=== PATIENT | female | born 1975 | race Caucasian/White ===

== ENCOUNTER 2020-01-09 15:31 | Emergency (ER) | payer OTHER, SELFPAY ==
[2020-01-09 15:36] VITALS: BP 142/82; PULSE 61; RESP 18; TEMP 36.6; O2SAT 100; BMI 49.0
--- NOTE | 2020-01-09 15:46 | ECG_ITS ---
Measurements Intervals [place] Rate: 61 P: 66 CO: 157 QRS: 36 QRSD: 94 T: 61 QT: 423 QTc: 429 SINUS RHYTHM INTERPRETATION BASED ON A DEFAULT AGE OF 40 YEARS Compared to ECG 03/17/2019 23:35:45 No significant changes Electronically Signed On 01-09-2020 20:25:46 SUPERVISOR OF OPERATIONS by Citlaly Jerez M.D. [id number]
== END 2020-01-09 18:40 | disposition left against medical advice (07) ==
LOC: ER 15:42
PROVIDERS: Emergency Provider Family Medicine
DX: R07.81 Pleurodynia (principal); M54.2 Cervicalgia; R53.1 Weakness; R68.84 Jaw pain; M79.602 Pain in left arm; F17.200 Nicotine dependence, unspecified, uncomplicated; Z53.21 Procedure and treatment not carried out due to patient leaving prior to being seen by health care provider
CPT/HCPCS: 93005; 99281; 99283

== ENCOUNTER → 2020-07-11 11:23 | Outpatient (BNVA) | payer OTHER, SELFPAY | PROVIDERS: Visit Provider Nurse Practitioner Family | DX: Z20.828 Contact with and (suspected) exposure to other viral communicable diseases (principal); J06.9 Acute upper respiratory infection, unspecified | CPT/HCPCS: 87635 ==

== ENCOUNTER 2020-09-05 20:00 | Outpatient (CLI) | payer OTHER, SELFPAY | END 2020-09-05 20:01 | disposition home or self-care (01) | LOC: SLEEP 09-06 09:26 | PROVIDERS: Visit Provider Physician Assistant | DX: G47.33 Obstructive sleep apnea (adult) (pediatric) (principal) | CPT/HCPCS: 95810 ==

== ENCOUNTER 2021-01-22 14:47 | Outpatient (CLI) | payer OTHER, SELFPAY ==
--- NOTE | 2021-01-22 14:56 | USCV_ITS ---
Essie Garcia Age: 45 Gender: F : 1975 Exam Date: 01/22/2021 15:09 Ordering Phys: Edna Rodarte PERSONAL SHOPPER Technologist: Edwin Santa Exam Location: [facility] – [place] Indication: LEG SWELLING AND PAIN PROCEDURES: Venous duplex imaging was performed in only the left lower extremity. The following venous structures were evaluated: common femoral vein, profunda vein, proximal portion of the greater saphenous vein, superficial femoral vein, and the popliteal vein. In addition, the posterior tibial and peroneal trunk were evaluated. Serial compression, augmentation maneuvers, and spectral Doppler flow evaluation were performed. FINDINGS: Normal 2-D Doppler and augmentation and compressibility throughout the lower extremity venous structures. Additional imaging through the proximal calf veins also reveals no thrombus. Limited evaluation of the greater saphenous vein is patent with no thrombus.. CONCLUSIONS No evidence of left lower extremity DVT. Neri Altamirano MD (Electronically Signed) Final Date: 22 January 2021 16:50 S
== END 2021-01-22 14:48 | disposition home or self-care (01) ==
LOC: RAD 14:50
PROVIDERS: PCP Nurse Practitioner Family; Visit Provider Nurse Practitioner
DX: M79.89 Other specified soft tissue disorders (principal); M79.605 Pain in left leg
CPT/HCPCS: 93971

== ENCOUNTER 2021-04-28 11:36 | Outpatient (CLI) | payer OTHER, SELFPAY ==
--- NOTE | 2021-04-28 12:20 | XRR_ITS ---
PROCEDURE INFORMATION: Exam: XR Left Knee Exam date and time: 04/28/2021 12:20 PM Age: 46 years old Clinical indication: Pain; Knee; Left; Additional info: Knee pain TECHNIQUE: Imaging protocol: XR Left knee. Views: 1 or 2 views. COMPARISON: No relevant prior studies available. FINDINGS: Bones/joints: Negative for acute bony abnormality. Soft tissues: Normal. XR/XR knee LT 1-2V [id number] IMPRESSION: No acute findings.
--- NOTE | 2021-04-28 12:20 | XRR_ITS ---
PROCEDURE INFORMATION: Exam: XR Right Knee Exam date and time: 04/28/2021 12:20 PM Age: 46 years old Clinical indication: Pain; Knee; Right; Additional info: Knee pain TECHNIQUE: Imaging protocol: XR Right knee. Views: 1 or 2 views. COMPARISON: No relevant prior studies available. FINDINGS: Bones/joints: Normal. Soft tissues: Normal. XR/XR knee RT 1-2V [id number] IMPRESSION: No acute findings.
== END 2021-04-28 11:37 | disposition home or self-care (01) ==
LOC: RAD 11:44
PROVIDERS: PCP Nurse Practitioner Family; Visit Provider Nurse Practitioner
DX: M25.561 Pain in right knee (principal); M25.562 Pain in left knee
CPT/HCPCS: 73560

== ENCOUNTER 2022-02-11 14:20 | Outpatient (CLI) | payer OTHER, SELFPAY ==
--- NOTE | 2022-02-11 14:32 | XR_ITS ---
WS: [id number] XR wrist RT min 3V* [id number] REASON FOR EXAM: PAIN IN RIGHT WRIST FINDINGS: No fracture or focal bone lesion. Unfused ulnar styloid ossification center. Joint spaces of the right wrist are intact and relatively well-preserved No soft tissue abnormality. XR/XR wrist RT min 3V* [id number] IMPRESSION: No significant abnormality.
== END 2022-02-11 14:21 | disposition home or self-care (01) ==
PROVIDERS: PCP Nurse Practitioner Family; Visit Provider Nurse Practitioner Family
DX: M25.531 Pain in right wrist (principal)
CPT/HCPCS: 73110

== ENCOUNTER → 2022-04-04 13:55 | Outpatient (BNVA) | payer OTHER, SELFPAY | PROVIDERS: PCP Nurse Practitioner Family; Visit Provider Podiatrist Foot & Ankle Surgery | DX: M21.612 Bunion of left foot (principal); M79.671 Pain in right foot; M79.672 Pain in left foot | CPT/HCPCS: 73630 ==

== ENCOUNTER → 2022-05-22 16:20 | Outpatient (BNVA) | payer OTHER, SELFPAY | PROVIDERS: PCP Nurse Practitioner Family; Visit Provider Family Medicine | DX: R53.1 Weakness (principal); Z20.822 Contact with and (suspected) exposure to COVID-19 | CPT/HCPCS: 81000; 87635 ==

== ENCOUNTER → 2022-07-04 10:16 | Outpatient (BNVA) | payer OTHER, SELFPAY | PROVIDERS: PCP Nurse Practitioner Family; Visit Provider Emergency Medicine | DX: R50.9 Fever, unspecified (principal); Z20.822 Contact with and (suspected) exposure to COVID-19 | CPT/HCPCS: 87426 ==

== ENCOUNTER 2022-07-10 10:02 | Emergency (ER) | payer OTHER, SELFPAY ==
[2022-07-10 10:07] VITALS: BP 173/104; PULSE 67; RESP 18; TEMP 36.7; O2SAT 96; BMI 52.5
--- NOTE | 2022-07-10 11:48 | W.ED.COVID ---
HPI - COVID General: Chief Complaint: COVID symptoms Stated Complaint: SOB/Covid+ Time Seen by Provider: 07/10/22 12:17 Triage information: Has fever, cough or shortness of breath. Exposure to COVID + person last 14 days History of Present Illness: The patient is in today stating that she tested positive for COVID-19 5 days ago. She reports that over the past 48 hours her fevers have resolved, but she is feeling slightly more short of breath. She feels like she has increased swelling all over her body. She is still coughing. She reports extreme fatigue. She reports that she is monitoring her SPO2 at home and it has been running 93 to 95%. She reports that she is mostly concerned because of her cardiac history. She reports that she has had an FL, and a double bypass surgery. She denies any current chest pain at this time COVID 19 common symptoms: positive chills, cough, non-productive cough, dyspnea, fatigue, body aches, nasal congestion, nausea and diarrhea; negative fever(s), headache(s) or vomiting COVID 19 other sytmptoms: negative chest pain or confusion Onset (ago): day(s) (5) Pertinent comorbid conditions: hypertension, heart disease and obesity COVID Results: SARS-CoV-2 Antigen (Rapid) Positive (Negative) H 07/04/22 10:16 SARS-CoV-2 RNA (RT-PCR) Not detected (NOT DETECTED) 05/22/22 16:20 Review of Systems Const: Reports: chills, body aches and fatigue; Denies: fever(s) ENMT: Reports: nasal congestion Card: Reports: swelling of feet/ankles and dyspnea on exertion; Denies: chest pain, palpitations, irregular heart rhythm, lightheadedness, syncope, pre-syncope or leg pain with exertion Resp: Reports: dyspnea, non-productive cough, wheezing and chest congestion GI: Reports: nausea and diarrhea; Denies: abdominal pain or vomiting : Denies: flank pain, difficulty voiding, dysuria, urinary frequency, urinary urgency or urinary hesitancy Neuro: Denies: headache(s), numbness in extremities, weakness in extremities, sensory changes, lack of coordination, difficulty walking or confusion PFS ED PFSH: Social History Smoking and tobacco status: current every day smoker Physical Exam Const: COMMON NORMALS: no acute distress, patient oriented x3 and alert GENERAL APPEARANCE: cooperative NUTRITIONAL APPEARANCE: obese HENMT: NOSE: Nasal discharge present clear Chest: CHEST: Yes Symmetrical chest wall rise Resp: COMMON NORMALS: normal respiratory effort, No retractions and No use of accessory muscles AUSCULTATION: wheezes scattered wheezes (Scattered expiratory wheezes ) and lung sounds not diminished Cardio: COMMON NORMALS: regular rate, regular rhythm, S1 normal heart sound present and S2 normal heart sound present JUGULAR VENOUS DISTENTION: no JVD RATE: regular rate RHYTHM: regular rhythm HEART SOUNDS: S1 normal heart sound present and S2 normal heart sound present Extremity: GENERAL: Yes edema (Edema bilateral lower extremities. Patient reports chronic) OTHER: Patient reports chronic bilateral lower extremity edema, however she reports that it is a little bit worse over the past week Neuro: COMMON NORMALS: patient oriented x3 SENSORIUM/ORIENTATION: Yes alert Course Vital Signs: Vital signs: Vital Signs Temperature 98.1 F 07/10/22 10:07 Pulse Rate 74 07/10/22 14:14 Respiratory Rate 18 07/10/22 14:14 Blood Pressure 173/104 07/10/22 10:07 Pulse Oximetry 98 07/10/22 14:14 Oxygen Delivery Me thod 07/10/22 10:07 MDM - COVID Medical Decision Making This is a 47-year-old female that is in today for ongoing COVID 19 symptoms. She reports that she tested positive approximately 5 days ago. She reports that she is no longer having fevers, but she is does still have some body aches. She reports being extremely fatigued. She reports an ongoing cough and seemingly worse shortness of breath. She reports that she has been monitoring her SPO2 at home and it has been ranging 93 to 95%. She does have an albuterol inhaler at home. She is mostly concerned because of her cardiac history. She has noted a bit more swelling in her bilateral lower extremities. Differentials include COVID-19, URI, pneumonia, CHF. she is afebrile and here today with blood pressure of 126/87 on recheck. The initial blood pressure recorded was elevated however it was taken right after the patient walked into the ER. On recheck the blood pressure was 126/87. Patient has positive for COVID-19 result from 07/04.. Portable chest x-ray was done no acute changes noted. Advised patient that we will continue conservative treatment at home for this viral respiratory infection. Encouraged coughing and deep breathing exercises, encouraged increased rest, increase fluid intake. Encourage the patient to be up and walking around intermittently at home so she is not just lying in bed for prolonged hours at a time increasing her risk for blood clot. I will start patient on prednisone burst 5-day dose to help with wheezing and respiratory symptoms. Encourage patient to continue use of albuterol inhaler. Advised the patient to follow-up with primary care provider next week. Return to the ER for any new or worsening symptoms, increased shortness of breath, any chest pain. Patient and her spouse are agreeable to discharge instructions. Note is given for work. Lab Data Radiology Impressions Chest X-Ray 07/10/22 12:44 IMPRESSION: 1. No acute cardiopulmonary finding. 2. Mild chronic interstitial changes in the right base. SARS-CoV-2 Antigen (Rapid) Positive (Negative) H 07/04/22 10:16 SARS-CoV-2 RNA (RT-PCR) Not detected (NOT DETECTED) 05/22/22 16:20 Discharge Plan Discharge Patient Disposition: Home Clinical Impression: COVID-19, Viral URI with cough Condition: Stable Prescriptions: New prednisone 20 mg tablet 40 mg PO DAILY 5 Days Qty: 20 0RF No Action aspirin [Adult Aspirin Regimen] 81 mg tablet,delayed release (DR/EC) 81 mg PO ONCE metoprolol succinate 50 mg tablet extended release 24 hr 100 mg PO DAILY levothyroxine 137 mcg capsule 137 mcg PO ONCE lisinopril 10 mg tablet 10 mg PO DAILY clopidogrel [Plavix] 75 mg tablet 75 mg PO ONCE sertraline [Zoloft] 50 mg tablet 50 mg PO DAILY gabapentin 300 mg capsule 300 mg PO DAILY meloxicam 15 mg tablet PO pramipexole 0.5 mg tablet PO pantoprazole 40 mg tablet,delayed release (DR/EC) PO ranolazine 1,000 mg tablet extended release 12 hr PO albuterol sulfate [Ventolin HFA] 90 mcg/actuation HFA aerosol inhaler inhalation furosemide 20 mg tablet PO modafinil 100 mg tablet PO (DME) Articulating AFO to left See Rx Instructions .Route .MEDSUPPLY Qty: 1 0RF Rx Instructions: As directed Discharge Orders: Discharge ED (Routine); Ordered 07/10/22 Ordered By: Melany Sargent Referrals: Meg Sargent FNP [Primary Care Provider] - Discharge Diet: Usual diet Discharge Activity: Increase activity as tolerated Patient Instructions: COVID-19 (Coronavirus Disease 2019) (ED), How to Recover from COVID-19 at Home (ED), Social Distancing Guidelines for COVID-19 (ED) Activity Restrictions/Additional Instructions: Discharge to home. Rest, drink plenty of fluids, be sure to cough and deep breathe 10 times every hour when you are awake. Take medications as prescribed. Follow-up with PCP as needed. Return to the ER for any new or worsening symptoms, increased shortness of breath, difficulty breathing, chest pain. Stand Alone Forms: Work/School Release Coding Level of Care Code ED Gasoline Tester for Carrie Melchor
--- NOTE | 2022-07-10 12:44 | XR_ITS ---
WS: [id number] Exam: XR chest 1V portable [id number] Date/Time of Exam: 07/10/2022 12:57 PM Reason For Exam: shortness of breath, cough, COVID x7 days. Comparison 03/18/2019. The lungs are fully expanded. No acute infiltrates are seen. Mild chronic interstitial changes in the right base are stable. Signs of median sternotomy. Cardiomediastinal silhouette is unremarkable for technique. No pleural effusions. Bony structures are intact. XR/XR chest 1V portable [id number] IMPRESSION: 1. No acute cardiopulmonary finding. 2. Mild chronic interstitial changes in the right base.
[2022-07-10 14:14] VITALS: PULSE 74; RESP 18; O2SAT 98
== END 2022-07-10 14:15 | disposition home or self-care (01) ==
PROVIDERS: Emergency Provider Nurse Practitioner Family; PCP Nurse Practitioner Family
DX: U07.1 COVID-19 (principal); Z79.82 Long term (current) use of aspirin; Z79.02 Long term (current) use of antithrombotics/antiplatelets; F17.210 Nicotine dependence, cigarettes, uncomplicated
CPT/HCPCS: 71045; 99283

== ENCOUNTER 2022-12-22 08:25 | Observation (INO) | payer OTHER, SELFPAY ==
[2022-12-22] VITALS (48 sets, daily range): BP systolic 132–231; BP diastolic 83–120; PULSE 58–66; RESP 12–30; TEMP 36.4–36.7; O2SAT 95–100
--- NOTE | 2022-12-22 08:41 | CT_ITS ---
WS: [id number] CT HEAD NONCONTRAST HISTORY: Symptoms of acute stroke, left-sided weakness. TECHNIQUE: Contiguous axial imaging performed through the brain in 2.5 mm imaging. Bone and soft tiss ue windows. Sagittal and coronal reformats reviewed. All CT scans at [facility] use at least one of these dose optimization techniques: automated exposure control; mA and/or kV adjustment per pa tient size (includes targeted exams where dose is matched to clinical indication); or iterative recon struction. DLP: 1070.58 mGy-cm. COMPARISON: None available. No acute intracranial hemorrhage, midline shift or mass effect. No atrophy or prior infarcts or herniation. No significant atrophy or small vessel disease. Ventricles: Normal size with no hydrocephalus. Paranasal sinuses: Mild mucoperiosteal thickening in the ethmoid air cells. Mastoid air cells: Well pneumatized. Calvarium and scalp: Skull is intact with no soft tissue edema or swelling. CT/CT head thrombolytic [id number] IMPRESSION: 1. No acute intracranial hemorrhage or edema. 2. No sulcal effacement or atrophy.
--- NOTE | 2022-12-22 08:43 | ED_ITS ---
HPI - Neuro Symptoms/Deficit General: Chief Complaint: Neuro Symptoms/Deficit Stated Complaint: numbness on left side Time Seen by Provider: 12/22/22 08:33 History of Present Illness: Patient comes in with numbness of her left tongue, left face, left arm, and left leg that started suddenly about an hour and a half prior to arrival. States she has had episodes of numbness in her tongue in the past that have lasted for 30 minutes to an hour with the last episode being about a week ago. Patient does have a history of coronary artery disease status post stenting and CABG. Associated symptoms: Deny chest pain, headache(s), nausea or vomiting Review of Systems Const: Denies: fever(s) or body aches Eyes: Denies: change in vision or blurry vision ENMT: Denies: throat pain or odynophagia Card: Denies: chest pain or palpitations Resp: Denies: dyspnea or productive cough GI: Denies: abdominal pain, nausea or vomiting : Denies: flank pain or dysuria Musc: Denies: neck pain or back pain Skin/Breast: Denies: rash or pruritus Neuro: Reports: numbness in extremities; Denies: headache(s) Psych: Denies: anxiety or change in appetite Endo: Denies: polyuria or excessive sweating PFSH ED PFSH: Social History Smoking and tobacco status: current every day smoker NIH stroke score NIHSS: Sensory - 8: Mild To Moderate Loss Physical Exam Const: COMMON NORMALS: no acute distress, patient oriented x3, healthy appearing and alert HENMT: COMMON NORMALS: normocephalic and atraumatic HEAD & SCALP: normocephalic and atraumatic Eye: COMMON NORMALS: Equal, round and reactive pupils present and EOMs intact bilaterally PUPIL: Yes Equal, round and reactive pupils present Neck/C-Spine: COMMON NORMALS: full ROM and supple Resp: COMMON NORMALS: normal respiratory effort, No retractions and No use of accessory muscles Cardio: COMMON NORMALS: regular rate and regular rhythm RATE: regular rate RHYTHM: regular rhythm GI: COMMON NORMALS: Normal to inspection, nondistended, normoactive bowel sounds present, Soft to palpation and non-tender PALPATION: Yes Soft to palpation Back/Pelvis: COMMON NORMALS: thoracic and lumbar spine normal to inspection and no thoracic nor lumbar tenderness Extremity: COMMON NORMALS: full ROM Neuro: COMMON NORMALS: patient oriented x3 SENSORIUM/ORIENTATION: Yes alert OTHER: Decreased pinprick sensation on the left face, left arm, left leg Strength is 4-5 in the left leg, 5 out of 5 in the right leg, 5 out of 5 in bilateral upper extremity Psych: COMMON NORMALS: mental status grossly normal and cooperative Skin: COMMON NORMALS: no rashes or lesions noted and no wounds GENERAL SKIN EXAM: no rashes or lesions noted Course Vital Signs: Vital signs: Vital Signs Temperature 97.5 F L 12/22/22 08:27 Pulse Rate 60 12/22/22 10:10 Respiratory Rate 23 H 12/22/22 10:10 Blood Pressure 153/101 12/22/22 10:10 Pulse Oximetry 98 12/22/22 10:10 Oxygen Delivery Me thod 12/22/22 09:00 MDM - Neuro Symptoms/Deficit Medical Decision Making Patient comes in with numbness of her left tongue, left face, left arm, and left leg that started suddenly about an hour and a half prior to arrival. States she has had episodes of numbness in her tongue in the past that have lasted for 30 minutes to an hour with the last episode being about a week ago. Patient does have a history of coronary artery disease status post stenting and CABG. On physical exam she has decreased pinprick sensation to the left face, left arm, and left leg. Strength is 5 out of 5 in bilateral upper extremities and right lower extremity with 4-5 in the left lower extremity. Her NIHSS on initial exam is 1 secondary to sensation loss. Given the timing of onset of symptoms we will activate the stroke team. Will check labs, EKG, CT, consult neurology, and reassess. On reassessment I talked to the patient about the test results. I discussed the case with the hospitalist and we will admit the patient to observation telemetry for further work-up and treatment of a possible stroke. Lab Data 12/22/22 08:42 12/22/22 08:[address] 12/22/22 08:41 IMPRESSION: 1. No acute intracranial hemorrhage or edema. 2. No sulcal effacement or atrophy. Head/Neck CTA 12/22/22 09:24 IMPRESSION: 1. No high-grade cervical carotid artery stenosis identified. 2. Swallowing motion artifact in the distal cervical carotid arteries to the skull base. 3. No thrombus or middle cerebral artery stenosis or plaque identified. 4. Unremarkable [place]. Laboratory Results WBC 7.5 10^3/uL (4.0-10.0) 12/22/22 08:42 RBC 5.25 10^6/uL (4.1-5.3) 12/22/22 08:42 Hgb 16.8 g/dL (11.5-15.3) H 12/22/22 08:42 Hct 51.1 % (37.0-47.0) H 12/22/22 08:42 MCV 97.3 fl (81-99) 12/22/22 08:42 MCH 32.0 pg (28.0-34.0) 12/22/22 08:42 MCHC 32.9 g/dL (30.0-36.0) 12/22/22 08:42 RDW 12.3 % (12.1-15.1) 12/22/22 08:42 Plt Count 150 10^3/cmm (130-400) 12/22/22 08:42 MPV 11.5 fL (7.4-10.4) H 12/22/22 08:42 Neut % (Auto) 60.3 % 12/22/22 08:42 Lymph % (Auto) 31.0 % 12/22/22 08:42 [place] % (Auto) 8.2 % 12/22/22 08:42 Eos % (Auto) 0.1 % 12/22/22 08:42 Baso % (Auto) 0.1 % 12/22/22 08:42 Neut # (Auto) 4.53 10^3/uL (1.8-7.7) 12/22/22 08:42 Lymph # (Auto) 2.3 10^3/uL (0.8-4.8) 12/22/22 08:42 [place] # (Auto) 0.6 10^3/uL (0.2-0.9) 12/22/22 08:42 Eos # (Auto) 0.0 10^3/uL (0.0-0.8) 12/22/22 08:42 Baso # (Auto) 0.0 10^3/uL (0.0-0.1) 12/22/22 08:42 Nucleated RBC % (auto) 0 % 12/22/22 08:42 Nucleated RBCs # 0.0 /100WBC 12/22/22 08:42 PT 13.20 SECONDS (12.1-14.9) 12/22/22 08:42 INR 0.97 (0.8-1.2) 12/22/22 08:42 APTT 30.4 SECONDS (23.9-36.7) 12/22/22 08:42 Sodium 134 mmol/L (136-145) L 12/22/22 08:42 Potassium 4.4 mmol/L (3.5-5.1) 12/22/22 08:42 Chloride 100 mmol/L (98-107) 12/22/22 08:42 Carbon Dioxide 23 mmol/L (22-29) 12/22/22 08:42 Anion Gap 15.4 (5-19) 12/22/22 08:42 BUN 15 mg/dL (6-20) 12/22/22 08:42 Creatinine 0.9 mg/dL (0.5-0.9) 12/22/22 08:42 GFR Calculation 67.1 mL/min (90-130) L 12/22/22 08:42 Glucose 91 mg/dL (65-115) 12/22/22 08:42 POC Glucose 104 mg/dL (70-110) 12/22/22 08:43 Calculated Osmolality 278 mOsm/kg (285-295) L 12/22/22 08:42 Calcium 9.4 mg/dL (8.5-10.5) 12/22/22 08:42 Total Bilirubin 0.6 mg/dL (0.15-1.2) 12/22/22 08:42 AST 87 U/L (0-32) H 12/22/22 08:42 ALT 121 U/L (0-33) H 12/22/22 08:42 Alkaline Phosphatase 116 U/L (35-105) H 12/22/22 08:42 Troponin T Baseline 6 ng/L (0-10) 12/22/22 08:42 Total Protein 7.3 g/dL (6.6-8.7) 12/22/22 08:42 Albumin 4.0 g/dL (3.5-5.2) 12/22/22 08:42 Globulin 3.3 g/dL (1.3-4.6) 12/22/22 08:42 Urine Color Dark yellow (Yellow) 12/22/22 09:34 Urine Appearance Clear (CLEAR) 12/22/22 09:34 Urine pH 5 (5-7) 12/22/22 09:34 Ur Specific [place] 1.015 (1.005-1.030) 12/22/22 09:34 Urine Protein Neg (Negative) 12/22/22 09:34 Urine Glucose (UA) Norm (Normal) 12/22/22 09:34 Urine Ketones Negative (Negative) 12/22/22 09:34 Urine Blood Neg (Negative) 12/22/22 09:34 Urine Nitrate Negative (Negative) 12/22/22 09:34 Urine Bilirubin Neg (Negative) 12/22/22 09:34 Urine Urobilinogen Norm mg/dL (Negative) 12/22/22 09:34 Ur Leukocyte Esterase Negative (Negative) 12/22/22 09:34 Urine Opiates Screen Negative ng/mL (Negative) 12/22/22 09:34 Ur Barbiturates Screen Negative ng/mL (Negative) 12/22/22 09:34 Ur Phencyclidine Scrn Negative ng/mL (Negative) 12/22/22 09:34 Ur Amphetamines Screen Negative ng/mL (Negative) 12/22/22 09:34 U Benzodiazepines Scrn Negative ng/mL (Negative) 12/22/22 09:34 Urine Cocaine Screen Negative ng/mL (Negative) 12/22/22 09:34 U Marijuana (THC) Screen Negative ng/mL (Negative) 12/22/22 09:34 Discharge Plan Discharge Patient Disposition: Placed in Observation Clinical Impression: Stroke-like symptom Coding Level of Care Code ED Signs And Displays Sales Representative for Carrie Melchor
[2022-12-22 08:53] LABS: Glucose Point of Care 104 mg/dL (70-110)
[2022-12-22 09:02] LABS: Basophils % 0.1 %; Eosinophils % 0.1 %; Hematocrit 51.1 % (37.0-47.0); Hemoglobin 16.8 g/dL (11.5-15.3); Lymphocytes # 2.3 10^3/uL (0.8-4.8); Mean Corpuscular HGB Conc 32.9 g/dL (30.0-36.0); Mean Corpuscular Volume 97.3 fl (81-99); Mean Platelet Volume 11.5 fL (7.4-10.4); Monocytes # 0.6 10^3/uL (0.2-0.9); Monocytes % 8.2 %; Neutrophils # 4.53 10^3/uL (1.8-7.7); Neutrophils % 60.3 %; Nucleated Red Blood Cells % 0 %; Platelet Count 150 10^3/cmm (130-400); Red Blood Count 5.25 10^6/uL (4.1-5.3); Red Cell Distribution Width 12.3 % (12.1-15.1); White Blood Count 7.5 10^3/uL (4.0-10.0)
--- NOTE | 2022-12-22 09:10 | ECG_ITS ---
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 Measurements Intervals [place] Rate: 59 P: 45 DC: 156 QRS: 14 QRSD: 92 T: 53 QT: 437 QTc: 436 Interpretive Statements SINUS BRADYCARDIA POSSIBLE ANTERIOR MYOCARDIAL INFARCTION , OF INDETERMINATE AGE [30 ms Q WAVE IN V3/V4, OR R < 0.2 mV IN V4] Compared to ECG 01/09/2020 15:43:34 Myocardial infarct finding now present Sinus rhythm no longer present Electronically Signed On 12-22-2022 11:19:25 PATROL OFFICER by Marquez Woodruff M.D. [id number]
[2022-12-22 09:13] LABS: INR 0.97 (0.8-1.2)
[2022-12-22 09:14] LABS: Partial Thromboplastin Time 30.4 SECONDS (23.9-36.7)
--- NOTE | 2022-12-22 09:15 | PC.PHAR ---
pt states she takes the medications entered-ext med history shows macrobid 100mg bid filled 12/17/22 7d/s pt states not taking states they filled it by mistake-
[2022-12-22 09:20] LABS: Alanine Aminotransferase 121 U/L (0-33); Alkaline Phosphatase 116 U/L (35-105); Anion Gap 15.4 (5-19); Aspartate Amino Transferase 87 U/L (0-32); Blood Urea Nitrogen 15 mg/dL (6-20); Calcium 9.4 mg/dL (8.5-10.5); Carbon Dioxide 23 mmol/L (22-29); Chloride 100 mmol/L (98-107); Creatinine Clr Calc Pharmacy 109.7155; Globulin 3.3 g/dL (1.3-4.6); Glomerular Filtration Rate 67.1 mL/min (90-130); Glucose 91 mg/dL (65-115); Osmolality Calculated 278 mOsm/kg (285-295); Potassium 4.4 mmol/L (3.5-5.1); Sodium 134 mmol/L (136-145); Total Bilirubin 0.6 mg/dL (0.15-1.2); Total Protein 7.3 g/dL (6.6-8.7)
[2022-12-22 09:21] LABS: Troponin(5th) Baseline 6 ng/L (0-10)
--- NOTE | 2022-12-22 09:24 | CT_ITS ---
WS: [id number] CT ANGIOGRAM CEREBRAL AND CAROTID ARTERIES HISTORY: stroke, left-sided weakness. TECHNIQUE: CT angiogram is performed of the carotid and cerebral arteries. During arterial injection imaging is obtained from the skull vertex to the aortic arch in 1.25 mm imaging. Coronal and sagittal reformats are submitted. Additional multi planar reformats of the carotid and cerebral arteries are submitted, MIP imaging also reviewed. NASCET criteria utilized. [facility] at least one of these dose optimization techniques: automated exposure control; mA and/or kV adjust ment per patient size (includes targeted exams where dose is matched to clinical indication); or iter ative reconstruction. CONTRAST: Omnipaque 350; 100 mL IV. DLP: 496.11 mGy.cm COMPARISON: None available. Carotid Angiogram: Right carotid: Common carotid artery: Arises normally from the innominate artery. No significant plaque or stenosis. Internal carotid artery: Small amount of calcified plaque and intimal thickening at the bifurcation. Motion artifact beginning at the skull base and upper cervical region. External carotid artery: Patent. Left carotid: Common carotid artery: Arises normally from the aorta. No significant plaque or stenosis. Internal carotid artery: Small amount of calcified plaque and intimal thickening. Portions of the dis tita cervical carotid artery are distorted by motion artifact. This is probably swallowing artifact. T here is a mild stenosis due to calcified plaque but the exact stenosis is difficult to quantify. External carotid artery: Patent. Right vertebral artery: Unremarkable. Left vertebral artery: Unremarkable. Arises normally from the subclavian artery. Subclavian arteries: Small noncalcified plaque and intimal thickening at the LEFT origin. Negative RI GHT subclavian artery. Upper thorax: 22 Thyroid gland: Normal. Osseous structures: Straightening reversal the normal cervical lordosis. CEREBRAL ANGIOGRAM: Intracranial vertebral arteries: Normal with no significant atherosclerosis. Basilar artery: No significant stenosis or occlusion. No aneurysm. Intracranial Internal carotid arteries: Swallowing motion artifact at the skull base. Normal caliber through the cavernous sinuses. No obstruction. Mild plaque. Middle cerebral arteries: Normal. Anterior cerebral arteries and ACOM: Normal. Posterior cerebral arteries and PCOM's: Normal. Dural venous sinuses are normally enhancing. Mastoid air cells: Normal. Paranasal sinuses: Normal. Calvarium: Normal. CT/CT angio headneck* [id number] IMPRESSION: 1. No high-grade cervical carotid artery stenosis identified. 2. Swallowing motion artifact in the distal cervical carotid arteries to the s kull base. 3. No thrombus or middle cerebral artery stenosis or plaque identified. 4. Unremarkable [place].
[2022-12-22 09:43] LABS: Add Urine Microscopic? NO; Charge for UA Resulting for Rev
[2022-12-22 09:48] LABS: Bilirubin Urine Neg (Negative); Blood Urine Neg (Negative); Glucose Urine UA Norm (Normal); Ketones Urine Negative (Negative); Leukocyte Esterase Urine Negative (Negative); Nitrate Urine Negative (Negative); Protein Urine Neg (Negative); Specific Gravity, Urine 1.015 (1.005-1.030); Urine Appearance Clear (CLEAR); Urine Color Dark Yellow (Yellow); Urobilinogen Urine Norm (Negative); pH Urine 5 (5-7)
[2022-12-22 09:56] LABS: Amphetamines Screen Urine Negative (Negative); Barbiturates Screen Urine Negative (Negative); Benzodiazepines Screen Urine Negative (Negative); Cocaine Screen Urine Negative (Negative); Opiate Screen Urine Negative (Negative); PCP Screen Urine Negative (Negative); THC Screen Urine Negative (Negative)
[2022-12-22] MEDS: iohexol 350 mg/mL 500 mL Btl (per mL) IV (09:59)
--- NOTE | 2022-12-22 10:42 | ECG_ITS ---
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 [id number]
--- NOTE | 2022-12-22 11:25 | PM.HP ---
Providers/Chief Complaint Admitting Physician: William Gates MD, hospitalist Primary Care Provider: JEAN Le Chief Complaint: numbness on left side History of Present Illness Essie Garcia is a 47 year old female presenting to the emergency department with complaints of numbness tingling of her left tongue, left face, left arm and left leg. She also related some left leg weakness that was very mild. She states all the symptoms started around 7 AM at work. She was not exerting herself heavily when the symptoms came on. She also felt slightly nauseated. She denied any chest discomfort. She states symptoms have mainly gone away at this time. Symptomatology lasted from about 7-9 30. In the emergency department she scored a [address] score[address] head, CTA head and neck were both done. She denies any recent illness. She has not had significant cough or shortness of breath more than her baseline. She states she has some secondary to long smoking history. She reports she has some chronic pain, and chronic neck pain. She also relates history of significant anxiety. She has seen a neurologist before, and an MRI was completed in late October which was essentially normal. Since that time however she has had repetitive episodes of midline tongue numbness that would go away on its own. She reports at least 10 episodes with the last being last week. She is compliant with her Plavix and aspirin. No headache. Review of Systems Const: Reports: malaise; Denies: fever(s) or chills Eyes: Denies: change in vision ENMT: Denies: throat pain Card: Denies: chest pain Resp: Denies: dyspnea GI: Reports: nausea; Denies: abdominal pain, vomiting, hematemesis, coffee ground emesis, hematochezia or melena : Denies: flank pain Musc: Reports: neck pain Skin/Breast: Denies: rash Neuro: Reports: weakness in extremities and sensory changes; Denies: headache(s) Psych: Reports: anxiety and depression Endo: Denies: polyuria John/Lymph: Denies: easy bruising All/Imm: Denies: urticaria Medications/Allergies Home Medications Medication Instructions Recorded Confirmed Last Taken Type aspirin 81 mg tablet,delayed 81 mg PO QA 11/10/19 12/22/22 12/22/22 History release (Adult Low Dose Aspirin) clopidogrel 75 mg tablet (Plavix) 75 mg PO BEDTIME 11/10/19 12/22/22 12/21/22 History meloxicam 15 mg tablet 15 mg PO BEDTIME 04/04/22 12/22/22 12/21/22 History pramipexole 0.5 mg tablet 0.5 mg PO DAILY PRN Restless Leg(S) 04/04/22 12/22/22 Unknown History Articulating AFO to left #1 ea 05/02/22 12/22/22 Unknown Rx albuterol sulfate 90 mcg/actuation 2 puff inhalation QID PRN 12/22/22 12/22/22 Unknown History aerosol inhaler (Ventolin HFA) Shortness Of Breath gabapentin 100 mg capsule 100 mg PO BID PRN unknown 12/22/22 12/22/22 Unknown History levothyroxine 175 mcg tablet 175 mcg PO QAM 12/22/22 12/22/22 12/22/22 History metoprolol tartrate 25 mg tablet 12.5 mg PO BID 12/22/22 12/22/22 12/22/22 History omeprazole 40 mg capsule,delayed 40 mg PO BEDTIME 12/22/22 12/22/22 12/21/22 History release ranolazine 1,000 mg 1,000 mg PO Q12H 12/22/22 12/22/22 12/22/22 History tablet,extended release,12 hr Allergies Allergy/AdvReac Type Severity Reaction Status Date / Time codeine Allergy Unknown Unknown Verified 12/22/22 09:05 PFSH Acute PFSH: Medical History (Updated 12/22/22 @ 11:40 by William Gates MD) Anxiety Coronary artery disease GERD (gastroesophageal reflux disease) Hypothyroidism Surgical History (Updated 12/22/22 @ 11:30 by William Gates MD) History of cholecystectomy History of coronary artery bypass graft History of hysterectomy History of tonsillectomy History of tubal ligation Family History (Updated 12/22/22 @ 11:30 by William Gates MD) Other CAD (coronary artery disease) Stroke Social History (Updated 12/22/22 @ 11:30 by William Gates MD) Smoking and tobacco status: current every day smoker Alcohol intake: never Vitals/I&O/Wt Last Vital Signs Temp 97.5 F L 12/22/22 08:27 Pulse 59 L 12/22/22 11:05 Resp 13 12/22/22 11:05 BP 161/94 12/22/22 11:05 Pulse Ox 99 12/22/22 11:05 O2 Del Method 12/22/22 09:00 Weight last 48 hrs Weight 139.344 kg Physical Exam Narrative: General exam is no apparent distress. It is obvious that her swallowing appears intact during the exam, with swallowing saliva, etc without difficulties HEENT: Atraumatic normocephalic. Pupils equally round. Oropharynx clear. Neck is supple no lymphadenopathy thyromegaly Cardiovascular regular rate and rhythm without murmur Lungs clear no wheezing or crackles Abdomen soft with positive bowel sounds. Obese. No obvious organomegaly exams deferred Extremities no cyanosis clubbing or edema Skin no rash Neuro no obvious focal deficits. Refer to NIHSS score of 1 given by the emergency department physician. It is certainly hard to detect any deficit on her general exam currently. Data 12/22/22 08:42 12/22/22 08:42 Other Labs: PT and PTT are normal Calcium 9.4 LFTs slightly elevated as far as AST, ALT, alk phos Troponin 6 with repeat pending TSH 0.12 which I ordered Urinalysis negative Urine drug screen negative CT head no acute findings CTA head and neck no flow-limiting lesions, mild atherosclerotic disease EKG demonstrates normal sinus rhythm, normal axis, poor R wave progression cannot rule out previous anterior myocardial infarction I reviewed her previous outside MRI which she had records available on her phone. A&P Assessment and plan (1) Stroke-like symptom: Patient has had strokelike symptoms involving numbness and tingling left side of face, left arm, left leg and a small amount of weakness detected left leg. Symptoms have already significantly resolved She has history of atherosclerotic disease, and some is seen on her CTA of her head and neck although this is not flow-limiting. CT head was negative Initial NIHSS score 1 Continue to follow neurologic exam Check echocardiogram Continue telemetry Possible event monitor on discharge MR head Continue patient's Plavix Continue aspirin, increase to 162 mg daily Lipid profile in the morning Start statin Permissive hypertension Check chest x-ray I ordered a TSH, as below I reviewed previous MRI from outpatient records (2) Coronary artery disease: Continue her Plavix, aspirin, beta-[place] Add statin (3) Hypothyroidism: Reduce her thyroid hormone (4) Anxiety: Discussed with patient that this may need to be treated in the future. She is worried about side effects of medication. This could be playing a role as well on her clinical presentation. Plan Nicotine dependence. Add nicotine patch Transaminitis. Check hepatitis panel Other medical problems as outlined in past medical history Attestations Medical Necessity Statement*: Will need less than 2 midnight stay for evaluation and treatment of left-sided strokelike symptoms Diagnoses Stroke-like symptom R29.90 Coronary artery disease I25.10 Hypothyroidism E03.9 Anxiety F41.9 Time Spent (min) 47
[2022-12-22 11:27] LABS: Thyroid Stimulating Hormone 0.12 uIU/mL (0.27-4.20)
--- NOTE | 2022-12-22 11:33 | XRR_ITS ---
PROCEDURE INFORMATION: Exam: XR Chest Exam date and time: 12/22/2022 11:41 AM Age: 47 years old Clinical indication: Other: TIA; Prior surgery TECHNIQUE: Imaging protocol: Radiologic exam of the chest. Views: 1 view. COMPARISON: CR XR chest 1V portable [id number] 07/10/2022 1:14 PM FINDINGS: Lungs: Unremarkable. No consolidation. Pleural spaces: Unremarkable. No pleural effusion. No pneumothorax. Heart/Mediastinum: Unremarkable. No cardiomegaly. Bones/joints: Metallic sternotomy wires are present. XR/XR chest 1V portable [id number] IMPRESSION: 1. No acute findings. 2. Metallic sternotomy wires are present
--- NOTE | 2022-12-22 11:33 | USCV_ITS ---
Essie Garcia Age: 47 Gender: F : 1975 Exam Date: 12/22/2022 14:18 Ordering Phys: William Gates MD Technologist: Edwin Santa Exam Location: [facility] [place] Indication: TIA BP: 130 / 87 HR: 61 Rhythm: Sinus Technical Quality: Adequate MEASUREMENTS (Male / Female) Normal Values 2D ECHO LV Diastolic Diameter PLAX 4.8 cm 4.2 - 5.9 / 3.9 - 5.3 cm LV Systolic Diameter PLAX 3.3 cm IVS Diastolic Thickness 1.0 cm 0.6 - 1.0 / 0.6 - 0.9 cm IVS Systolic Thickness 1.0 cm LVPW Diastolic Thickness 1.3 cm 0.6 - 1.0 / 0.6 - 0.9 cm LVPW Systolic Thickness 1.9 cm LVOT Diameter 2.0 cm LV Ejection Fraction 2D Teich 60.5 % LV Ejection Fraction MOD 2C 74.6 % LV Ejection Fraction 2C AL 74.8 % LA Diameter 3.3 cm LA Width 2.8 cm LA Height 4.4 cm RA Width 3.3 cm RA Height 4.6 cm Aorta at Sinotubular Diameter 2.5 cm IVC Diameter 1.7 cm M-MODE Aortic Annulus Diameter 3.0 cm LA Ao Ratio MM 1.0 MV E Point Septal Separation 0.4 cm DOPPLER AV Peak Velocity 152.0 cm/s LVOT Peak Velocity 138.0 cm/s AV Area Cont Eq vti 2.8 cm squared AV Area Cont Eq pk 3.0 cm squared MV Peak Velocity 104.0 cm/s MV Area PHT 3.4 cm squared Mitral E to A Ratio 0.8 MV E' Velocity 35.5 cm/s Mitral E to MV E' Ratio 8.1 Mitral E to LV E' Lateral Ratio 7.6 Mitral E to LV E' Septal Ratio 8.8 TR Peak Velocity 215.8 cm/s TR Peak Gradient 18.6 mmHg TR Mean Velocity 180.7 cm/s TR Mean Gradient 13.4 mmHg TR Velocity Time Integral 54.3 cm Right Atrial Pressure 3.0 mmHg Pulmonary Artery Systolic Pressu 21.6 mmHg PV Peak Velocity 94.3 cm/s RV Acceleration Time 0.1 s RV Ejection Time 0.3 s RV AcT/ET 0.3 FINDINGS Left Ventricle Left ventricle is normal in size. LV systolic function is normal with EF of 55 to 60%. No regional wall motion abnormalities are seen. Grade 1 diastolic dysfunction Right Ventricle Normal in size and function Right Atrium Normal in size Left Atrium Normal in size Mitral Valve Structurally normal mitral valve. Mild mitral regurgitation. Aortic Valve Structurally normal aortic valve. No significant stenosis or regurgitation. Tricuspid Valve Mild tricuspid regurgitation. Pulmonary artery systolic pressure is normal. Pulmonic Valve Not well-visualized Pericardium Normal Aorta Normal in size IVC Appears to be normal CONCLUSIONS LV systolic function is normal with EF 55 to 60%. Grade 1 diastolic dysfunction Mild mitral regurgitation Mild tricuspid regurgitation Compared to prior echocardiogram from 2017, no significant changes are seen. Marquez Woodruff MD (Electronically Signed) Final Date: 22 December 2022 17:59 S
[2022-12-22 12:16] LABS: Troponin 5 2HR Delta 0 ABS# (0-10)
[2022-12-22] MEDS: aspirin 81 mg EC Tablet PO (12:19)
[2022-12-22] MEDS: nicotine 21 mg Patch 1 PATCH TRANSDERMA (12:28)
--- NOTE | 2022-12-22 13:17 | MR_ITS ---
WS: [id number] MRI HEAD WITH CONTRAST TECHNIQUE: Sagittal T1, T2 axial, T2 axial FLAIR, axial susceptibility weighted imaging, axial diffus ion weighted images, and coronal T2 images were obtained. Pre and post-T1 axial and post T1 coronal i mages. ADC and FSPGR images. CLINICAL INFORMATION: left sided numbness, left leg weakness COMPARISON: MRI [address] December 22, 2022 FINDINGS: No evidence of restricted diffusion to suggest acute ischemia. Ventricular system and basal cisterns are patent. No suspicious intracranial signal abnormalities. Normal wing-white differentiation. Serena l posterior fossa. Normal vascular flow voids at the skull base. No extra-axial fluid collections. No evidence of mass or mass effect. Mild mucosal thickening in the paranasal sinuses. Mastoid air cells are well aerated. No hemosiderin on the susceptibly weighted images. Normal optic chiasm and pituitary infundibulum. No abnormal intracranial enhancement. Normal dural venous sinuses. Normal posterior nasopharynx. Norm al parapharyngeal fat. MR/MR head wo/w con [id number] IMPRESSION: 1. No evidence of restricted diffusion to suggest acute ischemia. 2. No suspicious intracranial signal abnormalities. 3. No abnormal intracranial enhancement. 4. No acute intracranial findings.
--- NOTE | 2022-12-22 13:39 | ECG_ITS ---
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 [id number]
[2022-12-22 15:12] LABS: Troponin 5 6HR Delta 0 ng/L (0-12)
[2022-12-22 15:14] LABS: Hepatitis A Antibody IgM Non-Reactive (Nonreactive); Hepatitis B Core IgM Non-Reactive (Nonreactive); Hepatitis B Surface Antigen Non-Reactive (Nonreactive); Hepatitis C Virus Antibody Non-Reactive (Nonreactive)
[2022-12-22] MEDS: gadobenate dimeglumine 20 mL vial IV (16:34)
[2022-12-22] MEDS: metoprolol tartrate 25 mg Tablet 12.5 MG PO (18:13)
--- NOTE | 2022-12-22 18:13 | PM.DCS ---
Discharge Providers Date of Admission: 12/22/22 10:46 Date of Discharge: December 22, 2022 Attending Provider at Admission: William Gates MD Attending Provider at Discharge: William Gates MD Primary Care Provider: JEAN Le Diagnoses at Discharge Discharge Diagnosis (1) Stroke-like symptom: Status: Acute (2) Coronary artery disease: Status: Acute (3) Hypothyroidism: Status: Acute (4) Anxiety: Status: Acute Reason for Visit Reason for Visit: numbness on left side Hospital Course Hospital Course Essie is a 47-year-old white female who presented to the hospital with complaints of numbness and tingling around her left tongue, left face, left arm and left leg. There was some question about mild diminished strength left lower extremity. By the time I had seen her her neurologic symptoms gone away. She had had a CT head which demonstrated no acute changes, no bleed, no obvious CVA. CTA head and neck demonstrated no thrombus. EKG demonstrated normal sinus rhythm. She was placed in the hospital on telemetry, with orders for an MRI as well as an echocardiogram. MRI demonstrated no acute findings. Prior to her echocardiogram coming back patient reported she wanted to leave. It was apparent from her desire that she would leave AGAINST MEDICAL ADVICE or discharge, but either way she would be leaving. I discussed with her the risks and benefits of discharge over the phone as I was not present at the hospital when she made this decision. She demonstrated understanding of risks of early discharge without full results of test or follow-up arranged. She reported to me she would see her nurse practitioner promptly after discharge, and arrange follow-up with her neurologist. I discussed with her that her echocardiogram was not available, but would be available likely the next day and this would be forwarded to her nurse practitioner. I stated I would try to contact if it was markedly abnormal. I discussed with her medication changes such as increasing her aspirin to 162 mg, initiating a statin, reducing her dose of levothyroxine all of which she agreed to at this time. Echocardiogram came back after she left with a normal EF, grade 1 diastolic dysfunction, mild mitral and tricuspid regurgitation and no real significant change from previous echocardiogram. I would recommend an event monitor be placed, and contacted her primary care provider regarding this. Physical Exam Narrative: See exam done earlier today Discharge Data Studies Completed and Pending Completed Studies During Hospitalization Category Date Time Status CT angio headneck* [id number] Stat Cat Scan 12/22/22 09:[address] head thrombolytic [id number] Stat Cat Scan 12/22/22 08:41 Completed XR chest 1V portable [id number] Stat Exams 12/22/22 11:33 Completed MR head wo/w con [id number] Routine MRI 12/22/22 13:17 Completed CV. echo complete* [id number] Routine Ultrasound 12/22/22 11:33 Completed Pending at discharge Category Date Time Status CBC Auto Diff [Complete Blood Count w/Auto] AM LABS Lab 12/23/22 04:00 Ordered CMP [Comprehensive Metabolic Panel] AM LABS Lab 12/23/22 04:00 Ordered Hemoglobin A1C AM LABS Lab 12/23/22 04:00 Ordered Lipid Panel AM LABS Lab 12/23/22 04:00 Ordered Radiology Impressions Head CT 12/22/22 08:41 IMPRESSION: 1. No acute intracranial hemorrhage or edema. 2. No sulcal effacement or atrophy. Head/Neck CTA 12/22/22 09:24 IMPRESSION: 1. No high-grade cervical carotid artery stenosis identified. 2. Swallowing motion artifact in the distal cervical carotid arteries to the skull base. 3. No thrombus or middle cerebral artery stenosis or plaque identified. 4. Unremarkable [facility]. Chest X-Ray 12/22/22 11:33 IMPRESSION: 1. No acute findings. 2. Metallic sternotomy wires are present Head MRI 12/22/22 13:17 IMPRESSION: 1. No evidence of restricted diffusion to suggest acute ischemia. 2. No suspicious intracranial signal abnormalities. 3. No abnormal intracranial enhancement. 4. No acute intracranial findings. Laboratory Results WBC 7.5 10^3/uL (4.0-10.0) 12/22/22 08:42 RBC 5.25 10^6/uL (4.1-5.3) 12/22/22 08:42 Hgb 16.8 g/dL (11.5-15.3) H 12/22/22 08:42 Hct 51.1 % (37.0-47.0) H 12/22/22 08:42 MCV 97.3 fl (81-99) 12/22/22 08:42 MCH 32.0 pg (28.0-34.0) 12/22/22 08:42 MCHC 32.9 g/dL (30.0-36.0) 12/22/22 08:42 RDW 12.3 % (12.1-15.1) 12/22/22 08:42 Plt Count 150 10^3/cmm (130-400) 12/22/22 08:42 MPV 11.5 fL (7.4-10.4) H 12/22/22 08:42 Neut % (Auto) 60.3 % 12/22/22 08:42 Lymph % (Auto) 31.0 % 12/22/22 08:42 Daniels % (Auto) 8.2 % 12/22/22 08:42 Eos % (Auto) 0.1 % 12/22/22 08:42 Baso % (Auto) 0.1 % 12/22/22 08:42 Neut # (Auto) 4.53 10^3/uL (1.8-7.7) 12/22/22 08:42 Lymph # (Auto) 2.3 10^3/uL (0.8-4.8) 12/22/22 08:42 Daniels # (Auto) 0.6 10^3/uL (0.2-0.9) 12/22/22 08:42 Eos # (Auto) 0.0 10^3/uL (0.0-0.8) 12/22/22 08:42 Baso # (Auto) 0.0 10^3/uL (0.0-0.1) 12/22/22 08:42 Nucleated RBC % (auto) 0 % 12/22/22 08:42 Nucleated RBCs # 0.0 /100WBC 12/22/22 08:42 PT 13.20 SECONDS (12.1-14.9) 12/22/22 08:42 INR 0.97 (0.8-1.2) 12/22/22 08:42 APTT 30.4 SECONDS (23.9-36.7) 12/22/22 08:42 Sodium 134 mmol/L (136-145) L 12/22/22 08:42 Potassium 4.4 mmol/L (3.5-5.1) 12/22/22 08:42 Chloride 100 mmol/L (98-107) 12/22/22 08:42 Carbon Dioxide 23 mmol/L (22-29) 12/22/22 08:42 Anion Gap 15.4 (5-19) 12/22/22 08:42 BUN 15 mg/dL (6-20) 12/22/22 08:42 Creatinine 0.9 mg/dL (0.5-0.9) 12/22/22 08:42 GFR Calculation 67.1 mL/min (90-130) L 12/22/22 08:42 Glucose 91 mg/dL (65-115) 12/22/22 08:42 POC Glucose 104 mg/dL (70-110) 12/22/22 08:43 Calculated Osmolality 278 mOsm/kg (285-295) L 12/22/22 08:42 Calcium 9.4 mg/dL (8.5-10.5) 12/22/22 08:42 Total Bilirubin 0.6 mg/dL (0.15-1.2) 12/22/22 08:42 AST 87 U/L (0-32) H 12/22/22 08:42 ALT 121 U/L (0-33) H 12/22/22 08:42 Alkaline Phosphatase 116 U/L (35-105) H 12/22/22 08:42 Troponin T Baseline 6 ng/L (0-10) 12/22/22 08:42 Troponin T 120 Minute 6.00 ng/L (0-10) 12/22/22 11:22 Delta Troponin T 0 ABS# (0-10) 12/22/22 11:22 Troponin T Hi Sens 6Hr 6.00 ng/L (0-10) 12/22/22 14:25 Troponin T Hi Sens 6Hr Delta 0 ng/L (0-12) 12/22/22 14:25 Total Protein 7.3 g/dL (6.6-8.7) 12/22/22 08:42 Albumin 4.0 g/dL (3.5-5.2) 12/22/22 08:42 Globulin 3.3 g/dL (1.3-4.6) 12/22/22 08:42 TSH 0.12 uIU/mL (0.27-4.20) L 12/22/22 08:45 Urine Color Dark yellow (Yellow) 12/22/22 09:34 Urine Appearance Clear (CLEAR) 12/22/22 09:34 Urine pH 5 (5-7) 12/22/22 09:[address] 1.015 (1.005-1.030) 12/22/22 09:34 Urine Protein Neg (Negative) 12/22/22 09:34 Urine Glucose (UA) Norm (Normal) 12/22/22 09:34 Urine Ketones Negative (Negative) 12/22/22 09:34 Urine Blood Neg (Negative) 12/22/22 09:34 Urine Nitrate Negative (Negative) 12/22/22 09:34 Urine Bilirubin Neg (Negative) 12/22/22 09:34 Urine Urobilinogen Norm mg/dL (Negative) 12/22/22 09:34 Ur Leukocyte Esterase Negative (Negative) 12/22/22 09:34 Urine Opiates Screen Negative ng/mL (Negative) 12/22/22 09:34 Ur Barbiturates Screen Negative ng/mL (Negative) 12/22/22 09:34 Ur Phencyclidine Scrn Negative ng/mL (Negative) 12/22/22 09:34 Ur Amphetamines Screen Negative ng/mL (Negative) 12/22/22 09:34 U Benzodiazepines Scrn Negative ng/mL (Negative) 12/22/22 09:34 Urine Cocaine Screen Negative ng/mL (Negative) 12/22/22 09:34 U Marijuana (THC) Screen Negative ng/mL (Negative) 12/22/22 09:34 Hepatitis A IgM Ab Non-reactive (Nonreactive) 12/22/22 14:25 Hep Bs Antigen Non-reactive (Nonreactive) 12/22/22 14:25 Hep B Core IgM Ab Non-reactive (Nonreactive) 12/22/22 14:25 Hepatitis C Antibody Non-reactive (Nonreactive) 12/22/22 14:25 Vitals Last Vital Signs Temp 97.7 F 12/22/22 15:47 Pulse 64 12/22/22 15:47 Resp 18 12/22/22 15:47 BP 141/93 12/22/22 15:47 Pulse Ox 98 12/22/22 15:47 O2 Del Method 12/22/22 15:47 Discharge Plan Discharge Patient Disposition: Home Condition: Stable Prescriptions: New atorvastatin 40 mg Tablet 40 mg PO BEDTIME Qty: 30 0RF levothyroxine 150 mcg Tablet 150 mcg PO DAILY Qty: 30 0RF aspirin 81 mg Tablet,Delayed Release (Dr/Ec) 162 mg PO DAILY Qty: 60 0RF Continued clopidogrel [Plavix] 75 mg tablet 75 mg PO BEDTIME pramipexole 0.5 mg tablet 0.5 mg PO DAILY PRN (Reason: Restless Leg(S)) (DME) Articulating AFO to left See Rx Instructions .Route .MEDSUPPLY Qty: 1 0RF Rx Instructions: As directed omeprazole 40 mg capsule,delayed release(DR/EC) 40 mg PO BEDTIME Ventolin HFA 90 mcg/actuation Hfa Aerosol Inhaler 2 puff INHALATION QID PRN (Reason: Shortness Of Breath) metoprolol tartrate 25 mg tablet 12.5 mg PO BID ranolazine 1,000 mg tablet extended release 12 hr 1,000 mg PO Q12H Discontinued aspirin [Adult Low Dose Aspirin] 81 mg tablet,delayed release (DR/EC) 81 mg PO QAM meloxicam 15 mg tablet 15 mg PO BEDTIME levothyroxine 175 mcg tablet 175 mcg PO QAM gabapentin 100 mg Capsule 100 mg PO BID PRN (Reason: unknown) Discharge Orders: Discharge Order (Routine); Ordered 12/22/22 Ordered By: William Gates Referrals: Meg Sargent, COMPLIANCE NURSE [Primary Care Provider] - 4-7 days (faxed for appointment with MEG SARGENT COMPLIANCE NURSE) Discharge Diet: Cardiac Patient Instructions: Levothyroxine (By mouth), Aspirin (By mouth), Atorvastatin (By mouth) (Lipitor), Transient Ischemic Attack (DC), Coronary Artery Disease (DC), Opioid Safety Activity Restrictions/Additional Instructions: Take all meds as prescribed. Follow up with your PCP in 3-5 days. Return for any return of symptoms.. Keep your neurology appointment. Discharge Attestations Time Spent in Discharge Care*: greater than 30 min Time Spent in Smoking Cessation: 3-5 minutes Quality Metrics Clinical Quality Measures [ No reported AMI, CVA or VTE this stay] Coding Level of Care Code 51118 Total time (in minutes) for Discharge: 38 Other Coding Information Focused coding review requested patient was discharged unexpectantly same day as admission. Diagnoses Stroke-like symptom R29.90 Coronary artery disease I25.10 Hypothyroidism E03.9 Anxiety F41.9
[2022-12-22] MEDS: ranolazine (12HR) 500 mg Tablet 1000 MG PO (18:14)
--- NOTE | 2022-12-22 19:47 | PC.NURSE ---
Discussed discharge order with patient and spouse. Patient will call for appointment for follow up. Discussed new medications and discontinued medications. Patient verbalized understanding
== END 2022-12-22 19:54 | disposition home or self-care (01) ==
LOC: ER 12:29 → MEDSURG 12:35
PROVIDERS: Admitting Provider Internal Medicine; Emergency Provider Emergency Medicine; PCP Nurse Practitioner Family; Visit Provider Internal Medicine
DX: R29.90 Unspecified symptoms and signs involving the nervous system (principal); I25.10 Atherosclerotic heart disease of native coronary artery without angina pectoris; E03.9 Hypothyroidism, unspecified; F41.9 Anxiety disorder, unspecified; I49.5 Sick sinus syndrome; F17.210 Nicotine dependence, cigarettes, uncomplicated; Z79.82 Long term (current) use of aspirin
CPT/HCPCS: 36415; 36416; 70450; 70496; 70498; 70553; 71045; 80053; 80074; 80306; 81003; 82962; 84443; 84484; 85025; 85610; 85730; 93005; 93306; 97165; 99285; A9577; G0378; Q9967

== ENCOUNTER 2023-06-08 14:36 | Outpatient (CLI) | payer SELFPAY ==
--- NOTE | 2023-06-08 14:58 | XRR_ITS ---
PROCEDURE INFORMATION: Exam: XR Left Knee Exam date and time: 06/08/2023 3:03 PM Age: 48 years old Clinical indication: Pain; Knee; Right; Additional info: Pain in left knee TECHNIQUE: Imaging protocol: Radiologic exam of the left knee. Views: 3 views. COMPARISON: CR XR knee LT 1-2V [id number] 04/28/2021 12:26 PM FINDINGS: Bones/joints: Osseous structures are intact. Negative for fracture. Joint spaces are preserved. Soft tissues: Normal. XR/XR knee LT 3V* [id number] IMPRESSION: No acute findings.
--- NOTE | 2023-06-08 14:58 | XRR_ITS ---
PROCEDURE INFORMATION: Exam: XR Bilateral Hips Exam date and time: 06/08/2023 3:03 PM Age: 48 years old Clinical indication: Hip pain; Bilateral; Additional info: Bilateral hip pain, to include the pelvis TECHNIQUE: Imaging protocol: Radiologic exam of the bilateral hips. Views: 2 views of hips with pelvis when performed. COMPARISON: CT abdomen pelvis w con* [id number] 03/02/2017 11:48 AM FINDINGS: Bones/joints: Unremarkable. No acute fracture. Soft tissues: Unremarkable. XR/XR hip BI 3-4V wo/w pel [id number] IMPRESSION: No acute findings.
== END 2023-06-08 14:37 | disposition home or self-care (01) ==
PROVIDERS: PCP Nurse Practitioner Family; Visit Provider Nurse Practitioner Family
DX: M25.551 Pain in right hip (principal); M25.552 Pain in left hip; M25.562 Pain in left knee
CPT/HCPCS: 73522; 73562

== ENCOUNTER 2023-08-14 08:50 | Outpatient (CLI) | payer MEDICAID, SELFPAY ==
--- NOTE | 2023-08-14 08:55 | USCV_ITS ---
Essie Garcia Age: 48 Gender: F : 1975 Exam Date: 08/14/2023 09:06 Ordering Phys: Alexia Maria Technologist: Exam Location: [facility] [place] Indication: HISTORY: rt gasph harvested for cabg PROCEDURES: Bilateral duplex Venous Insufficiency study of the Deep and Superficial systems was carried out according to normal protocol with the patient in supine positon for deep system and dependent position for the superficial system. FINDINGS: All deep veins demonstrated compressibility without evidence of intraluminal thrombus or increased echogenicity. Spectral analysis of Doppler signals demonstrates normal response to compression maneuvers indicating patency without obstruction. Reflux determinations were made with the patient in the dependent position, the weight being on the contralateral leg. no dvt or reflux in either leg . The right gsaph was harvested for cabg, there is a bakkers cyst in the lt pop fossa. Echolucent area, measuring 2.38 x 1.51 x 0.88 cm was noted in the left popliteal fossa. The veins were found to be easily compressible with spontaneous blood flow. CONCLUSIONS No evidence of DVT in the above-mentioned identifiable veins. No significant venous reflux, either in the superficial or in the deep vein, identified above. The greater saphenous vein on the right side was absent, arvested for CABG. Dr Citlaly Jerez MD [facility] (Electronically Signed) Final Date: 15 August 2023 14:26 S
== END 2023-08-14 08:51 | disposition home or self-care (01) ==
PROVIDERS: PCP Nurse Practitioner Family; Visit Provider Nurse Practitioner Family
DX: I83.893 Varicose veins of bilateral lower extremities with other complications (principal)
CPT/HCPCS: 93970

== ENCOUNTER 2023-08-28 06:44 | Outpatient (CLI) | payer MEDICAID, SELFPAY ==
--- NOTE | 2023-08-28 | MR_ITS ---
WS: [id number] MRI LEFT KNEE HISTORY: Pain with no trauma. COMPARISON: LEFT knee radiographs 06/08/2023 Anterior cruciate ligament: Intact. Posterior cruciate ligament: Intact. Medial collateral ligament: MCL is being displaced from the joint line by a complex cystic mass exten ding over a length of 2.7 cm and transversely by 0.8 cm. This mass is contiguous with the medial meni scus and the MCL. Posterior lateral corner structures: Intact. Medial menisci: Fraying along the surfaces of the posterior horn. There is increased T2 signal along the inferior surface extending peripherally. Anterior horn is normal. Lateral meniscus: Abnormal signal involving both the anterior and posterior horn. Anterior horn signa l extends to the inferior tubular surface. Abnormal signal involves the free edge of the posterior ho rn and also the posterior meniscus. Extensor mechanism: Distal quadriceps tendon and patellar tendons are intact. Fluid and soft tissue: Small suprapatellar joint effusion. Large Castellanos cyst. This is a lobulated cyst extending over a length of at least 7 cm. There is internal debris within the cyst but castellanos cyst. Osseous and articular structures: Patellofemoral compartment: Normal. Medial compartment: Very minimal narrowing of the medial compartment. There is mild chondromalacia al radha the weightbearing surface of the femoral condyle and tibial plateau. No marrow edema. Lateral compartment: Mild narrowing of the lateral compartment. Significant loss of cartilage and cho ndromalacia. IMPRESSION: 1. Complex cystic mass measuring 2.7 x 0.8 cm along the medial joint line displacing the MCL. This is likely a meniscal cyst or ganglion. Favor meniscal cyst. 2. Abnormal signal inferior surface medial posterior meniscus. This may be the site of a meniscal tea r resulting in the meniscal cyst. 3. Abnormal signal throughout diffusely throughout the anterior and posterior horns. Complex tears, g reater involving the posterior meniscus. 4. Small suprapatellar joint effusion. 5. Large Castellanos's cyst. 6. Mild narrowing of the medial and lateral compartments. 7. Significant loss of cartilage and chondromalacia involving a large segment of the cartilage in the lateral compartment.
== END 2023-08-28 06:45 | disposition home or self-care (01) ==
LOC: RAD 06:44
PROVIDERS: PCP Nurse Practitioner Family; Visit Provider Nurse Practitioner Family
DX: M25.562 Pain in left knee (principal); M25.362 Other instability, left knee; M71.22 Synovial cyst of popliteal space [Baker], left knee
CPT/HCPCS: 73721

== ENCOUNTER → 2023-08-31 14:32 | Outpatient (BNVA) | payer MEDICAID, SELFPAY | PROVIDERS: PCP Nurse Practitioner Family; Visit Provider Specialist | DX: E66.01 Morbid (severe) obesity due to excess calories; Z68.43 Body mass index [BMI] 50.0-59.9, adult; X58.XXXA Exposure to other specified factors, initial encounter; S89.92XA Unspecified injury of left lower leg, initial encounter | CPT/HCPCS: 73560; 73565 ==

== ENCOUNTER 2023-11-12 07:41 | Outpatient (CLI) | payer MEDICAID, SELFPAY ==
--- NOTE | 2023-11-12 07:48 | US_ITS ---
WS: [id number] US transvaginal [id number] HISTORY: LOWER ABDOMINAL PAIN COMPARISON: None available. Prior hysterectomy. No central pelvic mass or fluid. Right ovary: 2.3 cm x 1.4 cm x 2.6 cm. Normal size and vascularity, no cystic or solid masses. Left ovary: 2.8 cm x 2.0 cm x 3.0 cm. Complex follicle LEFT ovary 2.3 x 2.4 x 1.8 cm. The adjacent ov olu is normal. IMPRESSION: 1. No pelvic mass. Prior hysterectomy. 2. Complex follicle LEFT ovary.
--- NOTE | 2023-11-12 07:48 | US_ITS ---
WS: [id number] Complete ABDOMINAL ULTRASOUND HISTORY: LOWER ABDOMINAL PAIN COMPARISON: 04/23/2018 Liver: 17.7 cm in length. Normal size liver. Mild hepatic steatosis. No mass or bile duct dilatation. Portal Vein: Normal hepatopetal flow with monophasic waveform. Gallbladder: Prior cholecystectomy. CBD: 0.9 cm Pancreas: Partially obscured. Right kidney: 12.0 cm x 5.3 x 4.9 cm. Cortex:1.1 cm. Normal size and echogenicity. No hydronephrosis or mass. Left kidney: 12.8 cm x 5.3 cm x 4.6 cm. Cortex: 1.1 cm. Normal size and echogenicity. No hydronephrosis or mass. Spleen: Normal. Aorta and IVC: Unremarkable abdominal aorta and IVC. Impression: 1. Prior cholecystectomy. 2. No hydronephrosis. 3. Common bile duct is slightly enlarged but this is probably due to the cholecystectomy.
== END 2023-11-12 07:42 | disposition home or self-care (01) ==
LOC: RAD 07:41
PROVIDERS: PCP Nurse Practitioner Family; Visit Provider Nurse Practitioner Family
DX: R10.30 Lower abdominal pain, unspecified (principal); Z90.710 Acquired absence of both cervix and uterus; Z90.49 Acquired absence of other specified parts of digestive tract
CPT/HCPCS: 76700; 76830

== ENCOUNTER → 2023-12-21 13:01 | Outpatient (BNVA) | payer MEDICAID, SELFPAY | PROVIDERS: PCP Nurse Practitioner Family; Visit Provider Nurse Practitioner Family | DX: J06.9 Acute upper respiratory infection, unspecified (principal); R05.9 Cough, unspecified | CPT/HCPCS: 71046; 87400 ==

== ENCOUNTER 2024-01-14 10:46 | Outpatient (CLI) | payer MEDICAID, SELFPAY ==
[2024-01-14 11:03] VITALS: PULSE 54; RESP 20; O2SAT 100
[2024-01-14] MEDS: albuterol 2.5 mg/3 mL Neb INHALATION (11:03)
[2024-01-14 11:07] VITALS: PULSE 55
== END 2024-01-14 10:47 | disposition home or self-care (01) ==
PROVIDERS: PCP Nurse Practitioner Family; Visit Provider Nurse Practitioner Family
DX: J20.9 Acute bronchitis, unspecified (principal); R06.02 Shortness of breath
CPT/HCPCS: 94060; J7613

== ENCOUNTER 2024-06-17 15:03 | Observation (INO) | payer MEDICAID, SELFPAY ==
[2024-06-17] VITALS (15 sets, daily range): BP systolic 117–194; BP diastolic 71–96; PULSE 49–59; RESP 12–19; TEMP 36.6–36.7; O2SAT 96–100; BMI 54.3
--- NOTE | 2024-06-17 15:08 | XR_ITS ---
WS: [id number] XR chest 1V portable [id number] REASON FOR EXAM: chest pain FINDINGS: The chest appears unchanged compared to 12/21/2023. Mild tortuosity of the thoracic aorta. The heart is at the upper limits of normal in size. There is calcified granulomatous disease bilaterally. No acute pulmonary parenchymal or pleural abnormality is identified. XR/XR chest 1V portable [id number] IMPRESSION: Stable chest without acute abnormality.
--- NOTE | 2024-06-17 15:09 | ECG_ITS ---
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 Measurements Intervals [place] Rate: 51 P: 45 TN: 160 QRS: 39 QRSD: 96 T: 58 QT: 454 QTc: 421 Interpretive Statements SINUS BRADYCARDIA Compared to ECG 12/22/2022 13:39:17 No significant changes Electronically Signed On 06-17-2024 15:29:18 CDT by Marquez Woodruff M.D. [id number] f
[2024-06-17 15:19] LABS: Basophils % 0.2 %; Eosinophils % 0.2 %; Hematocrit 46.3 % (36-47); Lymphocytes % 30.5 %; Mean Corpuscular HGB Conc 33.9 g/dL (30-55); Mean Corpuscular Hemoglobin 33.9 pg (27-33); Mean Platelet Volume 11.9 fL (7.4-10.4); Monocytes # 0.6 10^3/uL (0.2-0.9); Monocytes % 8.5 %; Neutrophils # 3.99 10^3/uL (1.8-7.7); Neutrophils % 60.1 %; Nucleated Red Blood Cells % 0 %; Platelet Count 107 10^3/cmm (157-399); Red Blood Count 4.63 10^6/uL (3.85-5.65); Red Cell Distribution Width 13.3 % (12.1-15.1); White Blood Count 6.62 10^3/uL (3.29-11.43)
--- NOTE | 2024-06-17 15:21 | ED_ITS ---
HPI - Chest Pain 2 General: Chief Complaint: Chest Pain Stated Complaint: angina Time Seen by Provider: 06/17/24 15:08 History of Present Illness: 49-year-old female with a history of cor onary disease previous bypass and stenting her most recent intervention with a bypass in 2019 that was done in [place]. Patient describes chest pain that began yesterday morning worse with activity better with rest and relieved also by nitro. She does currently take aspirin she is not on any anticoagulants she is also on ranolazine 1000 mg twice daily she has not missed any of her medications or had any recent dose changes. No stress test or evaluation since 2019 of the high she presents emergency room she is not having any chest pain. Associated symptoms: Deny abdominal pain, dyspnea or fever(s) Related Data Home Medications Medication Instructions Recorded Confirmed pramipexole 0.5 mg tablet 0.5 mg PO DAILY PRN Restless Leg(S) 04/04/22 06/17/24 albuterol sulfate 90 mcg/actuation 2 puff inhalation QID PRN 12/22/22 06/17/24 aerosol inhaler (Ventolin HFA) Shortness Of Breath omeprazole 40 mg capsule,delayed 40 mg PO BEDTIME 12/22/22 06/17/24 release ranolazine 1,000 mg 1,000 mg PO Q12H 12/22/22 06/17/24 tablet,extended release,12 hr levothyroxine 150 mcg tablet 175 mcg PO DAILY 03/04/23 06/17/24 tizanidine 4 mg capsule 4 mg PO DAILY 09/29/23 06/17/24 celecoxib 100 mg capsule (Celebrex) 100 mg PO DAILY 12/17/23 06/17/24 gabapentin 100 mg capsule 900 mg PO .HS 02/23/24 06/17/24 metoprolol succinate 25 mg 50 mg PO DAILY 02/23/24 06/17/24 tablet,extended release 24 hr budesonide-formoterol HFA 160 1 puff inhalation BID PRN short of 05/31/24 06/17/24 mcg-4.5 mcg/actuation aerosol breath inhaler (Symbicort) ezetimibe 10 mg tablet 10 mg PO BEDTIME 06/17/24 06/17/24 Previous Rx's Medication Instructions Recorded aspirin 81 mg tablet,delayed 162 mg (2 x 81 mg) PO DAILY #60 12/22/22 release tabs escitalopram oxalate 20 mg tablet 20 mg PO DAILY #30 tabs 05/09/24 (Lexapro) alprazolam 0.25 mg tablet (Xanax) 0.25 mg PO DAILY PRN anxiety #15 05/31/24 tabs aripiprazole 2 mg tablet (Abilify) 2 mg PO DAILY #30 tabs 05/31/24 lisinopril 10 mg tablet 10 mg PO DAILY #30 tabs 06/18/24 Allergies Allergy/AdvReac Type Severity Reaction Status Date / Time codeine Allergy Unknown Unknown Verified 06/17/24 15:17 Review of Systems 2 Const: Denies: fever(s) or chills Card: Reports: chest pain; Denies: edema or swelling of feet/ankles Resp: Denies: dyspnea GI: Denies: abdominal pain : Denies: dysuria, urinary frequency or urinary urgency Musc: Denies: neck pain or back pain Skin/Breast: Denies: rash PFSH ED 2 PFSH: Medical History Unstable angina Obesity, morbid, BMI 50 or higher Unstable angina Panic disorder Generalized anxiety disorder Nicotine use disorder Psychiatric care Anxiety GERD (gastroesophageal reflux disease) Hypothyroidism Coronary artery disease Surgical History History of cholecystectomy History of tonsillectomy History of tubal ligation History of hysterectomy History of coronary artery bypass graft Family History Other CAD (coronary artery disease) Stroke Social History Smoking and tobacco/nicotine status: current every day tobacco/nicotine user Alcohol intake: never Physical Exam 2 Const: GENERAL APPEARANCE: cooperative ORIENTATION/CONSCIOUSNESS: Yes awake, Yes oriented to person, Yes oriented to place and Yes oriented to time HENMT: COMMON NORMALS: normocephalic, atraumatic and hearing grossly normal bilaterally HEAD & SCALP: normocephalic and atraumatic Resp: COMMON NORMALS: normal respiratory effort, No retractions, No use of accessory muscles and clear to auscultation bilaterally AUSCULTATION: clear to auscultation bilaterally Cardio: COMMON NORMALS: regular rate, regular rhythm and No murmurs present (Cardio) RATE: regular rate RHYTHM: regular rhythm GI: COMMON NORMALS: Soft to palpation and No hepatosplenomegaly present A USCULTATION: Yes normoactive bowel sounds PALPATION: Yes Soft to palpation, No Tenderness to palpation present (GI), No Guarding due to palpation present (GI) and Yes No hepatosplenomegaly present Extremity: COMMON NORMALS: normal to inspection, capillary refill normal, no clubbing, cyanosis or edema, no calf tenderness and no pedal edema Neuro: SENSORIUM/ORIENTATION: Yes oriented to person, Yes oriented to place and Yes oriented to time Skin: COMMON NORMALS: no rashes or lesions noted GENERAL SKIN EXAM: no rashes or lesions noted Course 2 Vital Signs: Vital signs: Vital Signs Temperature 97.7 F 06/18/24 12:03 Pulse Rate 51 L 06/18/24 15:17 Respiratory Rate 19 H 06/18/24 12:03 Blood Pressure 166/76 06/18/24 15:17 Pulse Oximetry 92 06/18/24 12:03 Oxygen Delivery Me thod Room Air 06/18/24 12:03 MDM - Chest Pain Medical Decision Making 49-year-old female with known coronary artery disease presenting with chest pain exacerbated by activity relieved by rest and nitroglycerin. Given her known coronary artery disease and age and presenting symptoms will admit for further evaluation by cardiology. Lab Data 06/18/24 03:49 06/18/24 03:49 Radiology Impressions Chest X-Ray 06/17/24 15:08 IMPRESSION: Stable chest without acute abnormality. Laboratory Results WBC 6.62 10^3/uL (3.29-11.43) 06/17/24 14:35 RBC 4.63 10^6/uL (3.85-5.65) 06/17/24 14:35 Hgb 15.70 g/dL (11.27-16.99) 06/17/24 14:35 Hct 46.3 % (36-47) 06/17/24 14:35 MCV 100.0 fl (85-98) H 06/17/24 14:35 MCH 33.9 pg (27-33) H 06/17/24 14:35 MCHC 33.9 g/dL (30-55) 06/17/24 14:35 RDW 13.3 % (12.1-15.1) 06/17/24 14:35 Plt Count 107 10^3/cmm (157-399) L 06/17/24 14:35 MPV 11.9 fL (7.4-10.4) H 06/17/24 14:35 Neut % (Auto) 60.1 % 06/17/24 14:35 Lymph % (Auto) 30.5 % 06/17/24 14:35 [place]aver % (Auto) 8.5 % 06/17/24 14:35 Eos % (Auto) 0.2 % 06/17/24 14:35 Baso % (Auto) 0.2 % 06/17/24 14:35 Neut # (Auto) 3.99 10^3/uL (1.8-7.7) 06/17/24 14:35 Lymph # (Auto) 2.0 10^3/uL (0.8-4.8) 06/17/24 14:35 [place] # (Auto) 0.6 10^3/uL (0.2-0.9) 06/17/24 14:35 Eos # (Auto) 0.0 10^3/uL (0.0-0.8) 06/17/24 14:35 Baso # (Auto) 0.0 10^3/uL (0.0-0.1) 06/17/24 14:35 Nucleated RBC % (auto) 0 % 06/17/24 14:35 Nucleated RBCs # 0.0 /100WBC 06/17/24 14:35 D-Dimer 1.63 ug/mLFEU (0-0.59) H 06/17/24 14:35 Sodium 137 mmol/L (136-145) 06/17/24 14:35 Potassium 4.5 mmol/L (3.5-5.1) 06/17/24 14:35 Chloride 102 mmol/L (98-107) 06/17/24 14:35 Carbon Dioxide 23 mmol/L (22-29) 06/17/24 14:35 Anion Gap 16.5 (5-19) 06/17/24 14:35 BUN 12 mg/dL (6-20) 06/17/24 14:35 Creatinine 1.0 mg/dL (0.5-0.9) H 06/17/24 14:35 GFR Calculation 58.9 mL/min (90-130) L 06/17/24 14:35 Glucose 85 mg/dL (65-115) 06/17/24 14:35 Estimat Average Glucose 117 06/17/24 14:35 Hemoglobin A1c 5.7 % (4.0-6.0) 06/17/24 14:35 Calculated Osmolality 283 mOsm/kg (285-295) L 06/17/24 14:35 Calcium 9.2 mg/dL (8.5-10.5) 06/17/24 14:35 Total Bilirubin 0.5 mg/dL (0.15-1.2) 06/17/24 14:35 AST 51 U/L (0-32) H 06/17/24 14:35 ALT 51 U/L (0-33) H 06/17/24 14:35 Alkaline Phosphatase 119 U/L (35-105) H 06/17/24 14:35 Troponin T Baseline 7 ng/L (0-10) 06/17/24 14:35 Troponin T 120 Minute 6.79 ng/L (0-10) 06/17/24 16:36 Delta Troponin T -0.21 ABS# (0-10) L 06/17/24 16:36 Total Protein 7.3 g/dL (6.6-8.7) 06/17/24 14:35 Albumin 3.8 g/dL (3.5-5.2) 06/17/24 14:35 Globulin 3.5 g/dL (1.3-4.6) 06/17/24 14:35 Vitamin B12 534 pg/mL (232-1245) 06/17/24 14:35 All radiology interpretation(s) finalized by discharge Discharge Plan Discharge Patient Disposition: Admitted As Inpatient Admit Provider: Uma Agarwal Clinical Impression: Unstable angina pectoris, History of coronary artery disease Condition: Stable Coding Level of Care Code ED [employer] Dipper for Carrie Melchor
[2024-06-17 15:39] LABS: Troponin(5th) Baseline 7 ng/L (0-10)
[2024-06-17 15:41] LABS: Alanine Aminotransferase 51 U/L (0-33); Albumin Level 3.8 g/dL (3.5-5.2); Alkaline Phosphatase 119 U/L (35-105); Anion Gap 16.5 (5-19); Aspartate Amino Transferase 51 U/L (0-32); Blood Urea Nitrogen 12 mg/dL (6-20); Calcium 9.2 mg/dL (8.5-10.5); Carbon Dioxide 23 mmol/L (22-29); Chloride 102 mmol/L (98-107); Creatinine Clr Calc Pharmacy 103.9116; Globulin 3.5 g/dL (1.3-4.6); Glomerular Filtration Rate 58.9 mL/min (90-130); Glucose 85 mg/dL (65-115); Osmolality Calculated 283 mOsm/kg (285-295); Potassium 4.5 mmol/L (3.5-5.1); Sodium 137 mmol/L (136-145); Total Bilirubin 0.5 mg/dL (0.15-1.2); Total Protein 7.3 g/dL (6.6-8.7)
[2024-06-17 17:05] LABS: Troponin 5 2HR 6.79 ng/L (0-10)
[2024-06-17 17:08] LABS: Troponin 5 2HR Delta -0.21 ABS# (0-10)
--- NOTE | 2024-06-17 17:08 | ECG_ITS ---
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 Measurements Intervals [place] Rate: 58 P: 61 KS: 176 QRS: 37 QRSD: 94 T: 55 QT: 439 QTc: 434 Interpretive Statements SINUS BRADYCARDIA Compared to ECG 06/17/2024 15:09:24 No significant changes Electronically Signed On 06-17-2024 18:37:35 CDT by Marquez Woodruff M.D. [email or web address] davis community hospitalFreedom Scientific Holdings, LLCmercy health st. anne hospitalFunzio/store/OM/[id number]
[2024-06-17] MEDS: enoxaparin 150 mg/mL Syringe SUBCUT (17:16)
[2024-06-17] MEDS: nitroglycerin 1 gm/inch oint Pkt 1 INCH TOPICAL (17:16)
--- NOTE | 2024-06-17 18:37 | P.HP_ITS ---
Providers/Chief Complaint 2 Admitting Physician: Uma Agarwal MD Primary Care Provider: JEAN Bess Chief Complaint: angina History of Present Illness Essie Garcia is a 49 year old female with history of coronary disease status post stenting RCA, status post CABG 2019 presented with chief complaint of chest pain. Patient stating that her symptoms of chest pain started yesterday afternoon, she has been experiencing chest pain which is burning sensation, pressure-like sensation radiating towards her left arm associated with nausea no diaphoresis or shortness of breath, they would last until she will take nitroglycerin. Today her asked her to come to the hospital. She is smoking 1 pack/day, does not drink alcohol. Compliant with her medications. No history of hiatal hernia or GERD. In the ER EKG is not showing any sign of ischemia infarction, troponin is flat, she will probably will need an angiogram considering her typical unstable angina will call cardiology Review of Systems 2 Const: Denies: fever(s) Eyes: Denies: change in vision ENMT: Denies: throat pain Card: Reports: chest pain Resp: Denies: dyspnea GI: Denies: abdominal pain : Denies: flank pain Musc: Denies: neck pain Skin/Breast: Denies: rash Medications/Allergies Home Medications Medication Instructions Recorded Confirmed Last Taken Type pramipexole 0.5 mg tablet 0.5 mg PO DAILY PRN Restless Leg(S) 04/04/22 05/31/24 Unknown History Articulating AFO to left #1 ea 05/02/22 05/31/24 Unknown Rx albuterol sulfate 90 mcg/actuation 2 puff inhalation QID PRN 12/22/22 05/31/24 Unknown History aerosol inhaler (Ventolin HFA) Shortness Of Breath aspirin 81 mg tablet,delayed 162 mg (2 x 81 mg) PO DAILY #60 12/22/22 05/31/24 Unknown Rx release tabs omeprazole 40 mg capsule,delayed 40 mg PO BEDTIME 12/22/22 05/31/24 12/21/22 History release ranolazine 1,000 mg 1,000 mg PO Q12H 12/22/22 05/31/24 12/22/22 History tablet,extended release,12 hr ezetimibe 10 mg-atorvastatin 10 mg 1 tab PO DAILY 03/04/23 05/31/24 Unknown History tablet levothyroxine 150 mcg tablet 175 mcg PO DAILY 03/04/23 05/31/24 Unknown History cyproheptadine 4 mg tablet 8 mg (2 x 4 mg) PO DAILY #30 tabs 06/02/23 05/31/24 Unknown Rx HINGED KNEE BRACE #1 ea 08/31/23 05/31/24 Unknown Rx tizanidine 4 mg capsule 4 mg PO DAILY 09/29/23 05/31/24 Unknown History celecoxib 100 mg capsule (Celebrex) 100 mg PO DAILY 12/17/23 05/31/24 Unknown History magnesium oxide 250 mg PO DAILY 12/17/23 05/31/24 Unknown History gabapentin 100 mg capsule 900 mg PO .HS 02/23/24 05/31/24 Unknown History metoprolol succinate 25 mg 50 mg PO DAILY 02/23/24 05/31/24 Unknown History tablet,extended release 24 hr escitalopram oxalate 20 mg tablet 20 mg PO DAILY #30 tabs 05/09/24 05/31/24 Unknown Rx (Lexapro) alprazolam 0.25 mg tablet (Xanax) 0.25 mg PO DAILY PRN anxiety #15 05/31/24 05/31/24 Unknown Rx tabs aripiprazole 2 mg tablet (Abilify) 2 mg PO DAILY #30 tabs 05/31/24 05/31/24 Unknown Rx budesonide-formoterol HFA 160 1 puff inhalation BID 05/31/24 05/31/24 Unknown History mcg-4.5 mcg/actuation aerosol inhaler (Symbicort) Allergies Allergy/AdvReac Type Severity Reaction Status Date / Time codeine Allergy Unknown Unknown Verified 06/17/24 15:17 PFSH Acute 2 PFSH: Medical History (Updated 06/17/24 @ 18:40 by Uma Agarwal MD) Unstable angina Panic disorder Generalized anxiety disorder Nicotine use disorder Psychiatric care Anxiety GERD (gastroesophageal reflux disease) Hypothyroidism Coronary artery disease Surgical History History of cholecystectomy History of tonsillectomy History of tubal ligation History of hysterectomy History of coronary artery bypass graft Family History Other CAD (coronary artery disease) Stroke Social History Smoking and tobacco/nicotine status: current every day tobacco/nicotine user Alcohol intake: never Vitals/I&O/Wt Last Vital Signs Temp 97.9 F 06/17/24 15:04 Pulse 51 L 06/17/24 18:30 Resp 12 06/17/24 18:30 BP 153/91 06/17/24 18:30 Pulse Ox 98 06/17/24 18:30 O2 Del Method Room Air 06/17/24 15:04 Weight last 48 hrs Weight 152.861 kg Physical Exam 2 Narrative: Patient is awake and alert Currently on Nitropaste on Hemodynamically stable Heart rate around 50s Blood pressure stable No active chest pain Complaining of burning sensation Abdomen distended nontender Lower extremity lymphedema at the bedside S1, S2 Data 06/17/24 14:35 06/17/24 14:35 A&P Assessment and plan (1) Hypothyroidism: (2) Obesity, morbid, BMI 50 or higher: (3) Nicotine use disorder: (4) Unstable angina: Plan Unstable angina Patient will need an angiogram Considering history of CABG and coronary disease Currently has Nitropaste on Complaining of burning sensation Hemodynamically stable heart rate is 50s Patient is stating that her last it was an RCA and it was bypassed during CABG I will keep her n.p.o. after midnight Will call cardiology Dr. Pena Will request echo Trend serial troponin with EKGs Request D-dimer Patient has been counseled on smoking cessation Full code Continue levothyroxine I would also discontinue celecoxib which should not be on board DVT prophylaxis: Lovenox Attestations 2 Medical Necessity Statement*: More than 2 midnights anticipated Diagnoses Hypothyroidism E03.9 Obesity, morbid, BMI 50 or higher E66.01 Nicotine use disorder F17.200 Unstable angina I20.0
[2024-06-17 19:05] LABS: D Dimer 1.63 ug/mLFEU (0-0.59)
[2024-06-17] MEDS: nitroglycerin 1 gm/inch oint Pkt 0.5 INCH TOPICAL ×2 (19:32→23:58)
[2024-06-17 20:00] LABS: Vitamin B12 534 pg/mL (232-1245)
[2024-06-17 20:35] LABS: Estmated Average Glucose 117; Hemoglobin A1C 5.7 % (4.0-6.0)
--- NOTE | 2024-06-17 21:30 | ECG_ITS ---
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 Measurements Intervals [place] Rate: 55 P: 49 MS: 157 QRS: 36 QRSD: 98 T: 66 QT: 441 QTc: 422 Interpretive Statements SINUS BRADYCARDIA Compared to ECG 06/17/2024 17:20:59 No significant changes Electronically Signed On 06-18-2024 8:00:34 CDT by Marquez Woodruff M.D. [email or web address] [email or web address] clinic hillcrest hospitalVisualDNA/store/OM/[id number]
--- NOTE | 2024-06-17 22:13 | P.CONIM_ITS ---
Providers/Reason For Consult 2 Consulting Physician/Specialty*: Dr. Agarwal Reason for Consult*: Chest pain Requesting Physician: Dr. Agarwal Attending Physician: Uma Agarwal MD Primary Care Provider: JEAN Bess History of Present Illness History of Present Illness Essie Garcia is a 49 year old female Past medical history significant Coronary disease history of CABG x 2 prior stent presented with chest pain worsening of shortness of breath increasing frequency and duration suggestive of unstable angina. Review of Systems 2 Const: Denies: fever(s) or chills Eyes: Denies: change in vision ENMT: Denies: throat pain Card: Reports: chest pain Resp: Denies: dyspnea GI: Denies: abdominal pain : Denies: flank pain, dysuria, urinary frequency or urinary urgency Musc: Denies: neck pain, back pain or joint warmth Skin/Breast: Denies: rash Medications/Allergies Home Medications Medication Instructions Recorded Confirmed Last Taken Type pramipexole 0.5 mg tablet 0.5 mg PO DAILY PRN Restless Leg(S) 04/04/22 06/17/24 06/16/24 History albuterol sulfate 90 mcg/actuation 2 puff inhalation QID PRN 12/22/22 06/17/24 Unknown History aerosol inhaler (Ventolin HFA) Shortness Of Breath aspirin 81 mg tablet,delayed 162 mg (2 x 81 mg) PO DAILY #60 12/22/22 06/17/24 Unknown Rx release tabs omeprazole 40 mg capsule,delayed 40 mg PO BEDTIME 12/22/22 06/17/24 06/16/24 History release ranolazine 1,000 mg 1,000 mg PO Q12H 12/22/22 06/17/24 06/17/24 History tablet,extended release,12 hr levothyroxine 150 mcg tablet 175 mcg PO DAILY 03/04/23 06/17/24 06/17/24 History tizanidine 4 mg capsule 4 mg PO DAILY 09/29/23 06/17/24 06/16/24 History celecoxib 100 mg capsule (Celebrex) 100 mg PO DAILY 12/17/23 06/17/24 06/17/24 History gabapentin 100 mg capsule 900 mg PO .HS 02/23/24 06/17/24 06/16/24 History metoprolol succinate 25 mg 50 mg PO DAILY 02/23/24 06/17/24 06/16/24 History tablet,extended release 24 hr escitalopram oxalate 20 mg tablet 20 mg PO DAILY #30 tabs 05/09/24 06/17/24 06/16/24 Rx (Lexapro) alprazolam 0.25 mg tablet (Xanax) 0.25 mg PO DAILY PRN anxiety #15 05/31/24 06/17/24 06/16/24 Rx tabs aripiprazole 2 mg tablet (Abilify) 2 mg PO DAILY #30 tabs 05/31/24 06/17/24 06/16/24 18:00 Rx budesonide-formoterol HFA 160 1 puff inhalation BID PRN short of 05/31/24 06/17/24 Unknown History mcg-4.5 mcg/actuation aerosol breath inhaler (Symbicort) ezetimibe 10 mg tablet 10 mg PO BEDTIME 06/17/24 06/17/24 06/16/24 History lisinopril 10 mg tablet 10 mg PO DAILY #30 tabs 06/18/24 Unknown Rx Allergies Allergy/AdvReac Type Severity Reaction Status Date / Time codeine Allergy Unknown Unknown Verified 06/17/24 15:17 Current Medications Generic Name Dose Route Start Last Admin Trade Name Freq PRN Reason Stop Dose Admin Nitroglycerin 0.5 inch 06/17/24 18:55 06/17/24 19:32 Nitroglycerin 1 Gm/Inch Oint Pkt TOPICAL 0.5 inch Q6H PAPITO Administration PFSH Acute 2 PFSH: Medical History (Updated 06/17/24 @ 18:40 by Uma Agarwal MD) Unstable angina Panic disorder Generalized anxiety disorder Nicotine use disorder Psychiatric care Anxiety GERD (gastroesophageal reflux disease) Hypothyroidism Coronary artery disease Surgical History History of cholecystectomy History of tonsillectomy History of tubal ligation History of hysterectomy History of coronary artery bypass graft Family History Other CAD (coronary artery disease) Stroke Social History Smoking and tobacco/nicotine status: current every day tobacco/nicotine user Alcohol intake: never Vitals/I&O/Wt Last Vital Signs Temp 98.0 F 06/17/24 19:05 Pulse 53 L 06/17/24 19:55 Resp 18 06/17/24 19:55 BP 136/85 06/17/24 19:55 Pulse Ox 97 06/17/24 19:55 O2 Del Method Room Air 06/17/24 19:55 Weight last 48 hrs Weight 337 lb Weight 337 lb Physical Exam 2 Narrative: Alert awake oriented x 3 heart regular S1-S2 lungs clear to auscultate bilaterally SOUND ASSISTANT nonfocal Data 06/18/24 03:49 06/18/24 03:49 A&P Assessment and plan (1) Unstable angina: Worsening of chest pain with increased frequency and duration suggestive of unstable angina. Will monitor her on telemetry and proceed with left heart catheterization in the morning. In case of recurrence of chest pain please start patient on heparin. She will be ruled out for acute coronary syndrome. Continue home medications including aspirin statin beta-london (2) Obesity, morbid, BMI 50 or higher: Advise losing weight (3) Coronary artery disease: History of CABG and PCI now with chest pain suggestive of possible unstable angina. Coding Level of Care Code Acute Code for [facility] Fwd Diagnoses Unstable angina I20.0 Obesity, morbid, BMI 50 or higher E66.01 Coronary artery disease I25.10
[2024-06-18 04:00] VITALS: BP 147/85; PULSE 58; RESP 20; TEMP 36.6; O2SAT 98
[2024-06-18] MEDS: acetaminophen 500 mg Tablet PO (04:19)
[2024-06-18 05:11] LABS: Basophils % 0.2 %; Eosinophils % 0.2 %; Hematocrit 43.8 % (36-47); Lymphocytes # 1.5 10^3/uL (0.8-4.8); Lymphocytes % 31.7 %; Mean Corpuscular HGB Conc 32.9 g/dL (30-55); Mean Corpuscular Hemoglobin 33.5 pg (27-33); Mean Corpuscular Volume 101.9 fl (85-98); Mean Platelet Volume 11.8 fL (7.4-10.4); Monocytes # 0.6 10^3/uL (0.2-0.9); Monocytes % 11.9 %; Neutrophils # 2.58 10^3/uL (1.8-7.7); Neutrophils % 55.8 %; Nucleated Red Blood Cells % 0 %; Platelet Count 96 10^3/cmm (157-399); Red Cell Distribution Width 13.4 % (12.1-15.1); White Blood Count 4.63 10^3/uL (3.29-11.43)
[2024-06-18 05:22] VITALS: PULSE 69
[2024-06-18 05:33] LABS: Anion Gap 13.8 (5-19); Blood Urea Nitrogen 11 mg/dL (6-20); Carbon Dioxide 25 mmol/L (22-29); Chloride 106 mmol/L (98-107); Creatinine Clr Calc Pharmacy 95.2624; Glomerular Filtration Rate 52.8 mL/min (90-130); Glucose 170 mg/dL (65-115); Magnesium 1.9 mg/dL (1.7-2.3); Osmolality Calculated 295 mOsm/kg (285-295); Potassium 3.8 mmol/L (3.5-5.1); Sodium 141 mmol/L (136-145)
[2024-06-18] MEDS: nitroglycerin 1 gm/inch oint Pkt 0.5 INCH TOPICAL ×2 (06:05→13:19)
--- NOTE | 2024-06-18 07:33 | P.PN_ITS ---
Subjective 2 Subjective: Patient is stating that she had little bit of discomfort which got better with nitroglycerin paste She is n.p.o. awaiting angiogram between 8 and 9 AM No active chest pain at the time of evaluation in the morning D-dimer is 1.6 I would not do CTA because she is planned for an angiogram to avoid double dose of contrast Vitals/I&O/Wt Last Vital Signs Temp 97.9 F 06/18/24 04:00 Pulse 69 06/18/24 05:22 Resp 20 H 06/18/24 04:00 BP 147/85 06/18/24 04:00 Pulse Ox 98 06/18/24 04:00 O2 Del Method Room Air 06/18/24 04:00 06/17/24 06/18/24 06/18/24 22:59 06:59 14:59 Intake Total 30 / 30 Balance 30 / 30 Weight last 48 hrs Weight 154.902 kg Weight 152.861 kg Weight 152.861 kg Physical Exam 2 Narrative: Pleasant cooperative Euvolemic Lymphedema S1, S2 Currently hemodynamically stable Nitropaste has been applied on her chest Currently on room air Hemodynamically stable No active chest pain Morbidly obese is at the bedside Strong nicotine smell in the room Data 06/18/24 03:49 06/18/24 03:49 A&P Assessment and plan (1) Unstable angina: Plan Unstable angina Considering typical symptoms patient will go for angiogram today She also has high D-dimer will need CTA chest likely on 06/19 to rule out PE Monitor kidney function, she may need gentle fluid hydration to avoid contrast- induced nephropathy Patient is an active smoker Hypertensive Previous history of coronary disease with CABG B12 level is normal Troponin without significant elevation but her symptoms are typical Appreciate cardiology recommendations Full code N.p.o. for angiogram today She will have cardiac diet after her angiogram Patient did not meet criteria to start ACS protocol currently she is on DVT prophylactic regimen and aspirin low-dose Attestations 2 Medical Necessity Statement*: She may be able to go home in next 24 hours final decision will be made after her angiogram report Diagnoses Unstable angina I20.0
[2024-06-18 07:44] VITALS: BP 123/71; PULSE 56; RESP 22; TEMP 36.8; O2SAT 99
--- NOTE | 2024-06-18 08:06 | XACV_ITS ---
Exam Room: [facility] Ht: 168 cm Wt: 155 kg BSA: 2.78 m2 Gender: Female : 1975 Any Known Allergies: Codeine Exam Priority: Routine Procedure(s): Procedure Description: Diagnostic procedure Procedure Description: Left Heart Catheterization Procedure Description: Left ventriculography Procedure Description: Venous Graft Catheterization Procedure Description: VIVAS Graft Catheterization Procedure Description: Miscellaneous Procedure Description: Angio-[facility]al [facility] Status: Urgent Conclusions 1. a. 2. Left main: Normal, LAD has diffuse luminal irregularities with 20 to 30% stenosis which is not significant, and diagonal branch is free of disease without significant stenosis, left circumflex is subtotally occluded with BAKARI I flow, RCA is known to be occluded in the mid segment. 3. Grafts: VIVAS was not used, SVG to obtuse marginal supplying circumflex is patent, SVG to RCA is patent. 4. Left ventricle end-diastolic pressure is normal, left ventricle ejection fraction is normal 55 to 60%. Diagnostic RX Recommendation: medical therapy and/or counseling Ventriculography Ejection Fraction: 55.0 % Pressures Phase:Rest AO : 119 / 76 ( 96 ) @ 10:13:00 AM 106 / 90 ( 90 ) @ 10:14:00 AM 117 / 76 ( 98 ) @ 10:19:00 AM 107 / 39 ( 60 ) @ 10:32:00 AM 112 / 40 ( 66 ) @ 10:32:00 AM LV : 128 / -11 / 14 @ 10:31:00 AM 123 / -2 / 12 @ 10:32:00 AM 127 / 6 / 15 @ 10:32:00 AM Valves Phase:DefaultPhase AV : 8.0 @ 9:48:07 AM AV Mean Gradient: 22.0 @ 9:48:07 AM 22.0 @ 9:48:07 AM Clinical Evaluation EBL: 5mL-10mL Procedural Details Pre-Procedure Time Out. Identified patient by full name and date of as verbalized by the patient/guarantor. Does the consent match the physician's order: Yes. Accurate & Complete Informed Consent: Yes. Inpatient/Outpatient History & Physical on Chart: Yes. If H&P is completed, is and addenduem needed: No; If yes, is the addendum complete: N/A. Visualize and Verify Site with Patient/Guarantor: N/A. Relevant Radiology Images available: Yes. Pre-op teaching completed and patient verbalized understanding. The risks, benefits, and alternatives of sedation and/or procedure were discussed by physician. The patient agrees to continue. Procedure started. [facility] Clinical Fraility Score: 3: Managing Well. Multimedia Programmer Indications: ACS > 24 hours. Chest Pain Symptom Assessment: Atypical Angina. Correct patient, site and procedure confirmed by cath team. Current diagnosis: NSTEMI. PERRLA. Strong, equal hand technical maintenance technician bilaterally. Lungs clear x 5 lobes. IV Site on Arrival: 20 gauge in the left anticubital. Current Diagnosis : NSTEMI. Physician arrived. IV Fluids: 0.9% NaCl at KVO. 0 mL infused prior to home performance laborer. Oxygen started at 2liters/min via nasal canula. bilateral groins was prepped with chloroprep then draped in the usual sterile fashion. Baseline sample Acquired. HR: 55 BPM. Physician scrubbed in. Immediate Pre-Procedure Time Out. Correct Patient: Yes; Correct Procedure: Yes; Correct Site: Yes; Correct Patient Position: Yes; Correct Supplies: Yes; Dried Flammable Prep: Yes; Blood Products Available: N/A;. Lidocaine 1% infiltrated to the right groin. Arterial access obtained with micropuncture set. Wire unable to advance. Wire and needle out. Manual pressure held on access site. Arterial access obtained with micropuncture set. A 5 swedish JL4 catheter in over wire. Multiple views taken of left coronary artery. Catheter out. Catheter removed over the standard wire. A 5 swedish JR4 catheter in over wire. Multiple views taken of right coronary artery. SVG's to Circumflex visualized and patent. SVG's to RCA visualized and patent. VIVAS to LAD visualized. Physician review of cine films. Catheter removed over the standard wire. A 5 swedish Angled Pig catheter in over wire. EDP Sample taken: LV 128/-12,14; HR: 60 BPM; SpO2: 99%. LV gram performed in PUENTE @ 10 mL/second for a total of 30 mL. EDP Sample taken: LV 123/-3,12; HR: 60 BPM; SpO2: 98%. Pullback taken: LV 127/6,15; AO 107/39(60); Mean: 22mmHg, Peak to Peak: 8mmHg, SEP: 20sec/min; HR: 64 BPM; SpO2: 98%. Catheter removed over the standard wire. A Right femoral angiogram was performed to determine safe placement of closure device. Lidocaine 1% infiltrated to the right groin. A Angio-Seal VIP ([facility]) was successful obtaining hemostatsis at the Right Femoral artery insertion site. Post Procedure: Pulses reassessed and unchanged. PERRLA. Strong, equal hand technical maintenance technician bilaterally. No VTE prophylaxis required. Medication's Wasted: Lidocaine 1% = 12 mL. Medication's Wasted: Heparin = 1000 units. Medication's Wasted: Other = Fentanyl 75mcg Versed 1 mg. Total IV fluids: 100 mL. Complications: None. Estimated blood loss: 5mL-10mL. Responsiveness - Normal response to verbal stimuli; alert and oriented, PERRLA. Airway - Unaffected, no intervention required; spontaneous ventilation. Circulation: W/N/L, pulses unchanged. Nausea/Vomiting: No. Procedure completed. Vital chart was stopped. Patient transferred by bed to 1st floor. Access Site Site: Right Femoral artery Sheath Size: 6 Fr Hemostasis Method: Angio-Seal VIP ([facility]) Hemostasis Success: Successful Complication Findings: None. Procedure Medications Start: 8:35 AM Stop: 8:35 AM Medication: Benadryl Amount: 50 mg Route: I.V. Start: 8:43 AM Stop: 8:43 AM Medication: Versed Amount: 1 mg Route: I.V. Start: 8:43 AM Stop: 8:43 AM Medication: Fentanyl Amount: 50 mcg Route: I.V. Start: 8:51 AM Stop: 8:51 AM Medication: Versed 1 mg and Fentanyl 25 mcg Amount: 1 Route: I.V. Start: 9:06 AM Stop: 9:06 AM Medication: Fentanyl Amount: 25 mcg Route: I.V. Start: 9:16 AM Stop: 9:16 AM Medication: Versed 1 mg and Fentanyl 25 mcg Amount: 1 Route: I.V. I, the attending physician, have reviewed and verified all procedure medications. Yes, all medications given per verbal order History/Risk Factors Hypertension: No Dyslipidemia: No Peripheral Arterial Disease (PAD): No Myocardial Infarction (IA): Yes Obesity: Yes Renal Disease: No Tobacco Use: Current/Recent(w/in 1 year) Prior Interventions PCI: Yes CABG: Yes Valve Surgery: No Report Signatures Finalized by Uma Walker MD on 06/18/2024 10:26 AM
--- NOTE | 2024-06-18 08:44 | W.PM.OPSUD ---
Surgery/Procedure H&P Update DATE OF PROCEDURE: June 18, 2024 DATE H&P PERFORMED: 06/18/24 PRIMARY INDICATION FOR PROCEDURE: Unstable angina PATIENT REASSESSED PRIOR TO SEDATION, WITH NO CHANGE NOTED: Yes PHYSICAL EXAM: alert, oriented x 3, clear to auscultation bilaterally, regular rate & rhythm and operative site marked AIRWAY EVAL/ANESTHESIA PLAN: normal airway, ASA III, Risks, benefits & alternatives of sedation and/or procedure discussed and Patient agrees to continue as planned ADDITIONAL INFORMATION: Pepe Malone
[2024-06-18] MEDS: sodium chloride 0.9% 1,000 ML 75 ML IV (10:03)
[2024-06-18] MEDS: pantoprazole 40 mg SDV IVP (10:03)
[2024-06-18] MEDS: ARIPiprazole 2 mg Tablet PO (10:46)
[2024-06-18] MEDS: escitalopram 10 mg Tablet 20 MG PO (10:46)
[2024-06-18] MEDS: levothyroxine 175 mcg Tablet PO (10:46)
[2024-06-18] MEDS: tizanidine 4 mg Tablet PO (10:46)
[2024-06-18] MEDS: aspirin 81 mg EC Tablet 162 MG PO (10:46)
[2024-06-18 12:03] VITALS: BP 111/67; PULSE 57; RESP 19; TEMP 36.5; O2SAT 92
[2024-06-18 13:19] VITALS: BP 166/76; PULSE 51
--- NOTE | 2024-06-18 13:21 | P.DS_ITS ---
Discharge Providers Date of Admission: 06/17/24 18:25 Date of Discharge: June 18, 2024 Attending Provider at Admission: Uma Agarwal MD Attending Provider at Discharge: Uma Agarwal MD Primary Care Provider: JEAN Bess Diagnoses at Discharge Discharge Diagnosis (1) Unstable angina: Status: Inactive Reason for Visit Reason for Visit: angina Hospital Course Hospital Course 49-year-old female with history of coronary disease presented with typical chest pain unstable angina, EKG and troponins were unremarkable however cardiology was consulted for an angiogram because of her typical symptoms. Patient went for angiogram which was unremarkable.atient underwent left heart catheterization noted to have patent saphenous venous graft to RCA and SVG to circumflex. Left main and LAD has luminal irregularities without significant obstructive disease. VIVAS was not attached. Left ventricular ejection fraction is normal 60%. Patient did not experience any chest pain during hospitalization, she was discharged after her angiogram with stable hemodynamics. For her hypertension lisinopril was called in and along isosorbide. Physical Exam Narrative: Awake and alert nonfocal neuroexam Euvolemic GCS 15 Discharge Data Studies Completed and Pending Completed Studies During Hospitalization Category Date Time Status ASSISTANT ACCOUNTING MANAGER request for service Routine Exams 06/18/24 08:06 Completed XR chest 1V portable [id number] Stat Exams 06/17/24 15:08 Completed Pending at discharge Category Date Time Status CTA PE [CT angio chest PE protcl [id number]] Routine Cat Scan 06/19/24 08:00 Ordered Basic Metabolic Panel AM LABS Lab 06/19/24 04:00 Ordered Complete Blood Count w/Auto AM LABS Lab 06/19/24 04:00 Ordered CV. echo complete* [id number] Routine Ultrasound 06/18/24 18:55 Ordered Radiology Impressions Chest X-Ray 06/17/24 15:08 IMPRESSION: Stable chest without acute abnormality. Laboratory Results WBC 4.63 10^3/uL (3.29-11.43) 06/18/24 03:49 RBC 4.30 10^6/uL (3.85-5.65) 06/18/24 03:49 Hgb 14.40 g/dL (11.27-16.99) 06/18/24 03:49 Hct 43.8 % (36-47) 06/18/24 03:49 MCV 101.9 fl (85-98) H 06/18/24 03:49 MCH 33.5 pg (27-33) H 06/18/24 03:49 MCHC 32.9 g/dL (30-55) 06/18/24 03:49 RDW 13.4 % (12.1-15.1) 06/18/24 03:49 Plt Count 96 10^3/cmm (157-399) L 06/18/24 03:49 MPV 11.8 fL (7.4-10.4) H 06/18/24 03:49 Neut % (Auto) 55.8 % 06/18/24 03:49 Lymph % (Auto) 31.7 % 06/18/24 03:49 Keith % (Auto) 11.9 % 06/18/24 03:49 Eos % (Auto) 0.2 % 06/18/24 03:49 Baso % (Auto) 0.2 % 06/18/24 03:49 Neut # (Auto) 2.58 10^3/uL (1.8-7.7) 06/18/24 03:49 Lymph # (Auto) 1.5 10^3/uL (0.8-4.8) 06/18/24 03:49 Keith # (Auto) 0.6 10^3/uL (0.2-0.9) 06/18/24 03:49 Eos # (Auto) 0.0 10^3/uL (0.0-0.8) 06/18/24 03:49 Baso # (Auto) 0.0 10^3/uL (0.0-0.1) 06/18/24 03:49 Nucleated RBC % (auto) 0 % 06/18/24 03:49 Nucleated RBCs # 0.0 /100WBC 06/18/24 03:49 D-Dimer 1.63 ug/mLFEU (0-0.59) H 06/17/24 14:35 Sodium 141 mmol/L (136-145) 06/18/24 03:49 Potassium 3.8 mmol/L (3.5-5.1) 06/18/24 03:49 Chloride 106 mmol/L (98-107) 06/18/24 03:49 Carbon Dioxide 25 mmol/L (22-29) 06/18/24 03:49 Anion Gap 13.8 (5-19) 06/18/24 03:49 BUN 11 mg/dL (6-20) 06/18/24 03:49 Creatinine 1.1 mg/dL (0.5-0.9) H 06/18/24 03:49 GFR Calculation 52.8 mL/min (90-130) L 06/18/24 03:49 Glucose 170 mg/dL (65-115) H 06/18/24 03:49 Estimat Average Glucose 117 06/17/24 14:35 Hemoglobin A1c 5.7 % (4.0-6.0) 06/17/24 14:35 Calculated Osmolality 295 mOsm/kg (285-295) 06/18/24 03:49 Calcium 9.0 mg/dL (8.5-10.5) 06/18/24 03:49 Magnesium 1.9 mg/dL (1.7-2.3) 06/18/24 03:49 Total Bilirubin 0.5 mg/dL (0.15-1.2) 06/17/24 14:35 AST 51 U/L (0-32) H 06/17/24 14:35 ALT 51 U/L (0-33) H 06/17/24 14:35 Alkaline Phosphatase 119 U/L (35-105) H 06/17/24 14:35 Troponin T Baseline 7 ng/L (0-10) 06/17/24 14:35 Troponin T 120 Minute 6.79 ng/L (0-10) 06/17/24 16:36 Delta Troponin T -0.21 ABS# (0-10) L 06/17/24 16:36 Troponin T Hi Sens 6Hr 8.20 ng/L (0-10) 06/17/24 20:18 Troponin T Hi Sens 6Hr Delta 1.20 ng/L (0-12) 06/17/24 20:18 Total Protein 7.3 g/dL (6.6-8.7) 06/17/24 14:35 Albumin 3.8 g/dL (3.5-5.2) 06/17/24 14:35 Globulin 3.5 g/dL (1.3-4.6) 06/17/24 14:35 Vitamin B12 534 pg/mL (232-1245) 06/17/24 14:35 Vitals Last Vital Signs Temp 97.7 F 06/18/24 12:03 Pulse 51 L 06/18/24 13:19 Resp 19 H 06/18/24 12:03 BP 166/76 06/18/24 13:19 Pulse Ox 92 06/18/24 12:03 O2 Del Method Room Air 06/18/24 12:03 Discharge Plan Discharge Patient Disposition: Home Condition: Stable Prescriptions: New lisinopril 10 mg tablet 10 mg PO DAILY Qty: 30 3RF Continued tizanidine 4 mg capsule 4 mg PO DAILY budesonide-formoterol [Symbicort] 160-4.5 mcg/actuation HFA aerosol inhaler 1 puff inhalation BID PRN (Reason: short of breath ) aripiprazole [Abilify] 2 mg tablet 2 mg PO DAILY Qty: 30 2RF alprazolam [Xanax] 0.25 mg tablet 0.25 mg PO DAILY PRN (Reason: anxiety) Qty: 15 0RF pramipexole 0.5 mg tablet 0.5 mg PO DAILY PRN (Reason: Restless Leg(S)) levothyroxine 150 mcg tablet 175 mcg PO DAILY gabapentin 100 mg capsule 900 mg PO .HS celecoxib [Celebrex] 100 mg capsule 100 mg PO DAILY metoprolol succinate 25 mg tablet extended release 24 hr 50 mg PO DAILY escitalopram oxalate [Lexapro] 20 mg tablet 20 mg PO DAILY Qty: 30 2RF omeprazole 40 mg capsule,delayed release(DR/EC) 40 mg PO BEDTIME albuterol sulfate [Ventolin HFA] 90 mcg/actuation Hfa Aerosol Inhaler 2 puff INHALATION QID PRN (Reason: Shortness Of Breath) ranolazine 1,000 mg tablet extended release 12 hr 1,000 mg PO Q12H aspirin 81 mg Tablet,Delayed Release (Dr/Ec) 162 mg PO DAILY Qty: 60 0RF ezetimibe 10 mg tablet 10 mg PO BEDTIME Discharge Orders: Discharge Order (Routine); Ordered 06/18/24 Ordered By: Uma Agarwal Referrals: Alexia Maria FNP [Primary Care Provider] - (Please call your primary animal care assistant and schedule an appointment within 1 week. ) Patient Instructions: Lisinopril (By mouth), How to Stop Smoking (DC), Cigarette Smoking and Your Health (GEN), Opioid Safety, Post Angiogram Home Care Instructions Discharge Attestations Time Spent in Discharge Care*: greater than 30 min Quality Metrics Clinical Quality Measures [ No reported AMI, CVA or VTE this stay] Coding Level of Care Code Acute Code for [facility]g Fwd Diagnoses Unstable angina I20.0
--- NOTE | 2024-06-18 14:59 | PM.PN ---
Subjective Subjective: Patient underwent left heart catheterization noted to have patent saphenous venous graft to RCA and SVG to circumflex. Left main and LAD has luminal irregularities without significant obstructive disease. VIVAS was not attached. Left ventricular ejection fraction is normal 60%. Medications: Medication Review Details: Currently denies chest pain Vitals/I&O/Wt Last Vital Signs Temp 97.7 F 06/18/24 12:03 Pulse 51 L 06/18/24 13:19 Resp 19 H 06/18/24 12:03 BP 166/76 06/18/24 13:19 Pulse Ox 92 06/18/24 12:03 O2 Del Method Room Air 06/18/24 12:03 06/17/24 06/18/24 06/18/24 22:59 06:59 14:59 Intake Total 30 / 30 Balance 30 / 30 Weight last 48 hrs Weight 341 lb 8 oz Weight 337 lb Weight 337 lb Physical Exam Narrative: Alert awake oriented x 3 heart regular S1-S2 lungs clear to auscultate bilaterally WATER SUPPLY TECHNICIAN nonfocal Const: COMMON NORMALS: alert Resp: COMMON NORMALS: clear to auscultation bilaterally AUSCULTATION: clear to auscultation bilaterally Neuro: SENSORIUM/ORIENTATION: Yes alert Data 06/18/24 03:49 06/18/24 03:49 A&P Assessment and plan (1) Unstable angina: Patient underwent left heart catheterization noted to have patent previously placed graft and no new obstructive coronary artery disease most likely chest pain is not of coronary origin or due to small vessel disease therefore advise adding isosorbide mononitrate and PPI. Continue home medication including aspirin statin beta-london. Advised quitting smoking. After completing bedrest patient can be discharged home (2) Obesity, morbid, BMI 50 or higher: Advise losing weight (3) Coronary artery disease: History of CABG patent both grafts. No new obstructive disease noted Attestations Medical Necessity Statement*: Patient can be discharged today Coding Level of Care Code Acute Code for Chg Fwd Diagnoses Unstable angina I20.0 Obesity, morbid, BMI 50 or higher E66.01 Coronary artery disease I25.10
[2024-06-18 15:17] VITALS: BP 166/76; PULSE 51
--- NOTE | 2024-06-18 15:23 | PC.NURSE ---
Patient took all belongings with her that were at bedside. In the comment box it is stated that she had xanax and nitro here. This nurse was unaware of this and patient did not report that she had medication with her.
== END 2024-06-18 15:25 | disposition home or self-care (01) ==
LOC: ER 15:23 → CSU 18:35
PROVIDERS: Internal Medicine Cardiovascular Disease; Admitting Provider Internal Medicine; Emergency Provider Family Medicine; PCP Nurse Practitioner Family; Visit Provider Internal Medicine
DX: I25.110 Atherosclerotic heart disease of native coronary artery with unstable angina pectoris (principal); E66.01 Morbid (severe) obesity due to excess calories; Z68.43 Body mass index [BMI] 50.0-59.9, adult; Z95.1 Presence of aortocoronary bypass graft; I25.2 Old myocardial infarction; Z95.5 Presence of coronary angioplasty implant and graft; Z82.49 Family history of ischemic heart disease and other diseases of the circulatory system; Z79.82 Long term (current) use of aspirin; E03.9 Hypothyroidism, unspecified
CPT/HCPCS: 36415; 71045; 80048; 80053; 82607; 83036; 83735; 84484; 85025; 85378; 93005; 93459; 96372; 96374; 96375; 99152; 99153; 99285; C1760; C1769; C1887; C1894; G0269; G0378; J1200; J1644; J1650; J2250; J2470; J3010; J7030; Q9967

== ENCOUNTER 2024-06-27 12:21 | Outpatient (CLI) | payer MEDICAID, SELFPAY ==
--- NOTE | 2024-06-27 12:15 | CT_ITS ---
WS: [id number] CTA THORACIC TECHNIQUE: Contrast enhanced CTA of the thoracic aorta with coronal and sagittal reformatted images a nd maximum intensity projection (MIP) images. CLINICAL INFORMATION: chest pain' high dimer COMPARISON: CTA 2019 DLP: 502.[address] scans at [facility] use at least one of these dose optimization techniques: automated e xposure control; mA and/or kV adjustment per patient size (includes targeted exams where dose is matc hed to clinical indication); or iterative reconstruction. FINDINGS: Cardiomegaly. Sternotomy. Shallow inspiration. Prior cholecystectomy. Hepatomegaly. Small esophageal hiatal hernia. Fluid distended stomach. Adrenal glands are normal. Proximal main pulmonary arteries are normal. Normal segmental and subsegmental pulmonary arteries. No evidence of pulmonary embolus. Hazy atelectasis in the lung bases. No acute pulmonary infiltrates. N o axillary lymphadenopathy. No mediastinal or hilar lymphadenopathy. Prominent main pulmonary artery can be seen with pulmonary arterial hypertension. CT/CT angio chest [id number] IMPRESSION: 1. No evidence of pulmonary embolus. 2. Shallow inspiration with slight hazy atelectasis in the lung bases. No foca l pneumonia. 3. Cardiomegaly with prior sternotomy. 4. Small esophageal hiatal hernia.
[2024-06-27] MEDS: iohexol 350 mg/mL 500 mL Btl (per mL) IV (13:00)
== END 2024-06-27 12:22 | disposition home or self-care (01) ==
LOC: RAD 12:21
PROVIDERS: PCP Nurse Practitioner Family; Visit Provider Internal Medicine
DX: I20.0 Unstable angina (principal); R79.1 Abnormal coagulation profile; I51.7 Cardiomegaly; R16.0 Hepatomegaly, not elsewhere classified; Z90.49 Acquired absence of other specified parts of digestive tract; I27.20 Pulmonary hypertension, unspecified
CPT/HCPCS: 71275; Q9967

== ENCOUNTER 2024-09-16 08:34 | Outpatient (CLI) | payer MEDICAID, SELFPAY ==
--- NOTE | 2024-09-16 08:47 | USCV_ITS ---
Essie Garcia Age: 49 Gender: F : 1975 Exam Date: 09/16/2024 09:03 Ordering Phys: Alexia Maria Technologist: TATA Exam Location: [facility] [place] Indication: HISTORY: PROCEDURES: FINDINGS: The veins were found to be easily compressible with spontaneous blood flow. Non pulsatile flow pattern. 6 venous reflux of was noted at the below-knee segment of the greater saphenous vein on the left side with the reflux time of 1.95 seconds. The venous diameter was 0.39 cm at a depth of 1.38 cm. CONCLUSIONS 1. No evidence of any deep vein or superficial vein thrombosis in the above-mentioned identifiable veins. 2. Significant reflux venous reflux was noted in the below-knee segment of the greater saphenous vein on the left side. The reflux time, venous diameter and depth from the surface were 1.95, 0.39 and 1.38 respectively. 3. No significant venous reflux on the left side 4. No significant reflux in the deep veins Dr Citlaly Jerez MD [facility] (Electronically Signed) Final Date: 19 September 2024 09:03 S
== END 2024-09-16 08:35 | disposition home or self-care (01) ==
LOC: RAD 08:34
PROVIDERS: PCP Nurse Practitioner Family; Visit Provider Nurse Practitioner Family
DX: I83.812 Varicose veins of left lower extremity with pain (principal)
CPT/HCPCS: 93970

== ENCOUNTER 2024-11-14 08:14 | Inpatient (IN) | payer MEDICAID, SELFPAY ==
[2024-11-14] VITALS (25 sets, daily range): BP systolic 100–143; BP diastolic 40–80; PULSE 64–90; RESP 16–30; TEMP 36.1–36.6; O2SAT 88–99; BMI 54.8; BMI 54.1
--- NOTE | 2024-11-14 09:14 | CT_ITS ---
WS: [id number] CT PELVIS NONCONTRAST HISTORY: bartholin abscess/significant surrounding edema TECHNIQUE: Contiguous imaging is performed of the pelvis without contrast. Coronal and sagittal refor mats are reviewed. All CT scans at [facility] use at least one of these dose optimization mookie hniques: automated exposure control; mA and/or kV adjustment per patient size (includes targeted exam s where dose is matched to clinical indication); or iterative reconstruction. DLP: 1101.05 mGy.cm COMPARISON: 03/02/2017 Soft tissue inflammation with stranding and soft tissue gas is noted involving the RIGHT perineum. Th ere is soft tissue stranding beginning over the mons pubis and extending along the RIGHT perineum. Th ere is air infiltrating through the soft tissues and slight mass effect due to edema in the midline s tructures. There is no focal well organized collection or mass. Scattered calcification in the lower abdominal aorta into the iliac arteries. No free fluid or adenop athy within the pelvis. Prior hysterectomy. Uterus is not identified. Ovaries are small caliber and n oted. No large cysts. CT/CT pelvis w con* [id number] IMPRESSION: 1. Findings consistent with necrotizing fasciitis involving the RIGHT perineum . Extension of the fatty infiltration of the infection over the mons pubis. 2. No focal well formed abscess. Notified RODDY Valenzuela at 11/14/2024 10:41 AM.
--- NOTE | 2024-11-14 09:15 | W.ED.SKABFB ---
Documented by User: RODDY Valenzuela 11/14/24 12:38 HPI - Skin/Abscess/Foreign Bdy General: Chief complaint: General Medical Stated complaint: swelling in private areas Time Seen by Provider: 11/14/24 08:30 Source: patient Mode of arrival: ambulatory Limitations: no limitations History of Present Illness: Patient is a 49-year-old female who presents to ED today with a complaint of swelling, pain, infection to her genitalia region. Patient states she began noticing symptoms approximately 2 to 3 days ago. She states she has had cysts to the area before but never required intervention/drainage. Patient states over the weekend she ran fevers as high as 103. Today she complains of chills and diarrhea. Patient was seen recently and placed on azithromycin for bronchitis . She states she has also been on steroids (prednisone) by Dr. Sprague for her eye. She states she is not a diagnosed diabetic but has been checking her blood sugars and they have ran as high as 500-600. Patient has not had any drainage from her perineal region but feels like infection is spreading down into my butt cheeks . MD complaint: abscess/boil Onset (ago): day(s) Tetanus up to date: yes Location: genitals Severity: severe Severity scale (1-10): 10 Pain Consistency: constant Relieving factors: none Exacerbating factors: other (walking, clothes rubbing, etc) Context: none Associated symptoms: Reports chills, fever(s) and nausea; Deny vomiting Treatments prior to arrival: none Related Data Home Medications Medication Instructions Recorded Confirmed pramipexole 0.5 mg tablet 0.5 mg PO DAILY PRN Restless Leg(S) 04/04/22 11/14/24 ranolazine 1,000 mg 1,000 mg PO Q12H 12/22/22 11/14/24 tablet,extended release,12 hr celecoxib 100 mg capsule (Celebrex) 100 mg PO DAILY 12/17/23 11/14/24 ezetimibe 10 mg tablet 10 mg PO BEDTIME 06/17/24 11/14/24 evolocumab 140 mg/mL subcutaneous 140 mg SUBCUT Q14D 08/01/24 11/14/24 pen injector (Savage Kaur) budesonide-formoterol HFA 160 2 puff inhalation BID 08/29/24 11/14/24 mcg-4.5 mcg/actuation aerosol inhaler (Symbicort) furosemide 40 mg tablet (Lasix) 40 mg PO DAILY 08/29/24 11/14/24 omeprazole 40 mg capsule,delayed 40 mg PO BID 08/29/24 11/14/24 release sucralfate 1 gram tablet 1 g PO .4 times daily 08/29/24 11/14/24 isosorbide mononitrate 60 mg 120 mg PO DAILY 09/30/24 11/14/24 tablet,extended release 24 hr levothyroxine 150 mcg tablet 150 mcg PO DAILY 11/14/24 11/14/24 metoprolol succinate 50 mg 50 mg PO DAILY 11/14/24 11/14/24 tablet,extended release 24 hr triamcinolone acetonide 0.5 % 1 applic topical BID 11/14/24 11/14/24 topical ointment Previous Rx's Medication Instructions Recorded lisinopril 10 mg tablet 10 mg PO DAILY #30 tabs 06/18/24 alprazolam 0.25 mg tablet (Xanax) 0.25 mg PO DAILY PRN anxiety #15 08/09/24 tabs aripiprazole 2 mg tablet (Abilify) 2 mg PO DAILY #30 tabs 10/28/24 varenicline 1 mg tablet (Chantix 1 mg PO BID #56 tabs 10/28/24 Continuing Month Box) venlafaxine 75 mg capsule,extended 75 mg PO DAILY #30 caps 11/10/24 release 24 hr (Effexor XR) Allergies Allergy/AdvReac Type Severity Reaction Status Date / Time codeine Allergy Unknown Unknown Verified 10/28/24 08:30 Review of Systems Const: Reports: fever(s), chills and change in appetite; Denies: body aches, fatigue or malaise Card: Denies: chest pain Resp: Denies: dyspnea GI: Reports: nausea and diarrhea; Denies: abdominal pain or vomiting : Reports: other (perineal/vulvar abscess); Denies: flank pain, difficulty voiding, dysuria, urinary frequency, urinary urgency, urinary hesitancy or hematuria Musc: Denies: neck pain, back pain, extremity pain, extremity swelling, joint pain or joint swelling Neuro: Denies: headache(s) or dizziness PFSH ED PFSH: Medical History Nicotine use disorder History of coronary artery disease Unstable angina pectoris Unstable angina Obesity, morbid, BMI 50 or higher Unstable angina Panic disorder Generalized anxiety disorder Psychiatric care Anxiety GERD (gastroesophageal reflux disease) Hypothyroidism Coronary artery disease Surgical History History of cholecystectomy History of tonsillectomy History of tubal ligation History of hysterectomy History of coronary artery bypass graft Family History Other CAD (coronary artery disease) Stroke Social History Smoking and tobacco/nicotine status: current every day tobacco/nicotine user Alcohol intake: never Physical Exam Const: COMMON NORMALS: no acute distress, patient oriented x3, no limitations, alert and well nourished GENERAL APPEARANCE: cooperative NUTRITIONAL APPEARANCE: obese morbidly obese (BMI 54.9) ORIENTATION/CONSCIOUSNESS: Yes awake, Yes oriented to person, Yes oriented to place and Yes oriented to time Resp: COMMON NORMALS: normal respiratory effort and clear to auscultation bilaterally AUSCULTATION: clear to auscultation bilaterally Cardio: COMMON NORMALS: regular rate and regular rhythm RATE: regular rate RHYTHM: regular rhythm GI: COMMON NORMALS: Normal to inspection, nondistended, normoactive bowel sounds present, Soft to palpation and non-tender PALPATION: Yes Soft to palpation : COMMON NORMALS: Yes no CVA tenderness BLADDER/KIDNEY EXAM: Yes no CVA tenderness OTHER: extremely large abscess to R Bartholin gland with significant surrounding induration extending onto mons pubis and inferiorly; no drainage Back/Pelvis: COMMON NORMALS: no CVA tenderness Extremity: GENERAL: Yes normal exam except as noted Neuro: COMMON NORMALS: patient oriented x3 SENSORIUM/ORIENTATION: Yes alert, Yes oriented to person, Yes oriented to place and Yes oriented to time Course Consultations: Consultation #1: Dr. Hurd-has consulted on patient here in ED; plan will be for OR later today Consultation #2: Dr. Santos-also consulted on patient in ED; feels this is more of a DRAMA TEACHER case but is happy to assist Dr. Hurd if necessary; he and Dr. Hurd consulted together here in the ED regarding case Consultation #3: Dr. Andrews-will admit patient Vital Signs: Vital signs: Vital Signs Temperature 97.0 F L 11/14/24 15:11 Pulse Rate 79 11/14/24 15:16 Respiratory Rate 18 11/14/24 15:16 Blood Pressure 109/59 11/14/24 15:16 Pulse Oximetry 96 11/14/24 15:16 Oxygen Delivery Me thod Room Air 11/14/24 15:11 Oxygen Flow Rate 2 11/14/24 14:45 MDM - Skin/Abscess/Foreign Bdy Medicial Decision Making Patient is a 49-year-old female here for concerns of infection involving her right perineal region/right labia. Clinically she has a very large right Bartholin abscess with surrounding erythema and induration. CT imaging obtained showing necrotizing fasciitis involving her right perineum. Both Dr. Hurd, DRAMA TEACHER and Dr. Topete, general surgery have consulted on patient here in the emergency department. Her vital signs are stable. She does have a white count of 24.47. Some of this may be steroid induced as she was just on a taper from Dr. 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 Her lactate is normal. Blood sugars of 313. Pseudohyponatremia. Her ketones are negative. Minor elevations to LFTs. She has had some of these previously. She does not have a gallbladder. She is not having any right upper quadrant pain or tenderness to palpation. UA questionable for UTI she has positive nitrates, 11-20 WBCs, and 4+ bacteria. I have spoken to Dr. Andrews who will admit patient. Dr. Hurd will plan on taking to the OR later today. She was given fluids here, blood cultures obtained, and started on Vanc/Zosyn. Medical Records I reviewed the patient's medical records. Lab Data I reviewed the patient's lab results. 11/14/24 09:32 11/14/24 09:[address] 11/14/24 09:14 IMPRESSION: 1. Findings consistent with necrotizing fasciitis involving the RIGHT perineum. Extension of the fatty infiltration of the infection over the mons pubis. 2. No focal well formed abscess. Notified RODDY Valenzuela at 11/14/2024 10:41 AM. Chest X-Ray 11/14/24 09:55 IMPRESSION: Unremarkable portable chest. Laboratory Results WBC 24.47 10^3/uL (3.29-11.43) H 11/14/24 09:32 RBC 5.09 10^6/uL (3.85-5.65) 11/14/24 09:32 Hgb 16.60 g/dL (11.27-16.99) 11/14/24 09:32 Hct 48.8 % (36-47) H 11/14/24 09:32 MCV 95.9 fl (85-98) 11/14/24 09:32 MCH 32.6 pg (27-33) 11/14/24 09:32 MCHC 34.0 g/dL (30-55) 11/14/24 09:32 RDW 13.2 % (12.1-15.1) 11/14/24 09:32 Plt Count 126 10^3/cmm (157-399) L 11/14/24 09:32 MPV 11.1 fL (7.4-10.4) H 11/14/24 09:32 Neut % (Auto) 80.7 % 11/14/24 09:32 Lymph % (Auto) 13.4 % 11/14/24 09:32 Mathews % (Auto) 4.6 % 11/14/24 09:32 Eos % (Auto) 0.1 % 11/14/24 09:32 Baso % (Auto) 0.2 % 11/14/24 09:32 Neut # (Auto) 19.74 10^3/uL (1.8-7.7) H 11/14/24 09:32 Lymph # (Auto) 3.3 10^3/uL (0.8-4.8) 11/14/24 09:32 Mathews # (Auto) 1.1 10^3/uL (0.2-0.9) H 11/14/24 09:32 Eos # (Auto) 0.0 10^3/uL (0.0-0.8) 11/14/24 09:32 Baso # (Auto) 0.1 10^3/uL (0.0-0.1) 11/14/24 09:32 Nucleated RBC % (auto) 0 % 11/14/24 09:32 Nucleated RBCs # 0.0 /100WBC 11/14/24 09:32 Sodium 128 mmol/L (136-145) L 11/14/24 09:32 Potassium 4.5 mmol/L (3.5-5.1) 11/14/24 09:32 Chloride 90 mmol/L (98-107) L 11/14/24 09:32 Carbon Dioxide 26 mmol/L (22-29) 11/14/24 09:32 Anion Gap 16.5 (5-19) 11/14/24 09:32 BUN 19 mg/dL (6-20) 11/14/24 09:32 Creatinine 1.8 mg/dL (0.5-0.9) H 11/14/24 09:32 GFR Calculation 29.9 mL/min (90-130) L 11/14/24 09:32 Glucose 313 mg/dL (65-115) H 11/14/24 09:32 Estimat Average Glucose 183 11/14/24 09:32 Hemoglobin A1c 8.0 % (4.0-6.0) H 11/14/24 09:32 Calculated Osmolality 280 mOsm/kg (285-295) L 11/14/24 09:32 Lactic Acid 1.7 mmol/L (0.5-2.2) 11/14/24 09:32 Calcium 9.7 mg/dL (8.5-10.5) 11/14/24 09:32 Total Bilirubin 1.4 mg/dL (0.15-1.2) H 11/14/24 09:32 AST 25 U/L (0-32) 11/14/24 09:32 ALT 57 U/L (0-33) H 11/14/24 09:32 Alkaline Phosphatase 161 U/L (35-105) H 11/14/24 09:32 Total Protein 7.4 g/dL (6.6-8.7) 11/14/24 09:32 Albumin 3.4 g/dL (3.5-5.2) L 11/14/24 09:32 Globulin 4.0 g/dL (1.3-4.6) 11/14/24 09:32 Triglycerides 147 mg/dL (0-150) 11/14/24 09:32 Cholesterol 159 mg/dL (0-200) 11/14/24 09:32 LDL Cholesterol, Calc 90 mg/dL (50-129) 11/14/24 09:32 HDL Cholesterol 40 mg/dL (60-100) L 11/14/24 09:32 LDL/HDL Ratio 2.25 RATIO (0.00-3.22) 11/14/24 09:32 Cholesterol/HDL Ratio 3.98 mg/dL (0.0-4.40) 11/14/24 09:32 TSH 5.84 uIU/mL (0.27-4.20) H 11/14/24 09:32 Urine Color Dark yellow (Yellow) A 11/14/24 10:34 Urine Appearance Clear (CLEAR) 11/14/24 10:34 Urine pH 5.5 (5-7) 11/14/24 10:34 Ur Specific A[place]o 1.021 (1.005-1.030) 11/14/24 10:34 Urine Protein 1+ (Negative) A 11/14/24 10:34 Urine Glucose (UA) 3+ (Normal) H 11/14/24 10:34 Urine Ketones Negative (Negative) 11/14/24 10:34 Urine Blood Negative (Negative) 11/14/24 10:34 Urine Nitrate Positive (Negative) A 11/14/24 10:34 Urine Bilirubin Negative (Negative) 11/14/24 10:34 Urine Urobilinogen 1.0 mg/dL (Negative) 11/14/24 10:34 Ur Leukocyte Esterase Negative (Negative) 11/14/24 10:34 Urine RBC 0-2 /hpf (0-2) 11/14/24 10:34 Urine WBC 11-20 /hpf (0-5) H 11/14/24 10:34 Ur Squamous Epith Cells 0-5 /hpf (0-5) 11/14/24 10:34 Amorphous Sediment Not Reportable 11/14/24 10:34 Urine Bacteria 4+ /hpf (NONE) H 11/14/24 10:34 Hyaline Casts 1.65 /lpf 11/14/24 10:34 Serum Ketones Negative (Negative) 11/14/24 09:32 Adenovirus (PCR) Not detected (NOT DETECT) 11/14/24 09:37 C. pneumoniae DNA (PCR) Not detected (NOT DETECT) 11/14/24 09:37 Coronavirus (PCR) Cancelled 11/14/24 09:37 Coronavirus 229E (PCR) Not detected (NOT DETECT) 11/14/24 09:37 Human Metapneumovir PCR Not detected (NOT DETECT) 11/14/24 09:37 Influenza A (H1) PCR Not detected (NOT DETECT) 11/14/24 09:37 Influenza A (PCR) Cancelled 11/14/24 09:37 Influ A (H1/09) PCR Not detected (NOT DETECT) 11/14/24 09:37 Influenza A (H3) PCR Not detected (NOT DETECT) 11/14/24 09:37 Influenza Type A (PCR) Not detected (NOT DETECT) 11/14/24 09:37 Influenza Type B (PCR) Cancelled 11/14/24 09:37 Influenza Type B (PCR) Not detected (NOT DETECT) 11/14/24 09:37 M. pneumoniae (PCR) Not detected (NOT DETECT) 11/14/24 09:37 Parainfluenza 1 (PCR) Not detected (NOT DETECT) 11/14/24 09:37 Parainfluenza 2 (PCR) Not detected (NOT DETECT) 11/14/24 09:37 Parainfluenza 3 (PCR) Not detected (NOT DETECT) 11/14/24 09:37 Parainfluenza 4 (PCR) Not detected (NOT DETECT) 11/14/24 09:37 RSV (PCR) Cancelled 11/14/24 09:37 RSV Type A (PCR) Not detected (NOT DETECT) 11/14/24 09:37 RSV Type B (PCR) Not detected (NOT DETECT) 11/14/24 09:37 Entero/Rhino (PCR) Not detected (NOT DETECT) 11/14/24 09:37 SARS-CoV-2 (PCR) Not detected (NOT DETECT) 11/14/24 09:37 All radiology interpretation(s) finalized by discharge Discharge Plan Discharge Patient Disposition: Admitted As Inpatient Admit Provider: Lashay Andrews Clinical Impression: Necrotizing fasciitis, Hyperglycemia Condition: Stable Coding Level of Care Code ED Detailer Furniture for Chg Fwd Documented by User: Wilder Thomas DO 11/14/24 15:55 HPI - Skin/Abscess/Foreign Bdy General: Chief complaint: General Medical Stated complaint: swelling in private areas Time Seen by Provider: 11/14/24 08:30 Related Data Home Medications Medication Instructions Recorded Confirmed pramipexole 0.5 mg tablet 0.5 mg PO DAILY PRN Restless Leg(S) 04/04/22 11/14/24 ranolazine 1,000 mg 1,000 mg PO Q12H 12/22/22 11/14/24 tablet,extended release,12 hr celecoxib 100 mg capsule (Celebrex) 100 mg PO DAILY 12/17/23 11/14/24 ezetimibe 10 mg tablet 10 mg PO BEDTIME 06/17/24 11/14/24 evolocumab 140 mg/mL subcutaneous 140 mg SUBCUT Q14D 08/01/24 11/14/24 pen injector (Savage Kaur) budesonide-formoterol HFA 160 2 puff inhalation BID 08/29/24 11/14/24 mcg-4.5 mcg/actuation aerosol inhaler (Symbicort) furosemide 40 mg tablet (Lasix) 40 mg PO DAILY 08/29/24 11/14/24 omeprazole 40 mg capsule,delayed 40 mg PO BID 08/29/24 11/14/24 release sucralfate 1 gram tablet 1 g PO .4 times daily 08/29/24 11/14/24 isosorbide mononitrate 60 mg 120 mg PO DAILY 09/30/24 11/14/24 tablet,extended release 24 hr levothyroxine 150 mcg tablet 150 mcg PO DAILY 11/14/24 11/14/24 metoprolol succinate 50 mg 50 mg PO DAILY 11/14/24 11/14/24 tablet,extended release 24 hr triamcinolone acetonide 0.5 % 1 applic topical BID 11/14/24 11/14/24 topical ointment Previous Rx's Medication Instructions Recorded lisinopril 10 mg tablet 10 mg PO DAILY #30 tabs 06/18/24 alprazolam 0.25 mg tablet (Xanax) 0.25 mg PO DAILY PRN anxiety #15 08/09/24 tabs aripiprazole 2 mg tablet (Abilify) 2 mg PO DAILY #30 tabs 10/28/24 varenicline 1 mg tablet (Chantix 1 mg PO BID #56 tabs 10/28/24 Continuing Month Box) venlafaxine 75 mg capsule,extended 75 mg PO DAILY #30 caps 11/10/24 release 24 hr (Effexor XR) Allergies Allergy/AdvReac Type Severity Reaction Status Date / Time codeine Allergy Unknown Unknown Verified 10/28/24 08:30 [facility] ED PFSH: Medical History Nicotine use disorder History of coronary artery disease Unstable angina pectoris Unstable angina Obesity, morbid, BMI 50 or higher Unstable angina Panic disorder Generalized anxiety disorder Psychiatric care Anxiety GERD (gastroesophageal reflux disease) Hypothyroidism Coronary artery disease Surgical History History of cholecystectomy History of tonsillectomy History of tubal ligation History of hysterectomy History of coronary artery bypass graft Family History Other CAD (coronary artery disease) Stroke Social History Smoking and tobacco/nicotine status: current every day tobacco/nicotine user Alcohol intake: never Course Vital Signs: Vital signs: Vital Signs Temperature 97.0 F L 11/14/24 15:11 Pulse Rate 79 11/14/24 15:16 Respiratory Rate 18 11/14/24 15:16 Blood Pressure 109/59 11/14/24 15:16 Pulse Oximetry 96 11/14/24 15:16 Oxygen Delivery Me thod Room Air 11/14/24 15:11 Oxygen Flow Rate 2 11/14/24 14:45 MDM - Skin/Abscess/Foreign Bdy Medicial Decision Making Patient is a 49-year-old female here for concerns of infection involving her right perineal region/right labia. Clinically she has a very large right Bartholin abscess with surrounding erythema and induration. CT imaging obtained showing necrotizing fasciitis involving her right perineum. Both Dr. Hurd, DRAMA TEACHER and Dr. Topete, general surgery have consulted on patient here in the emergency department. Her vital signs are stable. She does have a white count of 24.47. Some of this may be steroid induced as she was just on a taper from Dr. 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 Her lactate is normal. Blood sugars of 313. Pseudohyponatremia. Her ketones are negative. Minor elevations to LFTs. She has had some of these previously. She does not have a gallbladder. She is not having any right upper quadrant pain or tenderness to palpation. UA questionable for UTI she has positive nitrates, 11-20 WBCs, and 4+ bacteria. I have spoken to Dr. Andrews who will admit patient. Dr. Hurd will plan on taking to the OR later today. She was given fluids here, blood cultures obtained, and started on Vanc/Zosyn. Chart reviewed and patient discussed with midlevel. Agree with assessment and plan. Lab Data 11/14/24 09:32 11/14/24 09:[address] 11/14/24 09:14 IMPRESSION: 1. Findings consistent with necrotizing fasciitis involving the RIGHT perineum. Extension of the fatty infiltration of the infection over the mons pubis. 2. No focal well formed abscess. Notified RODDY Valenzuela at 11/14/2024 10:41 AM. Chest X-Ray 11/14/24 09:55 IMPRESSION: Unremarkable portable chest. Laboratory Results WBC 24.47 10^3/uL (3.29-11.43) H 11/14/24 09:32 RBC 5.09 10^6/uL (3.85-5.65) 11/14/24 09:32 Hgb 16.60 g/dL (11.27-16.99) 11/14/24 09:32 Hct 48.8 % (36-47) H 11/14/24 09:32 MCV 95.9 fl (85-98) 11/14/24 09:32 MCH 32.6 pg (27-33) 11/14/24 09:32 MCHC 34.0 g/dL (30-55) 11/14/24 09:32 RDW 13.2 % (12.1-15.1) 11/14/24 09:32 Plt Count 126 10^3/cmm (157-399) L 11/14/24 09:32 MPV 11.1 fL (7.4-10.4) H 11/14/24 09:32 Neut % (Auto) 80.7 % 11/14/24 09:32 Lymph % (Auto) 13.4 % 11/14/24 09:32 Mathews % (Auto) 4.6 % 11/14/24 09:32 Eos % (Auto) 0.1 % 11/14/24 09:32 Baso % (Auto) 0.2 % 11/14/24 09:32 Neut # (Auto) 19.74 10^3/uL (1.8-7.7) H 11/14/24 09:32 Lymph # (Auto) 3.3 10^3/uL (0.8-4.8) 11/14/24 09:32 Mathews # (Auto) 1.1 10^3/uL (0.2-0.9) H 11/14/24 09:32 Eos # (Auto) 0.0 10^3/uL (0.0-0.8) 11/14/24 09:32 Baso # (Auto) 0.1 10^3/uL (0.0-0.1) 11/14/24 09:32 Nucleated RBC % (auto) 0 % 11/14/24 09:32 Nucleated RBCs # 0.0 /100WBC 11/14/24 09:32 Sodium 128 mmol/L (136-145) L 11/14/24 09:32 Potassium 4.5 mmol/L (3.5-5.1) 11/14/24 09:32 Chloride 90 mmol/L (98-107) L 11/14/24 09:32 Carbon Dioxide 26 mmol/L (22-29) 11/14/24 09:32 Anion Gap 16.5 (5-19) 11/14/24 09:32 BUN 19 mg/dL (6-20) 11/14/24 09:32 Creatinine 1.8 mg/dL (0.5-0.9) H 11/14/24 09:32 GFR Calculation 29.9 mL/min (90-130) L 11/14/24 09:32 Glucose 313 mg/dL (65-115) H 11/14/24 09:32 Estimat Average Glucose 183 11/14/24 09:32 Hemoglobin A1c 8.0 % (4.0-6.0) H 11/14/24 09:32 Calculated Osmolality 280 mOsm/kg (285-295) L 11/14/24 09:32 Lactic Acid 1.7 mmol/L (0.5-2.2) 11/14/24 09:32 Calcium 9.7 mg/dL (8.5-10.5) 11/14/24 09:32 Total Bilirubin 1.4 mg/dL (0.15-1.2) H 11/14/24 09:32 AST 25 U/L (0-32) 11/14/24 09:32 ALT 57 U/L (0-33) H 11/14/24 09:32 Alkaline Phosphatase 161 U/L (35-105) H 11/14/24 09:32 Total Protein 7.4 g/dL (6.6-8.7) 11/14/24 09:32 Albumin 3.4 g/dL (3.5-5.2) L 11/14/24 09:32 Globulin 4.0 g/dL (1.3-4.6) 11/14/24 09:32 Triglycerides 147 mg/dL (0-150) 11/14/24 09:32 Cholesterol 159 mg/dL (0-200) 11/14/24 09:32 LDL Cholesterol, Calc 90 mg/dL (50-129) 11/14/24 09:32 HDL Cholesterol 40 mg/dL (60-100) L 11/14/24 09:32 LDL/HDL Ratio 2.25 RATIO (0.00-3.22) 11/14/24 09:32 Cholesterol/HDL Ratio 3.98 mg/dL (0.0-4.40) 11/14/24 09:32 TSH 5.84 uIU/mL (0.27-4.20) H 11/14/24 09:32 Urine Color Dark yellow (Yellow) A 11/14/24 10:34 Urine Appearance Clear (CLEAR) 11/14/24 10:34 Urine pH 5.5 (5-7) 11/14/24 10:34 Ur Specific [place] 1.021 (1.005-1.030) 11/14/24 10:34 Urine Protein 1+ (Negative) A 11/14/24 10:34 Urine Glucose (UA) 3+ (Normal) H 11/14/24 10:34 Urine Ketones Negative (Negative) 11/14/24 10:34 Urine Blood Negative (Negative) 11/14/24 10:34 Urine Nitrate Positive (Negative) A 11/14/24 10:34 Urine Bilirubin Negative (Negative) 11/14/24 10:34 Urine Urobilinogen 1.0 mg/dL (Negative) 11/14/24 10:34 Ur Leukocyte Esterase Negative (Negative) 11/14/24 10:34 Urine RBC 0-2 /hpf (0-2) 11/14/24 10:34 Urine WBC 11-20 /hpf (0-5) H 11/14/24 10:34 Ur Squamous Epith Cells 0-5 /hpf (0-5) 11/14/24 10:34 Amorphous Sediment Not Reportable 11/14/24 10:34 Urine Bacteria 4+ /hpf (NONE) H 11/14/24 10:34 Hyaline Casts 1.65 /lpf 11/14/24 10:34 Serum Ketones Negative (Negative) 11/14/24 09:32 Adenovirus (PCR) Not detected (NOT DETECT) 11/14/24 09:37 C. pneumoniae DNA (PCR) Not detected (NOT DETECT) 11/14/24 09:37 Coronavirus (PCR) Cancelled 11/14/24 09:37 Coronavirus 229E (PCR) Not detected (NOT DETECT) 11/14/24 09:37 Human Metapneumovir PCR Not detected (NOT DETECT) 11/14/24 09:37 Influenza A (H1) PCR Not detected (NOT DETECT) 11/14/24 09:37 Influenza A (PCR) Cancelled 11/14/24 09:37 Influ A (H1/09) PCR Not detected (NOT DETECT) 11/14/24 09:37 Influenza A (H3) PCR Not detected (NOT DETECT) 11/14/24 09:37 Influenza Type A (PCR) Not detected (NOT DETECT) 11/14/24 09:37 Influenza Type B (PCR) Cancelled 11/14/24 09:37 Influenza Type B (PCR) Not detected (NOT DETECT) 11/14/24 09:37 M. pneumoniae (PCR) Not detected (NOT DETECT) 11/14/24 09:37 Parainfluenza 1 (PCR) Not detected (NOT DETECT) 11/14/24 09:37 Parainfluenza 2 (PCR) Not detected (NOT DETECT) 11/14/24 09:37 Parainfluenza 3 (PCR) Not detected (NOT DETECT) 11/14/24 09:37 Parainfluenza 4 (PCR) Not detected (NOT DETECT) 11/14/24 09:37 RSV (PCR) Cancelled 11/14/24 09:37 RSV Type A (PCR) Not detected (NOT DETECT) 11/14/24 09:37 RSV Type B (PCR) Not detected (NOT DETECT) 11/14/24 09:37 Entero/Rhino (PCR) Not detected (NOT DETECT) 11/14/24 09:37 SARS-CoV-2 (PCR) Not detected (NOT DETECT) 11/14/24 09:37 Discharge Plan Discharge Patient Disposition: Admitted As Inpatient Admit Provider: Lashay Andrews Clinical Impression: Necrotizing fasciitis, Hyperglycemia Condition: Stable Coding Level of Care Code ED Detailer Furniture for Carrie Melchor
[2024-11-14 09:50] LABS: Basophils # 0.1 10^3/uL (0.0-0.1); Basophils % 0.2 %; Eosinophils % 0.1 %; Hematocrit 48.8 % (36-47); Lymphocytes # 3.3 10^3/uL (0.8-4.8); Lymphocytes % 13.4 %; Mean Corpuscular Hemoglobin 32.6 pg (27-33); Mean Corpuscular Volume 95.9 fl (85-98); Mean Platelet Volume 11.1 fL (7.4-10.4); Monocytes # 1.1 10^3/uL (0.2-0.9); Monocytes % 4.6 %; Neutrophils # 19.74 10^3/uL (1.8-7.7); Neutrophils % 80.7 %; Nucleated Red Blood Cells % 0 %; Platelet Count 126 10^3/cmm (157-399); Red Blood Count 5.09 10^6/uL (3.85-5.65); Red Cell Distribution Width 13.2 % (12.1-15.1); White Blood Count 24.47 10^3/uL (3.29-11.43)
--- NOTE | 2024-11-14 09:55 | XR_ITS ---
WS: [id number] PORTABLE CHEST HISTORY: fever, cough COMPARISON: 06/17/2024 Prior CABG. Lungs are clear and well expanded. No pleural effusion or pneumothorax. Cardiac size: Normal. Mediastinum/Aorta: Normal mediastinum. No osseous abnormality seen. XR/XR chest 1V portable [id number] IMPRESSION: Unremarkable portable chest.
--- NOTE | 2024-11-14 10:04 | PC.PHAR ---
patient just completed zpak on thursday & fluconazole rx same way.. prednisone 20mg dose from 10/26 has also been removed as its been completed to.
[2024-11-14 10:05] LABS: Lactic Sepsis W/Reflex 1.7 mmol/L (0.5-2.2)
[2024-11-14 10:06] LABS: Alanine Aminotransferase 57 U/L (0-33); Albumin Level 3.4 g/dL (3.5-5.2); Alkaline Phosphatase 161 U/L (35-105); Anion Gap 16.5 (5-19); Aspartate Amino Transferase 25 U/L (0-32); Blood Urea Nitrogen 19 mg/dL (6-20); Calcium 9.7 mg/dL (8.5-10.5); Carbon Dioxide 26 mmol/L (22-29); Chloride 90 mmol/L (98-107); Creatinine Clr Calc Pharmacy 58.0533; Glomerular Filtration Rate 29.9 mL/min (90-130); Glucose 313 mg/dL (65-115); Osmolality Calculated 280 mOsm/kg (285-295); Potassium 4.5 mmol/L (3.5-5.1); Sodium 128 mmol/L (136-145); Total Bilirubin 1.4 mg/dL (0.15-1.2); Total Protein 7.4 g/dL (6.6-8.7)
[2024-11-14] MEDS: iohexol 350 mg/mL 500 mL Btl (per mL) IV (10:29)
[2024-11-14] MEDS: piperacillin-tazobactam 3.375 GM in sodium chloride 0.9% (plus) 50 ML IV ×2 (10:31→17:56)
[2024-11-14 10:38] LABS: Ketone (Acetest) Serum Negative (Negative)
[2024-11-14] MEDS: vancomycin 1,250 MG/250 ML PIGGYBACK 166.67 MG IV ×2 (10:59→23:20)
[2024-11-14] MEDS: sodium chloride 0.9% 1,000 ML 999 ML IV (11:00)
[2024-11-14 11:10] LABS: Bilirubin Urine Negative (Negative); Blood Urine Negative (Negative); Glucose Urine UA 3+ (Normal); Ketones Urine Negative (Negative); Leukocyte Esterase Urine Negative (Negative); Nitrate Urine Positive (Negative); Protein Urine 1+ (Negative); Specific Gravity, Urine 1.021 (1.005-1.030); Urine Appearance Clear (CLEAR); Urine Color Dark Yellow (Yellow); pH Urine 5.5 (5-7)
[2024-11-14 11:16] LABS: Add Urine Microscopic? YES; Bacteria Urine 4+ /hpf; Hyaline Casts Urine 1.65 /lpf; RBC Urine 0-2 /hpf (0-2); Squamous Epithelial Cell Urine 0-5 /hpf (0-5)
[2024-11-14 11:28] LABS: Add Urine Culture? Yes
[2024-11-14 11:54] LABS: Adenovirus Not Detected (NOT DETECT); Chlamydia Pneumoniae Not Detected (NOT DETECT); Coronavirus 229E,HKU1,NL63,OC4 Not Detected (NOT DETECT); Human Metapneumovirus Not Detected (NOT DETECT); Human Rhinovirus/Enterovirus Not Detected (NOT DETECT); Influenza A Not Detected (NOT DETECT); Influenza A H1 Not Detected (NOT DETECT); Influenza A H1-2009 Not Detected (NOT DETECT); Influenza A H3 Not Detected (NOT DETECT); Influenza B Not Detected (NOT DETECT); Mycoplasma Pneumoniae Not Detected (NOT DETECT); Parainfluenza Virus Type 1 Not Detected (NOT DETECT); Parainfluenza Virus Type 2 Not Detected (NOT DETECT); Parainfluenza Virus Type 3 Not Detected (NOT DETECT); Parainfluenza Virus Type 4 Not Detected (NOT DETECT); Respiratory Syncytial Virus A Not Detected (NOT DETECT); Respiratory Syncytial Virus B Not Detected (NOT DETECT); SARS-COV-2 Not Detected (NOT DETECT)
[2024-11-14] MEDS: ondansetron 2 mg/ML SDV 2 mL 4 MG IVP (12:23)
[2024-11-14] MEDS: morphine 4 mg/mL SDV 1 mL IVP (12:23)
--- NOTE | 2024-11-14 12:49 | PHA.VACGOAL ---
Vancomycin Goal - Goal Vancomycin Goal:: 15-20 mg/L Vancomycin Indication:: SSTI (Findings consistent with necrotizing fasciitis) - Therapy Current therapy:: Pip/Tazo Day of therpy:: Day []of [] . Actual body weight (kg): 340 lb - Data Labs: WBC 24.47 10^3/uL (3.29-11.43) H 11/14/24 09:32 RBC 5.09 10^6/uL (3.85-5.65) 11/14/24 09:32 Hgb 16.60 g/dL (11.27-16.99) 11/14/24 09:32 Hct 48.8 % (36-47) H 11/14/24 09:32 MCV 95.9 fl (85-98) 11/14/24 09:32 MCH 32.6 pg (27-33) 11/14/24 09:32 MCHC 34.0 g/dL (30-55) 11/14/24 09:32 RDW 13.2 % (12.1-15.1) 11/14/24 09:32 Sodium 128 mmol/L (136-145) L 11/14/24 09:32 Potassium 4.5 mmol/L (3.5-5.1) 11/14/24 09:32 Chloride 90 mmol/L (98-107) L 11/14/24 09:32 Carbon Dioxide 26 mmol/L (22-29) 11/14/24 09:32 Anion Gap 16.5 (5-19) 11/14/24 09:32 BUN 19 mg/dL (6-20) 11/14/24 09:32 Creatinine 1.8 mg/dL (0.5-0.9) H 11/14/24 09:32 GFR Calculation 29.9 mL/min (90-130) L 11/14/24 09:32 Last dialysis session:: N/A Treatment plan:: new consult Regimen:: 1250 MG LOADING DOSE GIVEN IN THE ER MAINTENANCE DOSE OF 1250 MG Q12H PER DOSING PROTOCOL. Follow up:: WILL CONTINUE TO MONITOR AND FOLLOW UP DAILY
[2024-11-14 13:04] LABS: Estmated Average Glucose 183
[2024-11-14 13:14] LABS: Chol HDL Ratio 3.98 mg/dL (0.0-4.40); Cholesterol 159 mg/dL (0-200); HDL Cholesterol 40 mg/dL (60-100); LDL Cholesterol Calculated 90 mg/dL (50-129); LDL HDL Ratio 2.25 RATIO (0.00-3.22); Thyroid Stimulating Hormone 5.84 uIU/mL (0.27-4.20); Triglycerides 147 mg/dL (0-150)
[2024-11-14 13:46] LABS: Glucose Point of Care 247 mg/dL (70-110)
[2024-11-14] MEDS: HYDROmorphone 1 mg/mL INJ 1 mL IVP (13:49)
--- NOTE | 2024-11-14 14:36 | ECG_ITS ---
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 Measurements Intervals [place] Rate: 81 P: 46 IN: 149 QRS: 18 QRSD: 98 T: 64 QT: 382 QTc: 444 Interpretive Statements SINUS RHYTHM POSSIBLE INFERIOR MYOCARDIAL INFARCTION , PROBABLY OLD [30 ms Q WAVE IN II/aVF] Compared to ECG 06/17/2024 21:30:36 Myocardial infarct finding now present Sinus bradycardia no longer present Electronically Signed On 11-14-2024 17:06:13 BOOK ILLUSTRATOR by Citlaly eJrez M.D. [email or web address]
--- NOTE | 2024-11-14 15:29 | P.HP_ITS ---
Providers/Chief Complaint 2 Admitting Physician: Lashay Andrews MD Primary SKI PATROL OFFICER: Yovani Hurd MD Primary Care Provider: JEAN Bess Chief Complaint: swelling in private areas HPI SKI PATROL OFFICER History of Present Illness Essie Garcia is a 49 year old female h/o hysterectomy still has ovaries was in usual state of health until Tuesday, November 12, 2024 when she noted pain in right perineum began to swell with worsening pain yesterday and today + fever and chills no nausea, vomiting, abdominal pain Medications/Allergies Home Medications Medication Instructions Recorded Confirmed Last Taken Type pramipexole 0.5 mg tablet 0.5 mg PO DAILY PRN Restless Leg(S) 04/04/22 11/14/24 06/16/24 History ranolazine 1,000 mg 1,000 mg PO Q12H 12/22/22 11/14/24 06/17/24 History tablet,extended release,12 hr celecoxib 100 mg capsule (Celebrex) 100 mg PO DAILY 12/17/23 11/14/24 06/17/24 History ezetimibe 10 mg tablet 10 mg PO BEDTIME 06/17/24 11/14/24 06/16/24 History lisinopril 10 mg tablet 10 mg PO DAILY #30 tabs 06/18/24 11/14/24 Unknown Rx evolocumab 140 mg/mL subcutaneous 140 mg SUBCUT Q14D 08/01/24 11/14/24 Unknown History pen injector (Savage Kaur) alprazolam 0.25 mg tablet (Xanax) 0.25 mg PO DAILY PRN anxiety #15 08/09/24 11/14/24 Unknown Rx tabs budesonide-formoterol HFA 160 2 puff inhalation BID 08/29/24 11/14/24 Unknown History mcg-4.5 mcg/actuation aerosol inhaler (Symbicort) furosemide 40 mg tablet (Lasix) 40 mg PO DAILY 08/29/24 11/14/24 Unknown History omeprazole 40 mg capsule,delayed 40 mg PO BID 08/29/24 11/14/24 Unknown History release sucralfate 1 gram tablet 1 g PO .4 times daily 08/29/24 11/14/24 Unknown History isosorbide mononitrate 60 mg 120 mg PO DAILY 09/30/24 11/14/24 Unknown History tablet,extended release 24 hr aripiprazole 2 mg tablet (Abilify) 2 mg PO DAILY #30 tabs 10/28/24 11/14/24 Unknown Rx varenicline 1 mg tablet (Chantix 1 mg PO BID #56 tabs 10/28/24 11/14/24 Unknown Rx Continuing Month Box) venlafaxine 75 mg capsule,extended 75 mg PO DAILY #30 caps 11/10/24 11/14/24 Unknown Rx release 24 hr (Effexor XR) levothyroxine 150 mcg tablet 150 mcg PO DAILY 11/14/24 11/14/24 Unknown History metoprolol succinate 50 mg 50 mg PO DAILY 11/14/24 11/14/24 Unknown History tablet,extended release 24 hr triamcinolone acetonide 0.5 % 1 applic topical BID 11/14/24 11/14/24 Unknown History topical ointment Allergies Allergy/AdvReac Type Severity Reaction Status Date / Time codeine Allergy Unknown Unknown Verified 10/28/24 08:30 PFSH SKI PATROL OFFICER 2 PFSH: Medical History Nicotine use disorder History of coronary artery disease Unstable angina pectoris Unstable angina Obesity, morbid, BMI 50 or higher Unstable angina Panic disorder Generalized anxiety disorder Psychiatric care Anxiety GERD (gastroesophageal reflux disease) Hypothyroidism Coronary artery disease Surgical History History of cholecystectomy History of tonsillectomy History of tubal ligation History of hysterectomy History of coronary artery bypass graft Family History Other CAD (coronary artery disease) Stroke Social History Smoking and tobacco/nicotine status: current every day tobacco/nicotine user Alcohol intake: never Vitals/I&O/Wt Last Vital Signs Temp 97.0 F L 11/14/24 15:11 Pulse 79 11/14/24 15:16 Resp 18 11/14/24 15:16 BP 109/59 11/14/24 15:16 Pulse Ox 96 11/14/24 15:16 O2 Del Method Room Air 11/14/24 15:11 O2 Flow Rate 2 11/14/24 14:45 11/14/24 11/14/24 11/14/24 06:59 14:59 22:59 Intake Total 50 / 50 Balance 50 / 50 Weight last 48 hrs Weight 340 lb Physical Exam 2 Narrative: General: comfortable, awake, alert Abd: soft, nontender Vulva: + marked erythema and swelling right vulva from mons pubis to perirectal tissue + tender to palpation + fluctuance no evidence of necrosis no drainage Urinary Catheter Management: Moss: Cath Placed During This Visit: yes Urinary Catheter Date of Insertion: 11/14/24 Urinary Catheter Time of Insertion: 13:30 Data 11/14/24 09:32 11/14/24 09:32 Micro: Microbiology 11/14/24 09:35 Blood Culture - Preliminary Blood SPECIMEN COLLECTED 11/14/24 09:32 Blood Culture - Preliminary Blood SPECIMEN COLLECTED Results Labs OB ([facility]): 2 Hct 48.8 % (36-47) H 11/14/24 Hgb 16.60 g/dL (11.27-16.99) 11/14/24 Plt Count 126 10^3/cmm (157-399) L 11/14/24 TSH 5.84 uIU/mL (0.27-4.20) H 11/14/24 Hemoglobin A1c 8.0 % (4.0-6.0) H 11/14/24 Micro Urine Specimen 11/14/24 A&P Assessment and plan (1) Vulvar abscess: 49 y.o. with history of coronary artery disease, uncontrolled diabetes, morbid obesity now has large right vulvar abscess extending from mons pubis to perirectal region, possible necrotizing fasciitis will admit for IV antibiotics and management of blood sugars plan I&D, packing, possible debridement of vulva today procedure and risks explained to patient explained to patient that she may require repeat debridement and packing of wound; and long-term wound care including hyperbaric oxygen treatment patient understands and wants to proceed Attestations 2 Medical Necessity Statement*: patient with vulvar abscess, admit for treatment Coding Level of Care Code Acute Code for Chg Fwd Diagnoses Vulvar abscess N76.4 Time Spent (min) 120
--- NOTE | 2024-11-14 15:49 | ANES.PREANE2 ---
Pre-Anesthetic Assessment Height/Weight: Height 1.68 m Weight 154.221 kg Temp Pulse Resp BP Pulse Ox O2 Del Method O2 Flow Rate 97.0 F L 79 18 109/59 96 Room Air 2 11/14/24 15:11 11/14/24 15:16 11/14/24 15:16 11/14/24 15:16 11/14/24 15:16 11/14/24 15:11 11/14/24 14:45 Operation Date: 11/14/24 16:00 Proposed Procedures p Incision And Drainage vulvar abscess(Not Applicable) - Yovani Hurd MD Familial anesthetic complications: none Was Beta Keila taken within 24 hours: Yes Was Clonidine taken within 24 hours: N/A Social Tobacco and No alcohol Exam alert, oriented x 3 and regular rate & rhythm Airway Submandibular: within normal limits Cervical ROM: within normal limits Mallampati: Class II Dentition: false (upper) Pulmonary Chronic Obstructive Pulmonary Disease CV/HEM Coronary Artery Disease (s/p CABG) and Hypertension GI Gastroesophageal Reflux Disease Metabolic Diabetes Mellitus, Morbid Obesity and Thyroid Disease Neuropsych Anxiety and Depression Anesthetic Plan ASA status: 4 Anesthesia: General Medications/Allergies Home Medications Medication Instructions Recorded Confirmed Last Taken Type pramipexole 0.5 mg tablet 0.5 mg PO DAILY PRN Restless Leg(S) 04/04/22 11/14/24 06/16/24 History ranolazine 1,000 mg 1,000 mg PO Q12H 12/22/22 11/14/24 06/17/24 History tablet,extended release,12 hr celecoxib 100 mg capsule (Celebrex) 100 mg PO DAILY 12/17/23 11/14/24 06/17/24 History ezetimibe 10 mg tablet 10 mg PO BEDTIME 06/17/24 11/14/24 06/16/24 History lisinopril 10 mg tablet 10 mg PO DAILY #30 tabs 06/18/24 11/14/24 Unknown Rx evolocumab 140 mg/mL subcutaneous 140 mg SUBCUT Q14D 08/01/24 11/14/24 Unknown History pen injector (Savage Kaur) alprazolam 0.25 mg tablet (Xanax) 0.25 mg PO DAILY PRN anxiety #15 08/09/24 11/14/24 Unknown Rx tabs budesonide-formoterol HFA 160 2 puff inhalation BID 10/21/24 01/06/25 Unknown History mcg-4.5 mcg/actuation aerosol inhaler (Symbicort) furosemide 40 mg tablet (Lasix) 40 mg PO DAILY 08/29/24 11/14/24 Unknown History omeprazole 40 mg capsule,delayed 40 mg PO BID 08/29/24 11/14/24 Unknown History release sucralfate 1 gram tablet 1 g PO .4 times daily 08/29/24 11/14/24 Unknown History isosorbide mononitrate 60 mg 120 mg PO DAILY 09/30/24 11/14/24 Unknown History tablet,extended release 24 hr aripiprazole 2 mg tablet (Abilify) 2 mg PO DAILY #30 tabs 10/28/24 11/14/24 Unknown Rx varenicline 1 mg tablet (Chantix 1 mg PO BID #56 tabs 10/28/24 11/14/24 Unknown Rx Continuing Month Box) venlafaxine 75 mg capsule,extended 75 mg PO DAILY #30 caps 11/10/24 11/14/24 Unknown Rx release 24 hr (Effexor XR) levothyroxine 150 mcg tablet 150 mcg PO DAILY 11/14/24 11/14/24 Unknown History metoprolol succinate 50 mg 50 mg PO DAILY 11/14/24 11/14/24 Unknown History tablet,extended release 24 hr triamcinolone acetonide 0.5 % 1 applic topical BID 11/14/24 11/14/24 Unknown History topical ointment Allergies Allergy/AdvReac Type Severity Reaction Status Date / Time codeine Allergy Unknown Unknown Verified 10/28/24 08:30 [facility] Anesthesia Medical History Nicotine use disorder History of coronary artery disease Unstable angina pectoris Unstable angina Obesity, morbid, BMI 50 or higher Unstable angina Panic disorder Generalized anxiety disorder Psychiatric care Anxiety GERD (gastroesophageal reflux disease) Hypothyroidism Coronary artery disease Surgical History History of cholecystectomy History of tonsillectomy History of tubal ligation History of hysterectomy History of coronary artery bypass graft Family History Other CAD (coronary artery disease) Stroke Social History Smoking and tobacco/nicotine status: current every day tobacco/nicotine user Alcohol intake: never Data Anesthesia 11/14/24 09:32 11/14/24 09:32 Short CBC 11/14/24 Range/Units 09:32 WBC 24.47 H (3.29-11.43) 10^3/uL Hgb 16.60 (11.27-16.99) g/dL Hct 48.8 H (36-47) % MCV 95.9 (85-98) fl Plt Count 126 L (157-399) 10^3/cmm Neut % (Auto) 80.7 % Neut # (Auto) 19.74 H (1.8-7.7) 10^3/uL BMP 11/14/24 09:32 Sodium 128 L Potassium 4.5 Chloride 90 L Carbon Dioxide 26 BUN 19 Creatinine 1.8 H Glucose 313 H Calcium 9.7 Liver Function 11/14/24 Range/Units 09:32 Total Bilirubin 1.4 H (0.15-1.2) mg/dL AST 25 (0-32) U/L ALT 57 H (0-33) U/L Alkaline Phosphatase 161 H (35-105) U/L Albumin 3.4 L (3.5-5.2) g/dL Urine 11/14/24 Range/Units 10:34 Urine Color Dark yellow A (Yellow) Urine Appearance Clear (CLEAR) Urine pH 5.5 (5-7) Ur Specific [place] 1.021 (1.005-1.030) Urine Protein 1+ A (Negative) Urine Glucose (UA) 3+ H (Normal) Urine Ketones Negative (Negative) Urine Nitrate Positive A (Negative) Urine Bilirubin Negative (Negative) Ur Leukocyte Esterase Negative (Negative) Urine RBC 0-2 (0-2) /hpf Urine WBC 11-20 H (0-5) /hpf COVID Results 11/14/24 09:37 Coronavirus (PCR) Cancelled Coronavirus 229E (PCR) Not detected SARS-CoV-2 (PCR) Not detected Microbiology 11/14/24 09:35 Blood Culture - Preliminary Blood SPECIMEN COLLECTED 11/14/24 09:32 Blood Culture - Preliminary Blood SPECIMEN COLLECTED Cardiac Studies: Echocardiogram 12/22/22
--- NOTE | 2024-11-14 16:01 | P.CONIM_ITS ---
Providers/Reason For Consult 2 Consulting Physician/Specialty*: Dr. Topete general surgery Reason for Consult*: Necrotizing soft tissue infection of the vulva Attending Physician: Lashay Andrews MD Primary Care Provider: JEAN Bess History of Present Illness History of Present Illness Essie Garcia is a 49 year old female who presents with a right vulvar necrotizing soft tissue infection. Sodium 128. White count 24. She has noticed this for several days. Dr. Hurd is the primary surgeon. I have been asked to be available in case assisting the operating room as needed. Medications/Allergies Home Medications Medication Instructions Recorded Confirmed Last Taken Type pramipexole 0.5 mg tablet 0.5 mg PO DAILY PRN Restless Leg(S) 04/04/22 11/14/24 06/16/24 History ranolazine 1,000 mg 1,000 mg PO Q12H 12/22/22 11/14/24 06/17/24 History tablet,extended release,12 hr celecoxib 100 mg capsule (Celebrex) 100 mg PO DAILY 12/17/23 11/14/24 06/17/24 History ezetimibe 10 mg tablet 10 mg PO BEDTIME 06/17/24 11/14/24 06/16/24 History lisinopril 10 mg tablet 10 mg PO DAILY #30 tabs 06/18/24 11/14/24 Unknown Rx evolocumab 140 mg/mL subcutaneous 140 mg SUBCUT Q14D 08/01/24 11/14/24 Unknown History pen injector (Savage Kaur) alprazolam 0.25 mg tablet (Xanax) 0.25 mg PO DAILY PRN anxiety #15 08/09/24 11/14/24 Unknown Rx tabs budesonide-formoterol HFA 160 2 puff inhalation BID 08/29/24 11/14/24 Unknown History mcg-4.5 mcg/actuation aerosol inhaler (Symbicort) furosemide 40 mg tablet (Lasix) 40 mg PO DAILY 08/29/24 11/14/24 Unknown History omeprazole 40 mg capsule,delayed 40 mg PO BID 08/29/24 11/14/24 Unknown History release sucralfate 1 gram tablet 1 g PO .4 times daily 08/29/24 11/14/24 Unknown History isosorbide mononitrate 60 mg 120 mg PO DAILY 09/30/24 11/14/24 Unknown History tablet,extended release 24 hr aripiprazole 2 mg tablet (Abilify) 2 mg PO DAILY #30 tabs 10/28/24 11/14/24 Unknown Rx varenicline 1 mg tablet (Chantix 1 mg PO BID #56 tabs 10/28/24 11/14/24 Unknown Rx Continuing Month Box) venlafaxine 75 mg capsule,extended 75 mg PO DAILY #30 caps 11/10/24 11/14/24 Unknown Rx release 24 hr (Effexor XR) levothyroxine 150 mcg tablet 150 mcg PO DAILY 11/14/24 11/14/24 Unknown History metoprolol succinate 50 mg 50 mg PO DAILY 11/14/24 11/14/24 Unknown History tablet,extended release 24 hr triamcinolone acetonide 0.5 % 1 applic topical BID 11/14/24 11/14/24 Unknown History topical ointment Allergies Allergy/AdvReac Type Severity Reaction Status Date / Time codeine Allergy Unknown Unknown Verified 10/28/24 08:30 PFSH Acute 2 PFSH: Medical History Nicotine use disorder History of coronary artery disease Unstable angina pectoris Unstable angina Obesity, morbid, BMI 50 or higher Unstable angina Panic disorder Generalized anxiety disorder Psychiatric care Anxiety GERD (gastroesophageal reflux disease) Hypothyroidism Coronary artery disease Surgical History History of cholecystectomy History of tonsillectomy History of tubal ligation History of hysterectomy History of coronary artery bypass graft Family History Other CAD (coronary artery disease) Stroke Social History Smoking and tobacco/nicotine status: current every day tobacco/nicotine user Alcohol intake: never Vitals/I&O/Wt Last Vital Signs Temp 97.0 F L 11/14/24 15:11 Pulse 79 11/14/24 15:16 Resp 18 11/14/24 15:16 BP 109/59 11/14/24 15:16 Pulse Ox 96 11/14/24 15:16 O2 Del Method Room Air 11/14/24 15:11 O2 Flow Rate 2 11/14/24 14:45 11/14/24 11/14/24 11/14/24 06:59 14:59 22:59 Intake Total 50 / 50 Balance 50 / 50 Weight last 48 hrs Weight 340 lb Physical Exam 2 Narrative: Right vulva is indurated and extremely tender to touch Patient is hemodynamically appropriate at this time Urinary Catheter Management: Moss: Cath Placed During This Visit: yes Urinary Catheter Date of Insertion: 11/14/24 Urinary Catheter Time of Insertion: 13:30 Data 11/14/24 09:32 11/14/24 09:32 Micro: Microbiology 11/14/24 09:35 Blood Culture - Preliminary Blood SPECIMEN COLLECTED 11/14/24 09:32 Blood Culture - Preliminary Blood SPECIMEN COLLECTED A&P Assessment and plan (1) Necrotizing soft tissue infection: Plan 49-year-old female who presents with necrotizing soft tissue infection of the vulva. Dr. Hurd is the primary surgeon and I will remain available should my assistance be required in the operating room. Coding Level of Care Code 08263 Diagnoses Necrotizing soft tissue infection M79.89 Time Spent (min) 30
--- NOTE | 2024-11-14 17:07 | P.OP_ITS ---
Operative Report Date of procedure: November 14, 2024 Pre-op diagnosis: necrotizing soft tissue infection vulva and perineum Post-op diagnosis: same Post-op findings: necrotizing soft tissue infection of vulva and perineum Procedure done: Incision and drainage of vulva and perineum, sharp debridement Implants: NA Specimens removed/disposition: Cultures sent Pathology: none sent Surgeon: Yovani Hurd Voip Network Engineer: Deuce Topete Anesthesia: General Complications: na Findings: Necrotizing soft tissue infection of the right labia as well as right buttock Condition: critical Disposition: ICU Brief History: 49-year-old female who presented with a necrotizing soft tissue infection of the vulva perineum. Dr. Hurd to the patient to the operating room and called me for assistance. Procedure: I assisted Dr. Hurd in performing an incision and drainage of the right labia and right buttock. Please see Dr. Hurd's note for full dictation. We encountered a significant amount of necrotic fat and muscle. We proceeded with a sharp debridement until we obtained healthy tissue at the wound base. We irrigated copiously with sodium peroxide. Adequate hemostasis was achieved and the wound was packed with a Kerlix impregnated in Betadine. Patient will be taken back to the operating room for a second debridement in 2 days.
--- NOTE | 2024-11-14 17:12 | P.HP_ITS ---
Providers/Chief Complaint 2 Admitting Physician: Lashay Andrews MD Primary Care Provider: JEAN Bess Chief Complaint: swelling in private areas History of Present Illness Essie Garcia is a 49 year old female presenting today with c/o swelling over the labial region starting on Thursday. She has been on high dose steroids recently due to ?screlitis over the past month. She has been dealing with intermittent thrush and vaginal candidiasis for which she has received fluconazole recently.She has also been using period pads due to urinary incontinence related to coughing from URI symptoms requiring Z pack. The area has been itchy. She has a h/o Bartholin cyst. Since thursday she has increased pain, redness and swelling. CT today raised concern for nec fascitis of the vulva. She was taken to the OR this afternoon for I&D and has just returned to the unit. She not a known diabetic, last A1c ~ 5 in Jun 2024 Review of Systems 2 General: Reports: 10 or more systems reviewed and unremarkable except in HPI and below Const: Denies: fever(s), chills or body aches Eyes: Denies: change in vision, blurry vision or photophobia ENMT: Reports: hoarseness; Denies: throat pain, enlarged tonsils, odynophagia or nasal congestion Card: Denies: chest pain, palpitations, irregular heart rhythm, edema, swelling of feet/ankles, lightheadedness, pre-syncope, dyspnea on exertion or orthopnea Resp: Denies: dyspnea, productive cough, non-productive cough, wheezing, stridor, pain on inspiration, change in phlegm color, hemoptysis or chest congestion GI: Denies: abdominal pain, nausea, vomiting, hematemesis, coffee ground emesis, dysphagia, heartburn, diarrhea, constipation, GI cramping, change in stool character, hematochezia or melena : Denies: flank pain, difficulty voiding, dysuria, urinary frequency, urinary urgency, urinary hesitancy or hematuria Musc: Denies: neck pain, back pain, extremity pain, joint swelling, joint warmth or deformity Neuro: Denies: headache(s), numbness in extremities, weakness in extremities, sensory changes, difficulty walking, frequent falls, dizziness, vertigo, behavioral changes, Slurred speech present or seizure-like activity Psych: Denies: anxiety, depression, suicidal ideation or homicidal ideation Endo: Denies: polyuria, polydipsia, tired all the time, cold intolerance or hot flashes John/Lymph: Denies: easy bruising or easy bleeding Medications/Allergies Home Medications Medication Instructions Recorded Confirmed Last Taken Type pramipexole 0.5 mg tablet 0.5 mg PO DAILY PRN Restless Leg(S) 04/04/22 11/14/24 06/16/24 History ranolazine 1,000 mg 1,000 mg PO Q12H 12/22/22 11/14/24 06/17/24 History tablet,extended release,12 hr celecoxib 100 mg capsule (Celebrex) 100 mg PO DAILY 12/17/23 11/14/24 06/17/24 History ezetimibe 10 mg tablet 10 mg PO BEDTIME 06/17/24 11/14/24 06/16/24 History lisinopril 10 mg tablet 10 mg PO DAILY #30 tabs 06/18/24 11/14/24 Unknown Rx evolocumab 140 mg/mL subcutaneous 140 mg SUBCUT Q14D 08/01/24 11/14/24 Unknown History pen injector (Savage Kaur) alprazolam 0.25 mg tablet (Xanax) 0.25 mg PO DAILY PRN anxiety #15 08/09/24 11/14/24 Unknown Rx tabs budesonide-formoterol HFA 160 2 puff inhalation BID 08/29/24 11/14/24 Unknown History mcg-4.5 mcg/actuation aerosol inhaler (Symbicort) furosemide 40 mg tablet (Lasix) 40 mg PO DAILY 08/29/24 11/14/24 Unknown History omeprazole 40 mg capsule,delayed 40 mg PO BID 08/29/24 11/14/24 Unknown History release sucralfate 1 gram tablet 1 g PO .4 times daily 08/29/24 11/14/24 Unknown History isosorbide mononitrate 60 mg 120 mg PO DAILY 09/30/24 11/14/24 Unknown History tablet,extended release 24 hr aripiprazole 2 mg tablet (Abilify) 2 mg PO DAILY #30 tabs 10/28/24 11/14/24 Unknown Rx varenicline 1 mg tablet (Chantix 1 mg PO BID #56 tabs 10/28/24 11/14/24 Unknown Rx Continuing Month Box) venlafaxine 75 mg capsule,extended 75 mg PO DAILY #30 caps 11/10/24 11/14/24 Unknown Rx release 24 hr (Effexor XR) levothyroxine 150 mcg tablet 150 mcg PO DAILY 11/14/24 11/14/24 Unknown History metoprolol succinate 50 mg 50 mg PO DAILY 11/14/24 11/14/24 Unknown History tablet,extended release 24 hr triamcinolone acetonide 0.5 % 1 applic topical BID 11/14/24 11/14/24 Unknown History topical ointment Allergies Allergy/AdvReac Type Severity Reaction Status Date / Time codeine Allergy Unknown Unknown Verified 10/28/24 08:30 PFSH Acute 2 PFSH: Medical History Nicotine use disorder History of coronary artery disease Unstable angina pectoris Unstable angina Obesity, morbid, BMI 50 or higher Unstable angina Panic disorder Generalized anxiety disorder Psychiatric care Anxiety GERD (gastroesophageal reflux disease) Hypothyroidism Coronary artery disease Surgical History History of cholecystectomy History of tonsillectomy History of tubal ligation History of hysterectomy History of coronary artery bypass graft Family History Other CAD (coronary artery disease) Stroke Social History Smoking and tobacco/nicotine status: current every day tobacco/nicotine user Alcohol intake: never Vitals/I&O/Wt Last Vital Signs Temp 97.0 F L 11/14/24 15:11 Pulse 85 11/14/24 17:36 Resp 20 H 11/14/24 21:48 BP 109/59 11/14/24 15:16 Pulse Ox 96 11/14/24 21:48 O2 Del Method Room Air 11/14/24 17:36 O2 Flow Rate 2 11/14/24 14:45 11/14/24 11/14/24 11/15/24 14:59 22:59 06:59 Intake Total 50 / 50 1300 / 1350 Balance 50 / 50 1300 / 1350 Weight last 48 hrs Weight 152 kg Weight 154.221 kg Physical Exam 2 Narrative: General: No acute distress, AO x3 HEENT: PERRLA, pupils bilaterally equal and reactive, pallors not present Chest: Normal vesicular breath sounds, no added sounds, equal good air entry bilaterally CVS: S1-S2 regular, no murmurs, no tachycardia, no gallops, no rubs Abdomen: Soft, nontender, no organomegaly, bowel sounds present Neuro: No focal deficits, no facial deformity, AO x3, power 5/5 in all limbs Extremities: post op dressing over right labia Urinary Catheter Management: Moss: Cath Placed During This Visit: yes Reason for Continuing Indwelling Catheter: Accurate Measurement of Urinary Output in Critically Ill Patients Urinary Catheter Date of Insertion: 11/14/24 Urinary Catheter Time of Insertion: 13:30 Data 11/15/24 04:10 11/15/24 04:10 Micro: Microbiology 11/14/24 09:35 Blood Culture - Preliminary Blood SPECIMEN COLLECTED 11/14/24 09:32 Blood Culture - Preliminary Blood SPECIMEN COLLECTED A&P Assessment and plan (1) Necrotizing fasciitis: 49F with recent steroid use and candidiasis presenting with labial cellulitis/ nec fascitis s/p I & D this evening Awaiting to review OP note and findings She has just returned post surgery CUrrently awake alert and oriented, stable hemodynamics Admit to med/surg Continue and vancomycin empirically Follow blood cx and OR cx IVF NS bolus given in ER, clinically euvolemic for now Moss catheter placed for perineal hygiene as post op wound heals (2) History of recent steroid use: check Hba1c Plan DVT ppx: Lovenox 40 s/c to start after surgery Full code Attestations 2 Medical Necessity Statement*: > 2 midnight stay anticipated Coding Level of Care Code Acute Code for g Fwd Diagnoses Necrotizing fasciitis M72.6 History of recent steroid use Z92.241
[2024-11-14] MEDS: sodium chloride 0.9% 1,000 ML 30 ML IV (17:26)
[2024-11-14] MEDS: ranolazine (12HR) 500 mg Tablet 1000 MG PO (17:56)
--- NOTE | 2024-11-14 18:45 | PM.OP ---
Operative Report Date of procedure: November 14, 2024 Pre-op diagnosis: Right vulvar abscess Post-op diagnosis: same Post-op findings: Right vulvar abscess extending from mons pubis to perianal region Large abscess cavity, approximately 45 cm in length, 15 cm in width, 20 cm in depth + necrotic coagulum deep in abscess cavity + malodorous purulent material + tissue induration Procedure done: incision, drainage and packing of Right Vulvar abscess Debridement of right vulvar abscess cavity Cultures of purulent material from Right Vulvar abscess Specimens removed/disposition: aerobic and anaerobic cultures Surgeon: Yovani Hurd MD Software Development Project Manager: Dr. Tom MD Anesthesia: General Estimated blood loss (mL): 20 Complications: none Findings: Right vulvar abscess extending from mons pubis to perianal region Large abscess cavity, approximately 45 cm in length, 15 cm in width, 20 cm in depth + necrotic coagulum deep in abscess cavity + malodorous purulent material + tissue induration Condition: stable Disposition: ICU Brief History: 49 y.o. with right vulvar abscess Procedure: Informed consent was obtained for incision, drainage, and packing of right vulvar abscess. The patient was taken to the OR and placed on the table. General anesthesia was given. Patient was then placed in dorsolithotomy position. The perineum was prepped and draped in the usual sterile fashion. A Right vulvar fluctuant abscess extending from the mons pubis to the right perianal region was identified. A Moss catheter was placed. A 30 cm manuel-posterior incision was made on the surface of the abscess, parallel to the right labia. Immediately, pus and purulent material was obtained. Aerobic and anaerobic cultures were done. The abscess cavity was explored and loculations were cleared. Necrotic coagulum deep in the abscess cavity were removed with sharp dissection. Most of the remaining tissues were healthy-appearing. The abscess cavity was copiously irrigated with hydrogen peroxide. The cavity was then packed with betadine-soaked gauze. The patient was then placed supine, awakened, and taken to the RR in good condition. Postoperative condition: good Blood loss: 20 cc Complications: none Sponge and instrument counts correct x two
[2024-11-14] MEDS: acetaminophen 325 mg Tablet 650 MG PO (19:51)
[2024-11-14] MEDS: morphine 4 mg/mL SDV 1 mL 2 MG IVP (21:48)
[2024-11-14] MEDS: ezetimibe 10 mg Tablet PO (21:50)
[2024-11-15] VITALS (95 sets, daily range): BP systolic 91–152; BP diastolic 43–96; PULSE 52–148; RESP 14–29; TEMP 35.9–36.5; O2SAT 90–99
--- NOTE | 2024-11-15 00:01 | PC.NURSE ---
Glucose level Upon checking patient's blood sugar level, it was found to be 498. Contacted Dr. Agarwal who placed an order for 10 units Humalin R IVP.
[2024-11-15] MEDS: insulin regular-human 10 UNIT in SYRINGE 1 EACH IVP (00:25)
[2024-11-15] MEDS: insulin regular-human 5 UNIT in SYRINGE 1 EACH 100 UNIT IVP (02:28)
[2024-11-15] MEDS: piperacillin-tazobactam 3.375 GM in sodium chloride 0.9% (plus) 50 ML IV ×3 (02:48→18:11)
[2024-11-15 04:52] LABS: Basophils % 0.1 %; Hematocrit 45.8 % (36-47); Lymphocytes # 1.4 10^3/uL (0.8-4.8); Lymphocytes % 6.6 %; Mean Corpuscular HGB Conc 33.4 g/dL (30-55); Mean Corpuscular Hemoglobin 32.4 pg (27-33); Mean Platelet Volume 11.6 fL (7.4-10.4); Monocytes % 4.5 %; Neutrophils # 18.58 10^3/uL (1.8-7.7); Neutrophils % 87.9 %; Nucleated Red Blood Cells % 0 %; Platelet Count 107 10^3/cmm (157-399); Red Blood Count 4.72 10^6/uL (3.85-5.65); Red Cell Distribution Width 13.1 % (12.1-15.1); White Blood Count 21.17 10^3/uL (3.29-11.43)
[2024-11-15 05:10] LABS: Bacillus cereus group Not Detected (NOT DETECT); Bacillus subtillis group Not Detected (NOT DETECT); Corynebacterium Not Detected (NOT DETECT); Cutibacterium acnes (P.acnes) Not Detected (NOT DETECT); Enterococcus Not Detected (NOT DETECT); Enterococcus faecalis Not Detected (NOT DETECT); Enterococcus faecium Not Detected (NOT DETECT); Lactobacillus species Not Detected (NOT DETECT); Listeria Not Detected (NOT DETECT); Listeria monocytogenes Not Detected (NOT DETECT); Micrococcus Not Detected (NOT DETECT); Pan Candida Not Detected (NOT DETECT); Pan Gram-Negative Not Detected (NOT DETECT); Staphylococcus epidermidis Not Detected (NOT DETECT); Staphylococcus lugdunensis Not Detected (NOT DETECT); Staphylococcus species Detected (NOT DETECT); Streptococcus agalactiae Not Detected (NOT DETECT); Streptococcus anginosus group Not Detected (NOT DETECT); Streptococcus pneumoniae Not Detected (NOT DETECT); Streptococcus pyogenes Not Detected (NOT DETECT); Streptococcus species Not Detected (NOT DETECT); mecA Detected (NOT DETECT); mecC Not Detected (NOT DETECT)
[2024-11-15 05:11] LABS: Alanine Aminotransferase 47 U/L (0-33); Albumin Level 3.1 g/dL (3.5-5.2); Alkaline Phosphatase 138 U/L (35-105); Anion Gap 16.2 (5-19); Aspartate Amino Transferase 21 U/L (0-32); Blood Urea Nitrogen 13 mg/dL (6-20); Carbon Dioxide 23 mmol/L (22-29); Chloride 99 mmol/L (98-107); Creatinine Clr Calc Pharmacy 86.2846; Globulin 3.5 g/dL (1.3-4.6); Glomerular Filtration Rate 47.7 mL/min (90-130); Glucose 281 mg/dL (65-115); Osmolality Calculated 286 mOsm/kg (285-295); Potassium 5.2 mmol/L (3.5-5.1); Sodium 133 mmol/L (136-145); Total Protein 6.6 g/dL (6.6-8.7)
[2024-11-15] MEDS: ranolazine (12HR) 500 mg Tablet 1000 MG PO ×2 (06:35→18:09)
[2024-11-15] MEDS: insulin lispro 100 unit/1 mL SUBCUT ×4 (08:14→21:01)
[2024-11-15] MEDS: ARIPiprazole 2 mg Tablet PO (08:14)
[2024-11-15] MEDS: pantoprazole DR 40 mg Tablet PO (08:15)
[2024-11-15] MEDS: metoprolol succinate ER (24 HR) 50 mg Tablet PO (08:15)
[2024-11-15] MEDS: levothyroxine 150 mcg Tablet PO (08:15)
[2024-11-15] MEDS: venlafaxine ER (24HR) 75 mg Capsule PO (08:15)
[2024-11-15] MEDS: vancomycin 1,250 MG/250 ML PIGGYBACK 160 MG IV (10:46)
[2024-11-15] MEDS: sodium chloride 0.9% 1,000 ML 30 ML IV (10:47)
--- NOTE | 2024-11-15 11:03 | PC.NURSE ---
spoke with provider about wound care and possible dressing changes, Provider instruction to not change the dressing no need to remove until surgery tomorrow
[2024-11-15 11:26] LABS: Glucose Point of Care 280 mg/dL (70-110)
[2024-11-15 11:27] LABS: Glucose Point of Care 383 mg/dL (70-110)
[2024-11-15 11:45] LABS: Glucose Point of Care 312 mg/dL (70-110)
[2024-11-15 11:45] LABS: Glucose Point of Care 376 mg/dL (70-110)
[2024-11-15 11:45] LABS: Glucose Point of Care 274 mg/dL (70-110)
[2024-11-15 11:45] LABS: Glucose Point of Care 321 mg/dL (70-110)
[2024-11-15 11:45] LABS: Glucose Point of Care 489 mg/dL (70-110)
[2024-11-15 12:15] LABS: Glucose Point of Care 319 mg/dL (70-110)
--- NOTE | 2024-11-15 13:56 | ANE.PACU2 ---
Inpatient post-anesthesia follow up: Airway intact: Yes Vital signs: Temperature 96.6 F Pulse Rate 112 Respiratory Rate 15 Blood Pressure 117/61 Pulse Oximetry 98 Oxygen Delivery Me thod [ Room Air Current Rate & Del vanessa] Oxygen Delivery Me thod Room Air Oxygen Flow Rate 2 Fraction of Inspir ed Oxygen Hydration adequate: Yes Nausea and vomiting: No Pain level: 4 Mental status: Baseline
--- NOTE | 2024-11-15 14:45 | PC.NURSE ---
Addendum entered by Oneyda Zuleta LPN 11/15/24 15:47: Pt up to med surg floor, room 278-2, at 1515. This nurse assumed care of pt at this time. Original Note: This nurse took report from LARA Mckinley in ICU at 1445.
--- NOTE | 2024-11-15 16:38 | P.PN_ITS ---
Subjective 2 Subjective: patient is afebrile, hemodynamically stable. States that pain is better compared to admission. Plan to be taken back to the OR tomorrow. Creatinine improving at 1.2. Blood cx positive for GPC clusters. Urine cx with GNR Medications: Reviewed: Yes Vitals/I&O/Wt Last Vital Signs Temp 97.6 F 11/15/24 16:00 Pulse 53 L 11/15/24 16:00 Resp 17 11/15/24 16:00 BP 108/69 11/15/24 16:00 Pulse Ox 95 11/15/24 16:00 O2 Del Method Room Air 11/15/24 16:00 O2 Flow Rate 2 11/14/24 14:45 11/15/24 11/15/24 11/15/24 06:59 14:59 22:59 Intake Total 300.15 / 1830.15 2293.0 / 2293.0 0 / 2293.0 Output Total 3500 / 3500 500 / 500 Balance -3199.85 / -1669.85 1793.0 / 1793.0 0 / 1793.0 Weight last 48 hrs Weight 151.953 kg Weight 152 kg Weight 154.221 kg Physical Exam 2 Narrative: General: No acute distress, AO x3 HEENT: PERRLA, pupils bilaterally equal and reactive, pallors not present Chest: Normal vesicular breath sounds, no added sounds, equal good air entry bilaterally CVS: S1-S2 regular, no murmurs, no tachycardia, no gallops, no rubs Abdomen: Soft, nontender, no organomegaly, bowel sounds present Neuro: No focal deficits, no facial deformity, AO x3, power 5/5 in all limbs Urinary Catheter Management: Moss: Cath Placed During This Visit: yes Reason for Continuing Indwelling Catheter: Accurate Measurement of Urinary Output in Critically Ill Patients Urinary Catheter Date of Insertion: 11/14/24 Urinary Catheter Time of Insertion: 13:30 Data 11/15/24 04:10 11/15/24 04:10 Micro: Microbiology 11/14/24 16:35 Anaerobic Culture - Preliminary Vaginal Wound Culture - Preliminary 11/14/24 09:32 Blood Culture - Preliminary Blood NEGATIVE TO DATE 11/14/24 10:34 Urine Culture - Preliminary Urine,Clean Catch Gram Negative Rods 11/14/24 09:35 Blood Culture - Preliminary Blood NAME: Essie Garcia LOC: [facility] #: [id number] AGE/SX: 49/F ROOM: [facility] R E11/14/[address]: Lashay Andrews MD : 1975 BED: 2 D IS: FAX #: STATUS: ADM IN [facility]: Spec #: [id number] Kyler: 11/14/24 Status: RES Req #: [id number] Recd: 11/14/[address]: Valarie Addison Src: Blood SpDesc: Ordered: Bcult Procedure Result Verified Site Blood Culture Preliminary 11/15/24-419 1 OF 3 BOTTLES POSITIVE DIRECT GRAM STAIN: GRAM POSITIVE COCCI IN CLUSTERS RESULTS TO FOLLOW CRITICAL RESULT YES/NO: YES CRITICAL CALLED BY: MARY TO AND READ BACK BY: ROLANDO DATE: 11/15/24 TIME: 419 Blood Culture Preliminary (changed) 11/14/24 SPECIMEN COLLECTED NAME: Essie Garcia LOC: [facility] #: [id number] AGE/SX: 49/F ROOM: [facility] R E11/14/[address]: Lashay Andrews MD : 1975 BED: 2 D IS: FAX #: STATUS: ADM IN [facility]: Spec #: [id number] Kyler: 11/14/24-1034 Status: RES Req #: [id number] Recd: 11/14/24-[address]: Valarie Addison Src: Urine CC SpDesc: Ordered: UC Procedure Result Verified Site Urine Culture Preliminary 11/15/240848 Organism 1 Gram Negative Rods [place] Count >100,000 CFU/ml DAY 1, RESULTS TO FOLLOW A&P Assessment and plan (1) Necrotizing fasciitis: 49F with recent steroid use presented to the hospital with 2 days of worsening genital swelling. Found to have large vulvar abscess extending from the mons pubis to the perianal region. Large abscess cavity approximately 45 cm x 15 cm x 20 cm in depth. IntraOp notes detail and necrotic coagulum deep in the abscess cavity and malodorous purulent material. There was extensive tissue induration. Status post I&D and packing of the right vulvar abscess on November 14, 2024. Currently on empiric antibiotic coverage with piperacillin/tazobactam and vancomycin. Blood culture from admission resulted positive for gram-positive cocci in clusters pending further identification. Repeat blood cultures ordered for tomorrow morning. Urine culture showing gram-negative rods. As is anticipated, likely to be a polymicrobial infection WBC count at 21,000. Patient appears to be clinically better. She is currently afebrile. States she had a fever of 103 Fahrenheit at home. She is planned to be taken back to the OR tomorrow for repeat debridement. N.p.o. after midnight for the same. Wound care recommendations per [employer] DEVELOPER and surgery. Will set up with wound care clinic as outpatient after discharge. (2) History of recent steroid use: Patient history of steroid use for nodular scleritis. Patient states she is an autoimmune workup as an outpatient. Does not have any formal diagnosis as yet. Hold off steroids as has recently completed her taper. Denies any current eye complaints. (3) Gram-positive cocci bacteremia: Gram-positive cocci bacteremia, awaiting further identification, source is perineal abscess and cellulitis. (4) UTI (urinary tract infection): Again source likely to be perineal abscess and cellulitis with ascending infection of the urinary tract. (5) Chronic venous insufficiency: Longstanding chronic venous insufficiency Started on prophylactic anticoagulation today No known history of DVT. (6) Diabetes mellitus: New diagnosis. HbA1c at 8. High-dose insulin sliding scale for now. Will add Lantus after ascertaining 24-hour insulin requirements. Plan to discharge on oral hypoglycemic agents. (7) Vulvar abscess: Status post I&D as noted above (8) Acute kidney injury: Currently improving, creatinine down from 1.8-1.2. Urine output over 4000 cc. (9) Hyperkalemia: Potassium at 5.2 this morning. Received 10 units of regular insulin this morning. Recheck CMP in the afternoon at 4 PM. Plan Hold metoprolol 2/2 bradycardia DVT ppx: Lovenox 40 s/c Full code Attestations 2 Medical Necessity Statement*: Continued admission for bacteremia, abscess, iv abx Coding Level of Care Code Acute Code for Chg Fwd High MDM includes number and complexity of problems actively addressed during encounter, amount and/or complexity of data reviewed/ordered and described risk of complication, morbidity or mortality of management as documented Diagnoses Necrotizing fasciitis M72.6 History of recent steroid use Z92.241 Gram-positive cocci bacteremia R78.81 UTI (urinary tract infection) N39.0 Chronic venous insufficiency I87.2 Diabetes mellitus E11.9 Vulvar abscess N76.4 Acute kidney injury N17.9 Hyperkalemia E87.5
--- NOTE | 2024-11-15 16:57 | USR_ITS ---
PROCEDURE INFORMATION: Exam: US Duplex Lower Extremity Veins, Bilateral Exam date and time: 11/15/2024 5:29 PM Age: 49 years old Clinical indication: Screening exam; Screening for SX; Additional info: Assess for dvt TECHNIQUE: Imaging protocol: Real-time duplex ultrasound of the bilateral extremities with 2-D wing scale, color Doppler flow and spectral waveform analysis including responses to compression and other maneuvers (when performed) with image documentation. Complete exam focused on the lower extremity veins. COMPARISON: MR knee LT wo con* [id number] 08/28/2023 7:09 AM FINDINGS: Right deep veins: Unremarkable. The common femoral, femoral, proximal profunda femoral, popliteal, posterior tibial and peroneal veins are patent without thrombus. Normal Doppler waveforms. Normal compressibility and/or augmentation response. Left deep veins: Unremarkable. The common femoral, femoral, proximal profunda femoral, popliteal, posterior tibial and peroneal veins are patent without thrombus. Normal Doppler waveforms. Normal compressibility and/or augmentation response. Superficial veins: Greater saphenous veins at the saphenofemoral junctions are patent bilaterally without thrombus. Soft tissues: Unremarkable. US/[place] [id number] IMPRESSION: No sonographic evidence of deep venous thrombosis.
[2024-11-15 17:00] LABS: Glucose Point of Care 277 mg/dL (70-110)
[2024-11-15 17:51] LABS: Alanine Aminotransferase 42 U/L (0-33); Albumin Level 3.3 g/dL (3.5-5.2); Alkaline Phosphatase 132 U/L (35-105); Aspartate Amino Transferase 22 U/L (0-32); Blood Urea Nitrogen 17 mg/dL (6-20); Calcium 9.5 mg/dL (8.5-10.5); Carbon Dioxide 23 mmol/L (22-29); Chloride 98 mmol/L (98-107); Creatinine Clr Calc Pharmacy 103.5214; Globulin 3.9 g/dL (1.3-4.6); Glomerular Filtration Rate 58.9 mL/min (90-130); Glucose 253 mg/dL (65-115); Osmolality Calculated 284 mOsm/kg (285-295); Sodium 132 mmol/L (136-145); Total Bilirubin 0.8 mg/dL (0.15-1.2); Total Protein 7.2 g/dL (6.6-8.7)
[2024-11-15 18:10] LABS: Anion Gap 15.8 (5-19); Potassium 4.8 mmol/L (3.5-5.1)
[2024-11-15] MEDS: enoxaparin 40 mg/0.4 mL Syringe SUBCUT (18:10)
[2024-11-15] MEDS: clotrimazole 1% cream 30 gm 1 APPLIC TOPICAL (18:10)
[2024-11-15 20:49] LABS: Glucose Point of Care 364 mg/dL (70-110)
[2024-11-15] MEDS: ALPRAZolam 0.5 mg Tablet 0.25 MG PO (21:01)
[2024-11-15] MEDS: ezetimibe 10 mg Tablet PO (21:01)
[2024-11-15] MEDS: insulin glargine 100 units/1 mL 10 UNIT SUBCUT (21:02)
[2024-11-15] MEDS: morphine 4 mg/mL SDV 1 mL 2 MG IVP (21:04)
[2024-11-15] MEDS: pramipexole 0.25 mg Tablet 0.5 MG PO (21:04)
[2024-11-15] MEDS: trazodone 50 mg Tablet 25 MG PO (23:09)
[2024-11-15] MEDS: vancomycin 1,250 MG/250 ML PIGGYBACK 166.67 MG IV (23:09)
[2024-11-16] VITALS (26 sets, daily range): BP systolic 104–183; BP diastolic 64–99; PULSE 50–74; RESP 15–18; TEMP 35.9–36.6; O2SAT 92–100; BMI 54.6
[2024-11-16] MEDS: piperacillin-tazobactam 3.375 GM in sodium chloride 0.9% (plus) 50 ML IV ×3 (02:06→20:53)
[2024-11-16] MEDS: ranolazine (12HR) 500 mg Tablet 1000 MG PO ×2 (05:31→17:06)
[2024-11-16 06:32] LABS: Basophils % 0.1 %; Hematocrit 45.8 % (36-47); Lymphocytes # 2.7 10^3/uL (0.8-4.8); Lymphocytes % 17.9 %; Mean Corpuscular HGB Conc 32.5 g/dL (30-55); Mean Corpuscular Hemoglobin 32.5 pg (27-33); Mean Corpuscular Volume 99.8 fl (85-98); Mean Platelet Volume 11.2 fL (7.4-10.4); Monocytes # 0.7 10^3/uL (0.2-0.9); Monocytes % 4.6 %; Neutrophils # 11.51 10^3/uL (1.8-7.7); Neutrophils % 76.5 %; Nucleated Red Blood Cells % 0 %; Platelet Count 131 10^3/cmm (157-399); Red Blood Count 4.59 10^6/uL (3.85-5.65); Red Cell Distribution Width 13.2 % (12.1-15.1); White Blood Count 15.04 10^3/uL (3.29-11.43)
[2024-11-16 06:45] LABS: Alanine Aminotransferase 41 U/L (0-33); Albumin Level 3.1 g/dL (3.5-5.2); Alkaline Phosphatase 130 U/L (35-105); Anion Gap 15.5 (5-19); Aspartate Amino Transferase 17 U/L (0-32); Blood Urea Nitrogen 15 mg/dL (6-20); Calcium 9.4 mg/dL (8.5-10.5); Carbon Dioxide 28 mmol/L (22-29); Chloride 97 mmol/L (98-107); Creatinine Clr Calc Pharmacy 94.7416; Globulin 3.8 g/dL (1.3-4.6); Glomerular Filtration Rate 52.8 mL/min (90-130); Glucose 196 mg/dL (65-115); Osmolality Calculated 288 mOsm/kg (285-295); Potassium 4.5 mmol/L (3.5-5.1); Sodium 136 mmol/L (136-145); Total Bilirubin 0.7 mg/dL (0.15-1.2); Total Protein 6.9 g/dL (6.6-8.7)
[2024-11-16 06:46] LABS: C Reactive Protein 147.2 mg/L (0.0-4.9)
[2024-11-16 06:49] LABS: Glucose Point of Care 233 mg/dL (70-110)
--- NOTE | 2024-11-16 08:03 | W.PM.OPSUD ---
Surgery/Procedure H&P Update DATE OF PROCEDURE: November 16, 2024 DATE H&P PERFORMED: 11/14/24 H&P UPDATE INFORMATION: I have reviewed H&P completed within last 30 days, I have examined patient prior to procedure and No changes to prior documentation PREOP DIAGNOSIS: right perineal abscess PLANNED PROCEDURE: Operation Date: 11/14/24 16:00 Proposed Procedures p Incision And Drainage vulvar abscess(Not Applicable) - Yovani Hurd MD Operation Date: 11/16/24 08:00 Proposed Procedures p Incision And Drainage Perineum(Not Applicable) - Yovani Hurd MD
--- NOTE | 2024-11-16 09:05 | PM.OP ---
Operative Report Date of procedure: November 16, 2024 Pre-op diagnosis: Right vulvar abscess Post-op diagnosis: same Post-op findings: Right vulvar abscess cavity extending from mons pubis to perianal region Large abscess cavity, approximately 12 cm in length, 8 cm in width, 10 cm in depth + necrotic coagulum deep in abscess cavity + malodorous purulent material + tissue induration Procedure done: Irrigation and re-packing of Right Vulvar abscess cavity Debridement of right vulvar abscess cavity Specimens removed/disposition: none Surgeon: Yovani Hurd MD Anesthesia: MAC Estimated blood loss (mL): 0 Complications: none Findings: Right vulvar abscess cavity extending from mons pubis to perianal region Large abscess cavity, approximately 12 cm in length, 8 cm in width, 10 cm in depth + necrotic coagulum deep in abscess cavity + malodorous purulent material + tissue induration Condition: stable Disposition: floor Brief History: 49 y.o. admitted November 14, 2024 with large right vulvar abscess s/p incision, drainage, debridement and packing of right vular abscess November 14, 2024 now for cleaning, debridement, and re-packing of abscess cavity Procedure: Informed consent was obtained for irrigation, debridement, and re-packing of right vulvar abscess cavity. The patient was taken to the OR and placed on the table. General anesthesia was given. Patient was then placed in dorsolithotomy position. The perineum was prepped and draped in the usual sterile fashion. The packing from the right vulvar abscess cavity was removed. The abscess cavity was explored. A small amount of necrotic coagulum was removed, revealing underlying healthy tissue. Minimal purulent discharge can be seen. The abscess cavity was copiously irrigated with hydrogen peroxide. The cavity was then packed with betadine-soaked gauze. The patient was then placed supine, awakened, and taken to the RR in good condition. Postoperative condition: good Blood loss: 0 cc Complications: none Sponge and instrument counts correct x two
[2024-11-16] MEDS: fentaNYL 50 mcg/mL INJ 2mL IVP (09:19)
--- NOTE | 2024-11-16 09:59 | PC.NURSE ---
Pt returns from OR to room. VSS. at bedside.
[2024-11-16] MEDS: ARIPiprazole 2 mg Tablet PO (10:40)
[2024-11-16] MEDS: pantoprazole DR 40 mg Tablet PO (10:40)
[2024-11-16] MEDS: venlafaxine ER (24HR) 75 mg Capsule PO (10:40)
[2024-11-16] MEDS: levothyroxine 150 mcg Tablet PO (10:40)
[2024-11-16 11:04] LABS: Glucose Point of Care 361 mg/dL (70-110)
[2024-11-16 11:15] LABS: Vancomycin Trough 11.6 ug/mL (10-15)
[2024-11-16] MEDS: insulin lispro 100 unit/1 mL SUBCUT ×3 (11:34→20:55)
[2024-11-16] MEDS: vancomycin 1,500 MG/300 ML PIGGYBACK 200 MG IV ×2 (11:48→23:26)
[2024-11-16] MEDS: sucralfate 1 gm Tablet PO ×3 (13:07→20:54)
[2024-11-16] MEDS: albuterol 2.5 mg/3 mL Neb INHALATION ×2 (13:54→20:45)
--- NOTE | 2024-11-16 14:20 | PM.PN ---
Subjective Subjective: Afebrile, leukocytosis down to 15,000 today. She has had further debridement today. Wound appears to be healing overall. Medications: Reviewed: Yes Vitals/I&O/Wt Last Vital Signs Temp 97.5 F L 11/16/24 12:53 Pulse 74 11/16/24 13:57 Resp 18 11/16/24 13:57 BP 108/71 11/16/24 12:53 Pulse Ox 95 11/16/24 13:57 O2 Del Method Room Air 11/16/24 13:57 O2 Flow Rate 2 11/14/24 14:45 11/15/24 11/16/24 11/16/24 22:59 06:59 14:59 Intake Total 250 / 2543.0 1900 / 4443.0 540 / 540 Output Total 1225 / 1725 3150 / 4875 0 / 0 Balance -975 / 818.0 -1250 / -432.0 540 / 540 Weight last 48 hrs Weight 153.569 kg Weight 151.953 kg Weight 152 kg Physical Exam Narrative: General: No acute distress, AO x3 HEENT: PERRLA, pupils bilaterally equal and reactive, pallors not present Chest: Normal vesicular breath sounds, no added sounds, equal good air entry bilaterally CVS: S1-S2 regular, no murmurs, no tachycardia, no gallops, no rubs Abdomen: Soft, nontender, no organomegaly, bowel sounds present Neuro: No focal deficits, no facial deformity, AO x3, power 5/5 in all limbs Urinary Catheter Management: Moss: Cath Placed During This Visit: yes Reason for Continuing Indwelling Catheter: Required Immobilization for Trauma or Surgery or Anesthesia Urinary Catheter Date of Insertion: 11/14/24 Urinary Catheter Time of Insertion: 13:30 Data 11/16/24 06:05 11/16/24 06:05 Micro: Microbiology 11/14/24 16:35 Gram Stain - Final Vaginal Anaerobic Culture - Preliminary Wound Culture - Preliminary 11/14/24 09:35 Blood Culture - Preliminary Blood Staphylococcus species 11/14/24 10:34 Urine Culture - Final Urine,Clean Catch Escherichia coli 11/16/24 05:59 Blood Culture - Preliminary Blood SPECIMEN COLLECTED 11/16/24 06:05 Blood Culture - Preliminary Blood SPECIMEN COLLECTED 11/14/24 09:32 Blood Culture - Preliminary Blood NEGATIVE TO DATE NAME: Essie Garcia #: [id number] LOC: [facility] #: [id number] AGE/SX: 49/F ROOM: [facility] RE11/14/[address]: Lashay Michaud MD : 1975 BED: 2 DIS: FAX #: STATUS: ADM IN TLOC: Spec #: [id number] Kyler: 11/14/241635 Status: RES Req #: [id number] Recd: 11/14/241726 Sub Dr: Yovani Hurd MD Src: Vaginal SpDesc: Ordered: WC and GS, Anaer Comments: Comment vulvar abscess Procedure Result Verified Site Gram Stain Final 11/16/24-1239 Result FEW GRAM POSITIVE RODS FEW YEAST Anaerobic Culture Preliminary 11/16/24-1128 NO ANAEROBES ISOLATED ON DAY 2 Anaerobic Culture Preliminary (changed) 11/15/24-1210 NO ANAEROBES ISOLATED ON DAY 1 Wound Culture Preliminary 11/16/24-1239 FEW NORMAL VAGINAL JEET ON DAY 2 Wound Culture Final (changed) 11/16/24-124 FEW NORMAL VAGINAL JEET ON DAY 2 Wound Culture Preliminary (changed) 11/15/24-1150 NO GROWTH AFTER 1 DAY NAME: Nat Garciay Juaquin LOC: [facility] #: [id number] AGE/SX: 49/F ROOM: [facility] RE11/14/[address]: Lashay Michaud MD : 1975 BED: 2 DIS: FAX #: STATUS: ADM IN TLOC: Spec #: [id number] Kyler: 11/14/244 Status: COMP Req #: [id number] Recd: 11/14/241105 Sub Dr: Valarie Addison Src: Urine CC SpDesc: Ordered: UC Procedure Result Verified Site Urine Culture Final 11/16/24 Organism 1 Escherichia coli [place] Count >100,000 CFU/ml DAY 2 E coli M.I.C. RX --------- ------ * Amikacin <=16 S * Amoxicillin/Clavulanate <=8/4 S * Ampicillin <=8 S * Ampicillin/Sulbactam <=8/4 S * Aztreonam <=4 S * Cefepime <=8 S * Ceftriaxone <=1 S * Cefuroxime <=4 S * Ciprofloxacin >2 R * Gentamicin <=2 S * Imipenem <=1 S * Levofloxacin >4 R * Nitrofurantoin <=32 S * Tetracycline >8 R * Trimethoprim/Sulfamethoxazole >2/38 R * Piperacillin/Tazobactam <=16 S Urine Culture Preliminary (changed) 11/15/24 Organism 1 Gram Negative Rods [place] Count >100,000 CFU/ml DAY 1, RESULTS TO FOLLOW NAME: Essie Garcia LOC: [facility] U #: [id number] AGE/SX: 49/F ROOM: [facility] RE11/14/[address]: Lashay Michaud MD : 1975 BED: 2 DIS: FAX #: STATUS: ADM IN TLOC: Spec #: [id number] Kyler: 11/14/24 Status: RES Req #: [id number] Recd: 11/14/[address]: Valarie Addison Src: Blood SpDesc: Ordered: Bcult Procedure Result Verified Site Blood Culture Preliminary 11/16/24 1 OF 3 BOTTLES POSITIVE DIRECT GRAM STAIN: GRAM POSITIVE COCCI IN CLUSTERS Detection of mecA indicates presence of Methicillin Resistant Staphylococcus spp. RESULTS TO FOLLOW Organism 1 Staphylococcus species Growth 1 BOTTLE CRITICAL RESULT YES/NO: YES CRITICAL CALLED BY: MARY TO AND READ BACK BY: ROLANDO DATE: 11/15/24 TIME: 0420 2ND CRITICAL RES YES/NO: YES 2ND CRITICAL CALLED BY: RT 2ND TO AND READ BACK BY: DR MICHAUD DATE: 11/16/24 2ND CRITICAL TIME: 1054 Blood Culture Preliminary (changed) 11/15/24-419 1 OF 3 BOTTLES POSITIVE DIRECT GRAM STAIN: GRAM POSITIVE COCCI IN CLUSTERS RESULTS TO FOLLOW CRITICAL RESULT YES/NO: YES CRITICAL CALLED BY: MARY TO AND READ BACK BY: ROLANDO DATE: 11/15/24 TIME: 0420 Blood Culture Preliminary (changed) 11/14/24-946 SPECIMEN COLLECTED A&P Assessment and plan (1) Necrotizing fasciitis: 49F with recent steroid use presented to the hospital with 2 days of worsening genital swelling. Found to have large vulvar abscess extending from the mons pubis to the perianal region. Large abscess cavity approximately 45 cm x 15 cm x 20 cm in depth. IntraOp notes detail and necrotic coagulum deep in the abscess cavity and malodorous purulent material. There was extensive tissue induration. Status post I&D and packing of the right vulvar abscess on November 14, 2024. Currently on empiric antibiotic coverage with piperacillin/tazobactam and vancomycin. Blood culture from admission resulted positive for gram-positive cocci in clusters pending further identification. Repeat blood cultures ordered for tomorrow morning. Urine culture showing gram-negative rods. As is anticipated, likely to be a polymicrobial infection WBC count at 21,000. Patient appears to be clinically better. She is currently afebrile. States she had a fever of 103 Fahrenheit at home. She is planned to be taken back to the OR tomorrow for repeat debridement. N.p.o. after midnight for the same. Wound care recommendations per [employer]NAGER and surgery. Will set up with wound care clinic as outpatient after discharge. (2) History of recent steroid use: Patient history of steroid use for nodular scleritis. Patient states she is an autoimmune workup as an outpatient. Does not have any formal diagnosis as yet. Hold off steroids as has recently completed her taper. Denies any current eye complaints. (3) Gram-positive cocci bacteremia: Gram-positive cocci bacteremia, awaiting further identification, source is perineal abscess and cellulitis. (4) UTI (urinary tract infection): Again source likely to be perineal abscess and cellulitis with ascending infection of the urinary tract. (5) Chronic venous insufficiency: Longstanding chronic venous insufficiency Started on prophylactic anticoagulation today No known history of DVT. (6) Diabetes mellitus: New diagnosis. HbA1c at 8. High-dose insulin sliding scale for now. Will add Lantus after ascertaining 24-hour insulin requirements. Plan to discharge on oral hypoglycemic agents. (7) Vulvar abscess: Status post I&D as noted above (8) Acute kidney injury: Currently improving, creatinine down from 1.8-1.2. Urine output over 4000 cc. (9) Hyperkalemia: Potassium at 5.2 this morning. Received 10 units of regular insulin this morning. Recheck CMP in the afternoon at 4 PM. Plan Hold metoprolol 2/2 bradycardia DVT ppx: Lovenox 40 s/c Full code November 16, 2024. Leukocytosis is improving. Gram-positive cocci in clusters from blood cultures has been identified as MEC A+ Staphylococcus species based on PCR. This is not Staph aureus per PCR. Likely passenger service representative of coag negative staph which might be a contaminant. Awaiting further identification from the lab. Or culture with few gram-positive rods and yeast. Metoprolol hold appears to have been released during transfer. Will placed on hold again due to bradycardia. Discontinue lisinopril which was also resumed given patient is currently recovering from acute kidney injury. Creatinine at 1.1 today. Adequate urine output. Continue resumed dose of Imdur 120 mg p.o. daily. Discontinue celecoxib due to MOUSTAPHA. Will aim to resume at discharge. Patient had a second debridement in the OR today. Wound appears to be healing overall. Continue piperacillin/tazobactam and vancomycin for empiric coverage while blood culture isolate is identified. If gram-positive cocci from the blood turns out to be a contaminant, will aim to discharge patient with oral antibiotics and follow-up with wound care.repeat blood cx taken this morning. Attestations Medical Necessity Statement*: continued admission for iv abx, next debridement planned for Thursday Coding Level of Care Code Acute Code for Chg Fwd High MDM includes number and complexity of problems actively addressed during encounter, amount and/or complexity of data reviewed/ordered and described risk of complication, morbidity or mortality of management as documented Diagnoses Necrotizing fasciitis M72.6 History of recent steroid use Z92.241 Gram-positive cocci bacteremia R78.81 UTI (urinary tract infection) N39.0 Chronic venous insufficiency I87.2 Diabetes mellitus E11.9 Vulvar abscess N76.4 Acute kidney injury N17.9 Hyperkalemia E87.5
[2024-11-16 17:01] LABS: Glucose Point of Care 462 mg/dL (70-110)
[2024-11-16] MEDS: clotrimazole 1% cream 30 gm 1 APPLIC TOPICAL (17:05)
[2024-11-16] MEDS: enoxaparin 40 mg/0.4 mL Syringe SUBCUT (17:06)
[2024-11-16 19:53] LABS: Glucose Point of Care 452 mg/dL (70-110)
[2024-11-16] MEDS: ALPRAZolam 0.5 mg Tablet 0.25 MG PO (19:53)
[2024-11-16] MEDS: budesonide 0.5 mg/2 mL Neb INHALATION (20:45)
[2024-11-16] MEDS: trazodone 50 mg Tablet 25 MG PO (20:54)
[2024-11-16] MEDS: ezetimibe 10 mg Tablet PO (20:54)
[2024-11-16] MEDS: insulin glargine 100 units/1 mL 10 UNIT SUBCUT (21:03)
[2024-11-16] MEDS: HYDROcodone-acetaminophen 5-325 mg Tablet 1 TAB PO (23:27)
[2024-11-17] VITALS (17 sets, daily range): BP systolic 104–177; BP diastolic 69–102; PULSE 50–68; RESP 15–18; TEMP 36.3–36.6; O2SAT 93–99
[2024-11-17] MEDS: piperacillin-tazobactam 3.375 GM in sodium chloride 0.9% (plus) 50 ML IV ×3 (04:01→21:25)
[2024-11-17] MEDS: ranolazine (12HR) 500 mg Tablet 1000 MG PO ×2 (05:50→21:26)
[2024-11-17 06:31] LABS: Basophils % 0.1 %; Hematocrit 42.9 % (36-47); Lymphocytes # 2.2 10^3/uL (0.8-4.8); Lymphocytes % 21.2 %; Mean Corpuscular HGB Conc 32.4 g/dL (30-55); Mean Corpuscular Hemoglobin 32.7 pg (27-33); Mean Corpuscular Volume 100.9 fl (85-98); Mean Platelet Volume 11.3 fL (7.4-10.4); Monocytes # 0.5 10^3/uL (0.2-0.9); Monocytes % 5.2 %; Neutrophils # 7.42 10^3/uL (1.8-7.7); Neutrophils % 72.7 %; Nucleated Red Blood Cells % 0 %; Platelet Count 118 10^3/cmm (157-399); Red Blood Count 4.25 10^6/uL (3.85-5.65); Red Cell Distribution Width 13.5 % (12.1-15.1)
[2024-11-17 06:35] LABS: Glucose Point of Care 304 mg/dL (70-110)
[2024-11-17 06:50] LABS: Alanine Aminotransferase 39 U/L (0-33); Alkaline Phosphatase 131 U/L (35-105); Anion Gap 13.6 (5-19); Aspartate Amino Transferase 21 U/L (0-32); Blood Urea Nitrogen 12 mg/dL (6-20); Carbon Dioxide 24 mmol/L (22-29); Chloride 100 mmol/L (98-107); Creatinine Clr Calc Pharmacy 116.6915; Globulin 3.7 g/dL (1.3-4.6); Glomerular Filtration Rate 66.5 mL/min (90-130); Glucose 293 mg/dL (65-115); Osmolality Calculated 287 mOsm/kg (285-295); Potassium 4.6 mmol/L (3.5-5.1); Sodium 133 mmol/L (136-145); Total Bilirubin 0.5 mg/dL (0.15-1.2); Total Protein 6.7 g/dL (6.6-8.7)
[2024-11-17] MEDS: albuterol 2.5 mg/3 mL Neb INHALATION (08:15)
[2024-11-17] MEDS: budesonide 0.5 mg/2 mL Neb INHALATION (08:15)
[2024-11-17] MEDS: pantoprazole DR 40 mg Tablet PO (09:11)
[2024-11-17] MEDS: venlafaxine ER (24HR) 75 mg Capsule PO (09:11)
[2024-11-17] MEDS: ARIPiprazole 2 mg Tablet PO (09:11)
[2024-11-17] MEDS: sucralfate 1 gm Tablet PO ×2 (09:11→21:25)
[2024-11-17] MEDS: levothyroxine 150 mcg Tablet PO (09:11)
[2024-11-17] MEDS: FUROsemide 40 mg Tablet PO (09:11)
[2024-11-17] MEDS: insulin lispro 100 unit/1 mL SUBCUT ×3 (09:32→21:41)
--- NOTE | 2024-11-17 10:08 | PC.NURSE ---
This nurse assumed care of pt from Berkley,JULIO at 1010am.
[2024-11-17] MEDS: vancomycin 1,500 MG/300 ML PIGGYBACK 200 MG IV ×2 (10:36→23:58)
[2024-11-17 10:49] LABS: Glucose Point of Care 410 mg/dL (70-110)
[2024-11-17] MEDS: morphine 4 mg/mL SDV 1 mL 2 MG IVP (14:31)
--- NOTE | 2024-11-17 15:09 | P.PN_ITS ---
Subjective 2 Subjective: Afebrile, leukocytosis now resolved. Pain increased this am Medications: Reviewed: Yes Vitals/I&O/Wt Last Vital Signs Temp 97.8 F 11/17/24 11:29 Pulse 50 L 11/17/24 11:29 Resp 18 11/17/24 14:31 BP 104/70 11/17/24 11:29 Pulse Ox 99 11/17/24 14:31 O2 Del Method Room Air 11/17/24 11:29 O2 Flow Rate 2 11/14/24 14:45 11/17/24 11/17/24 11/17/24 06:59 14:59 22:59 Intake Total 830 / 3380 590 / 590 Output Total 2600 / 5800 Balance -1770 / -2420 590 / 590 Weight last 48 hrs Weight 155.446 kg Weight 153.569 kg Physical Exam 2 Narrative: General: No acute distress, AO x3 HEENT: PERRLA, pupils bilaterally equal and reactive, pallors not present Chest: Normal vesicular breath sounds, no added sounds, equal good air entry bilaterally CVS: S1-S2 regular, no murmurs, no tachycardia, no gallops, no rubs Abdomen: Soft, nontender, no organomegaly, bowel sounds present Neuro: No focal deficits, no facial deformity, AO x3, power 5/5 in all limbs Urinary Catheter Management: Moss: Cath Placed During This Visit: yes Reason for Continuing Indwelling Catheter: Required Immobilization for Trauma or Surgery or Anesthesia Urinary Catheter Date of Insertion: 11/14/24 Urinary Catheter Time of Insertion: 13:30 Data 11/17/24 06:02 11/17/24 06:02 Micro: Microbiology 11/14/24 16:35 Gram Stain - Final Vaginal Anaerobic Culture - Preliminary Wound Culture - Final 11/16/24 06:05 Blood Culture - Preliminary Blood NEGATIVE TO DATE 11/16/24 05:59 Blood Culture - Preliminary Blood NEGATIVE TO DATE 11/14/24 09:35 Blood Culture - Preliminary Blood Staphylococcus species A&P Assessment and plan (1) Necrotizing fasciitis: 49F with recent steroid use presented to the hospital with 2 days of worsening genital swelling. Found to have large vulvar abscess extending from the mons pubis to the perianal region. Large abscess cavity approximately 45 cm x 15 cm x 20 cm in depth. IntraOp notes detail and necrotic coagulum deep in the abscess cavity and malodorous purulent material. There was extensive tissue induration. Status post I&D and packing of the right vulvar abscess on November 14, 2024. Currently on empiric antibiotic coverage with piperacillin/tazobactam and vancomycin. Blood culture from admission resulted positive for gram-positive cocci in clusters pending further identification. Repeat blood cultures ordered for tomorrow morning. Urine culture showing gram-negative rods. As is anticipated, likely to be a polymicrobial infection WBC count at 21,000. Patient appears to be clinically better. She is currently afebrile. States she had a fever of 103 Fahrenheit at home. She is planned to be taken back to the OR tomorrow for repeat debridement. N.p.o. after midnight for the same. Wound care recommendations per [employer] and surgery. Will set up with wound care clinic as outpatient after discharge. (2) History of recent steroid use: Patient history of steroid use for nodular scleritis. Patient states she is an autoimmune workup as an outpatient. Does not have any formal diagnosis as yet. Hold off steroids as has recently completed her taper. Denies any current eye complaints. (3) Gram-positive cocci bacteremia: Gram-positive cocci bacteremia, awaiting further identification, source is perineal abscess and cellulitis. (4) UTI (urinary tract infection): Again source likely to be perineal abscess and cellulitis with ascending infection of the urinary tract. (5) Chronic venous insufficiency: Longstanding chronic venous insufficiency Started on prophylactic anticoagulation today No known history of DVT. (6) Diabetes mellitus: New diagnosis. HbA1c at 8. High-dose insulin sliding scale for now. Will add Lantus after ascertaining 24-hour insulin requirements. Plan to discharge on oral hypoglycemic agents. (7) Vulvar abscess: Status post I&D as noted above (8) Acute kidney injury: Currently improving, creatinine down from 1.8-1.2. Urine output over 4000 cc. (9) Hyperkalemia: Potassium at 5.2 this morning. Received 10 units of regular insulin this morning. Recheck CMP in the afternoon at 4 PM. Plan Hold metoprolol 2/2 bradycardia DVT ppx: Lovenox 40 s/c Full code November 16, 2024. Leukocytosis is improving. Gram-positive cocci in clusters from blood cultures has been identified as MEC A+ Staphylococcus species based on PCR. This is not Staph aureus per PCR. Likely patient admitting representative of coag negative staph which might be a contaminant. Awaiting further identification from the lab. Or culture with few gram-positive rods and yeast. Metoprolol hold appears to have been released during transfer. Will placed on hold again due to bradycardia. Discontinue lisinopril which was also resumed given patient is currently recovering from acute kidney injury. Creatinine at 1.1 today. Adequate urine output. Continue resumed dose of Imdur 120 mg p.o. daily. Discontinue celecoxib due to MOUSTAPHA. Will aim to resume at discharge. Patient had a second debridement in the OR today. Wound appears to be healing overall. Continue piperacillin/tazobactam and vancomycin for empiric coverage while blood culture isolate is identified. If gram-positive cocci from the blood turns out to be a contaminant, will aim to discharge patient with oral antibiotics and follow-up with wound care.repeat blood cx taken this morning. November 17, 2024 Leukocytosis now resolved. Afebrile. Patient is planned to return to the operating room today for another debridement. Reviewed operative notes from yesterday, wound appeared to be healing well overall. Will need packing likely within next 2 to 3 weeks. Appropriate disposition ongoing for the same. Bradycardia with baseline heart rate 50 to 55 bpm. Holding all beta-blockers at this present time. Blood pressure is well- maintained. Blood culture still with staph species, likely to be coag negative staph. If wound appears to be healing well upon return to the OR today, anticipate discharge in the upcoming 24 to 48 hours with oral antibiotics. Blood sugar continues to be uncontrolled. Ranging 300-400 in spite of high-dose sliding scale. Lantus currently at 10 units at nighttime, increased to 20 units at nighttime and monitor for response. patient will need extensive wound care post discharge Attestations 2 Medical Necessity Statement*: debridement today, disposition planning ongoing Coding Level of Care Code Acute Code for [facility] Fwd Diagnoses Necrotizing fasciitis M72.6 History of recent steroid use Z92.241 Gram-positive cocci bacteremia R78.81 UTI (urinary tract infection) N39.0 Chronic venous insufficiency I87.2 Diabetes mellitus E11.9 Vulvar abscess N76.4 Acute kidney injury N17.9 Hyperkalemia E87.5
--- NOTE | 2024-11-17 15:14 | PC.NURSE ---
Pt taken to OR via bed at 1512.
--- NOTE | 2024-11-17 15:47 | ANES.PREANE2 ---
Pre-Anesthetic Assessment Height/Weight: Height 1.68 m Weight 155.446 kg Temp Pulse Resp BP Pulse Ox O2 Del Method O2 Flow Rate 97.5 F L 55 L 18 147/78 97 Room Air 2 11/17/24 15:18 11/17/24 15:18 11/17/24 15:18 11/17/24 15:18 11/17/24 15:18 11/17/24 15:18 11/14/24 14:45 Preop Diagnosis: right perineal abscess Operation Date: 11/14/24 16:00 Proposed Procedures p Incision And Drainage vulvar abscess(Not Applicable) - Yovani Hurd MD Operation Date: 11/16/24 08:00 Proposed Procedures p Incision And Drainage Perineum(Not Applicable) - Yovani Hurd MD Operation Date: 11/17/24 16:10 Proposed Procedures p Incision And Drainage(Not Applicable) - Yovani Hurd MD Familial anesthetic complications: none Was Beta Keila taken within 24 hours: N/A Was Clonidine taken within 24 hours: N/A Social Tobacco and No alcohol Exam alert, oriented x 3 and regular rate & rhythm Airway Submandibular: within normal limits Cervical ROM: within normal limits Mallampati: Class II Dentition: false Pulmonary Chronic Obstructive Pulmonary Disease CV/HEM Coronary Artery Disease (CABG) and Hypertension Metabolic Diabetes Mellitus, Morbid Obesity and Thyroid Disease Neuropsych Anxiety and Depression Anesthetic Plan ASA status: 3 Anesthesia: General Medications/Allergies Home Medications Medication Instructions Recorded Confirmed Last Taken Type pramipexole 0.5 mg tablet 0.5 mg PO DAILY PRN Restless Leg(S) 04/04/22 11/14/24 06/16/24 History ranolazine 1,000 mg 1,000 mg PO Q12H 12/22/22 11/14/24 06/17/24 History tablet,extended release,12 hr celecoxib 100 mg capsule (Celebrex) 100 mg PO DAILY 12/17/23 11/14/24 06/17/24 History ezetimibe 10 mg tablet 10 mg PO BEDTIME 06/17/24 11/14/24 06/16/24 History lisinopril 10 mg tablet 10 mg PO DAILY #30 tabs 06/18/24 11/14/24 Unknown Rx evolocumab 140 mg/mL subcutaneous 140 mg SUBCUT Q14D 08/01/24 11/14/24 Unknown History pen injector (Repatha SureClick) alprazolam 0.25 mg tablet (Xanax) 0.25 mg PO DAILY PRN anxiety #15 08/09/24 11/14/24 Unknown Rx tabs budesonide-formoterol HFA 160 2 puff inhalation BID 08/29/24 11/14/24 Unknown History mcg-4.5 mcg/actuation aerosol inhaler (Symbicort) furosemide 40 mg tablet (Lasix) 40 mg PO DAILY 08/29/24 11/14/24 Unknown History omeprazole 40 mg capsule,delayed 40 mg PO BID 08/29/24 11/14/24 Unknown History release sucralfate 1 gram tablet 1 g PO .4 times daily 08/29/24 11/14/24 Unknown History isosorbide mononitrate 60 mg 120 mg PO DAILY 09/30/24 11/14/24 Unknown History tablet,extended release 24 hr aripiprazole 2 mg tablet (Abilify) 2 mg PO DAILY #30 tabs 10/28/24 11/14/24 Unknown Rx varenicline 1 mg tablet (Chantix 1 mg PO BID #56 tabs 10/28/24 11/14/24 Unknown Rx Continuing Month Box) venlafaxine 75 mg capsule,extended 75 mg PO DAILY #30 caps 11/10/24 11/14/24 Unknown Rx release 24 hr (Effexor XR) levothyroxine 150 mcg tablet 150 mcg PO DAILY 11/14/24 11/14/24 Unknown History metoprolol succinate 50 mg 50 mg PO DAILY 11/14/24 11/14/24 Unknown History tablet,extended release 24 hr triamcinolone acetonide 0.5 % 1 applic topical BID 11/14/24 11/14/24 Unknown History topical ointment Allergies Allergy/AdvReac Type Severity Reaction Status Date / Time codeine Allergy Unknown Unknown Verified 10/28/24 08:30 Current Medications Generic Name Dose Route Start Last Admin Trade Name Freq PRN Reason Stop Dose Admin Acetaminophen 650 mg 11/14/24 12:25 11/14/24 19:51 Acetaminophen 325 Mg Tablet PO 650 mg Q6H PRN Administration Mild/Mod Pain Or Temp >/= 101 Albuterol Sulfate 2.5 mg 11/16/24 15:51 11/17/24 08:15 Albuterol 2.5 Mg/3 Ml Neb INHALATION 2.5 mg QID.RESPIRATORY PRN Administration SHORTNESS OF BREATH Alprazolam 0.25 mg 11/14/24 12:39 11/16/24 19:53 Alprazolam 0.5 Mg Tablet PO 0.25 mg DAILY PRN Administration anxiety Aripiprazole 2 mg 11/15/24 09:00 11/17/24 09:11 Aripiprazole 2 Mg Tablet PO 2 mg DAILY PAPITO Administration Budesonide 0.5 mg 11/16/24 20:00 11/17/24 08:15 Budesonide 0.5 Mg/2 Ml Neb INHALATION 0.5 mg BID.RESPIRATORY PAPITO Administration Clotrimazole 1 applic 11/15/24 18:00 11/17/24 10:13 Clotrimazole 1% Cream 30 Gm TOPICAL Not Given BID PAPITO Ezetimibe 10 mg 11/14/24 21:00 11/16/24 20:54 Ezetimibe 10 Mg Tablet PO 10 mg BEDTIME PAPITO Administration Enoxaparin Sodium 40 mg 11/15/24 17:00 11/16/24 17:06 Enoxaparin 40 Mg/0.4 Ml Syringe SUBCUT 40 mg Q24H PAPITO Administration Furosemide 40 mg 11/17/24 09:00 11/17/24 09:11 Furosemide 40 Mg Tablet PO 40 mg DAILY PAPITO Administration Piperacillin Sod/Tazobactam 50 mls @ 12.5 mls/hr 11/14/24 18:30 11/17/24 12:12 Sod 3.375 gm/ Sodium Chloride IV 12.5 mls/hr Q8H PAPITO Administration Vancomycin HCl 1,500 mg in 300 mls @ 200 mls/hr 11/16/24 11:45 11/17/24 12:11 Vancocin IV Infused Q12H PAPITO Infusion Insulin Human Lispro 0 unit 11/15/24 12:00 11/17/24 12:12 Insulin Lispro 100 Unit/1 Ml SUBCUT 18 unit WM&BEDTIME PAPITO Administration Protocol Isosorbide Mononitrate 120 mg 11/17/24 09:00 11/17/24 10:13 Isosorbide Mononitrate Er 60 Mg Tablet PO Not Given DAILY PAPITO Levothyroxine Sodium 150 mcg 11/15/24 09:00 11/17/24 09:11 Levothyroxine 150 Mcg Tablet PO 150 mcg DAILY PAPITO Administration Metoprolol Succinate 50 mg 11/16/24 11:00 11/16/24 11:07 Metoprolol Succinate Er (24 Hr) 50 Mg Tablet PO Not Given DAILY PAPITO Pantoprazole Sodium 40 mg 11/15/24 09:00 11/17/24 09:[address] 40 Mg Tablet PO 40 mg DAILY PAPITO Administration Pramipexole Dihydrochloride 0.5 mg 11/14/24 12:39 11/15/24 21:04 Pramipexole 0.25 Mg Tablet PO 0.5 mg DAILY PRN Administration Restless Leg(S) Ranolazine 1,000 mg 11/14/24 18:00 11/17/24 05:50 Ranolazine (12hr) 500 Mg Tablet PO 1,000 mg Q12H PAPITO Administration Sucralfate 1 gm 11/16/24 13:00 11/17/24 11:53 Sucralfate 1 Gm Tablet PO Not Given QID PAPITO Trazodone HCl 25 mg 11/15/24 22:39 11/16/24 20:54 Trazodone 50 Mg Tablet PO 25 mg BEDTIME PRN Administration SLEEP Venlafaxine HCl 75 mg 11/15/24 09:00 11/17/24 09:11 Venlafaxine Er (24hr) 75 Mg Capsule PO 75 mg DAILY PAPITO Administration [facility] Anesthesia Medical History Nicotine use disorder History of coronary artery disease Unstable angina pectoris Unstable angina Obesity, morbid, BMI 50 or higher Unstable angina Panic disorder Generalized anxiety disorder Psychiatric care Anxiety GERD (gastroesophageal reflux disease) Hypothyroidism Coronary artery disease Surgical History History of cholecystectomy History of tonsillectomy History of tubal ligation History of hysterectomy History of coronary artery bypass graft Family History Other CAD (coronary artery disease) Stroke Social History Smoking and tobacco/nicotine status: current every day tobacco/nicotine user Alcohol intake: never Data Anesthesia 11/17/24 06:02 11/17/24 06:02 Short CBC 11/16/24 11/17/24 Range/Units 06:05 06:02 WBC 15.04 H 10.20 (3.29-11.43) 10^3/uL Hgb 14.90 13.90 (11.27-16.99) g/dL Hct 45.8 42.9 (36-47) % MCV 99.8 H 100.9 H (85-98) fl Plt Count 131 L 118 L (157-399) 10^3/cmm Neut % (Auto) 76.5 72.7 % Neut # (Auto) 11.51 H 7.42 (1.8-7.7) 10^3/uL BMP 11/15/24 11/16/24 11/17/24 17:25 06:05 06:02 Sodium 132 L 136 133 L Potassium 4.8 4.5 4.6 Chloride 98 97 L 100 Carbon Dioxide 23 28 24 BUN 17 15 12 Creatinine 1.0 H 1.1 H 0.9 Glucose 253 H 196 H 293 H Calcium 9.5 9.4 9.0 Liver Function 11/15/24 11/16/24 11/17/24 Range/Units 17:25 06:05 06:02 Total Bilirubin 0.8 0.7 0.5 (0.15-1.2) mg/dL AST 22 17 21 (0-32) U/L ALT 42 H 41 H 39 H (0-33) U/L Alkaline Phosphatase 132 H 130 H 131 H (35-105) U/L Albumin 3.3 L 3.1 L 3.0 L (3.5-5.2) g/dL Urine 11/14/24 Range/Units 10:34 Urine Color Dark yellow A (Yellow) Urine Appearance Clear (CLEAR) Urine pH 5.5 (5-7) Ur Specific [place] 1.021 (1.005-1.030) Urine Protein 1+ A (Negative) Urine Glucose (UA) 3+ H (Normal) Urine Ketones Negative (Negative) Urine Nitrate Positive A (Negative) Urine Bilirubin Negative (Negative) Ur Leukocyte Esterase Negative (Negative) Urine RBC 0-2 (0-2) /hpf Urine WBC 11-20 H (0-5) /hpf Coags 11/16/24 06:05 C-Reactive Protein 147.2 H Microbiology 11/14/24 16:35 Gram Stain - Final Vaginal Anaerobic Culture - Preliminary Wound Culture - Final 11/16/24 06:05 Blood Culture - Preliminary Blood NEGATIVE TO DATE 11/16/24 05:59 Blood Culture - Preliminary Blood NEGATIVE TO DATE 11/14/24 09:35 Blood Culture - Preliminary Blood Staphylococcus species Cardiac Studies: Echocardiogram 12/22/22
--- NOTE | 2024-11-17 16:04 | W.PM.OPSUD ---
Surgery/Procedure H&P Update DATE OF PROCEDURE: November 17, 2024 DATE H&P PERFORMED: 11/14/24 H&P UPDATE INFORMATION: I have reviewed H&P completed within last 30 days, I have examined patient prior to procedure and No changes to prior documentation PREOP DIAGNOSIS: right perineal abscess PLANNED PROCEDURE: Operation Date: 11/14/24 16:00 Proposed Procedures p Incision And Drainage vulvar abscess(Not Applicable) - Yovani Hurd MD Operation Date: 11/16/24 08:00 Proposed Procedures p Incision And Drainage Perineum(Not Applicable) - Yovani Hurd MD Operation Date: 11/17/24 16:10 Proposed Procedures p Incision And Drainage(Not Applicable) - Yovani Hurd MD
--- NOTE | 2024-11-17 16:59 | ANE.PACU2 ---
Inpatient post-anesthesia follow up: Airway intact: Yes Vital signs: Temperature 97.4 F Pulse Rate 68 Respiratory Rate 16 Blood Pressure 176/91 Pulse Oximetry 95 Oxygen Delivery Me thod [ Room Air Current Rate & Del vanessa] Oxygen Delivery Me thod Room Air Oxygen Flow Rate 2 Fraction of Inspir ed Oxygen Hydration adequate: Yes Nausea and vomiting: No Pain level: 2 Mental status: Baseline
--- NOTE | 2024-11-17 17:17 | PC.NURSE ---
This nurse took report from LARA Fritz in PACU at 1718.
[2024-11-17] MEDS: fentaNYL 50 mcg/mL INJ 2mL IVP (17:20)
--- NOTE | 2024-11-17 17:49 | PC.NURSE ---
Pt transferred back up to med surg floor, room 278-2, from OR via bed accompanied by LARA Cerda at 1740. This nurse assumed care of pt again at this time.
--- NOTE | 2024-11-17 17:51 | PM.OP ---
Operative Report Date of procedure: November 17, 2024 Pre-op diagnosis: Right vulvar abscess Post-op diagnosis: same Post-op findings: Right vulvar abscess cavity extending from mons pubis to perianal region Large abscess cavity, approximately 12 cm in length, 8 cm in width, 10 cm in depth + necrotic coagulum deep in abscess cavity + malodorous purulent material + tissue induration Procedure done: Irrigation and re-packing of Right Vulvar abscess cavity Debridement of right vulvar abscess cavity Surgeon: Yovani Hurd MD Anesthesia: MAC Estimated blood loss (mL): 0 Complications: none Findings: Right vulvar abscess cavity extending from mons pubis to perianal region Large abscess cavity, approximately 12 cm in length, 8 cm in width, 10 cm in depth + necrotic coagulum deep in abscess cavity + malodorous purulent material + tissue induration Condition: stable Disposition: floor Brief History: 49 y.o. admitted November 14, 2024 with large right vulvar abscess s/p incision, drainage, debridement and packing of right vular abscess November 14, 2024 now for cleaning, debridement, and re-packing of abscess cavity Procedure: Informed consent was obtained for irrigation, debridement, and re-packing of right vulvar abscess cavity. The patient was taken to the OR and placed on the table. General anesthesia was given. Patient was then placed in dorsolithotomy position. The perineum was prepped and draped in the usual sterile fashion. The packing from the right vulvar abscess cavity was removed. The abscess cavity was explored. A small amount of necrotic coagulum was removed, revealing underlying healthy tissue. Minimal purulent discharge can be seen. The abscess cavity was copiously irrigated with hydrogen peroxide. The cavity was then packed with betadine-soaked gauze. The patient was then placed supine, awakened, and taken to the RR in good condition. Postoperative condition: good Blood loss: 0 cc Complications: none Sponge and instrument counts correct x two
[2024-11-17 20:35] LABS: Glucose Point of Care 231 mg/dL (70-110)
[2024-11-17] MEDS: ezetimibe 10 mg Tablet PO (21:25)
[2024-11-17] MEDS: enoxaparin 40 mg/0.4 mL Syringe SUBCUT (21:25)
[2024-11-17] MEDS: ALPRAZolam 0.5 mg Tablet 0.25 MG PO (21:26)
[2024-11-17] MEDS: ketorolac 30 mg/mL INJ IVP (21:27)
[2024-11-17] MEDS: HYDROmorphone 1 mg/mL INJ 1 mL 0.5 MG IVP (21:28)
[2024-11-17] MEDS: trazodone 50 mg Tablet 25 MG PO (21:41)
[2024-11-17] MEDS: insulin glargine 100 units/1 mL 20 UNIT SUBCUT (21:47)
[2024-11-17 22:49] LABS: Vancomycin Trough 14.8 ug/mL (10-15)
[2024-11-18] VITALS: BP 167/89; PULSE 53; RESP 15; TEMP 36.4; O2SAT 96
[2024-11-18 04:00] VITALS: BP 146/84; PULSE 55; RESP 18; TEMP 36.6; O2SAT 95
[2024-11-18] MEDS: piperacillin-tazobactam 3.375 GM in sodium chloride 0.9% (plus) 50 ML IV (05:58)
[2024-11-18] MEDS: ketorolac 30 mg/mL INJ IVP (05:59)
[2024-11-18 06:00] VITALS: PULSE 52
[2024-11-18 06:25] LABS: Glucose Point of Care 107 mg/dL (70-110)
[2024-11-18 08:00] VITALS: BP 166/79; PULSE 55; RESP 12; TEMP 36.4; O2SAT 92
[2024-11-18] MEDS: budesonide 0.5 mg/2 mL Neb INHALATION (08:35)
[2024-11-18] MEDS: albuterol 2.5 mg/3 mL Neb INHALATION (08:35)
[2024-11-18 08:37] VITALS: PULSE 87; RESP 16; O2SAT 98
[2024-11-18] MEDS: venlafaxine ER (24HR) 75 mg Capsule PO (08:58)
[2024-11-18] MEDS: ranolazine (12HR) 500 mg Tablet 1000 MG PO (08:58)
[2024-11-18] MEDS: sucralfate 1 gm Tablet PO (08:58)
[2024-11-18] MEDS: pantoprazole DR 40 mg Tablet PO (08:58)
[2024-11-18] MEDS: metoprolol succinate ER (24 HR) 50 mg Tablet PO (08:58)
[2024-11-18] MEDS: levothyroxine 150 mcg Tablet PO (08:58)
[2024-11-18] MEDS: FUROsemide 40 mg Tablet PO (08:59)
[2024-11-18] MEDS: isosorbide mononitrate ER 60 mg Tablet 120 MG PO (08:59)
[2024-11-18] MEDS: ARIPiprazole 2 mg Tablet PO (08:59)
[2024-11-18 11:04] LABS: Glucose Point of Care 204 mg/dL (70-110)
--- NOTE | 2024-11-18 13:55 | P.DS_ITS ---
Discharge Providers Date of Admission: 11/14/24 13:16 Date of Discharge: November 18, 2024 Attending Provider at Admission: Lashay Andrews MD Attending Provider at Discharge: Lashay Andrews MD Primary Care Provider: JEAN Bess Diagnoses at Discharge Discharge Diagnosis (1) Necrotizing fasciitis: Status: Acute (2) History of recent steroid use: Status: Acute (3) Gram-positive cocci bacteremia: Status: Acute (4) UTI (urinary tract infection): Status: Acute (5) Chronic venous insufficiency: Status: Acute (6) Diabetes mellitus: Status: Acute (7) Vulvar abscess: Status: Acute (8) Acute kidney injury: Status: Acute (9) Hyperkalemia: Status: Acute Reason for Visit Reason for Visit: swelling in private areas Hospital Course Hospital Course 49-year-old lady with a past medical history of CAD, 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 Previously she had been experiencing some urinary incontinence related to multiple bouts of coughing and also has been suffering from candidiasis. She was diagnosed with a vulvar abscess and necrotizing fasciitis. She underwent incision and drainage for source control on November 14, 2024, and Nov 17. She was started on empiric antibiotic coverage with piperacillin/tazobactam and vancomycin which has been continued from admission until today. Her blood culture was reported as positive for Staphylococcus species 1 out of 3 bottles which has been identified as Staph hominis, most likely to be a contamination. Repeat blood cultures from the eighth are negative to date. Culture from the OR remain negative to date. Gram stain showed few gram-positive rods which have been identified as vaginal gaetano. Urine culture showed presence of E. coli sensitive to beta-lactam's. Patient responded well after source control with debridement and with IV antibiotics. At the time of discharge her leukocytosis is resolved. She has been afebrile. Antibiotics have been changed to Augmentin 875 mg p.o. twice daily over the next 10 days. Patient has been set up with wound care clinic with her first follow- up on November 21, 2024. Currently she has a packing in place, per discussion with GI and this can stay in place until her wound care follow-up on Thursday. Patient was also diagnosed with new diabetes mellitus, HbA1c of 8.0. Previously from June 2024 A1c was at 5.7. 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 Patient did require high-dose insulin sliding scale and 20 units of Lantus for blood sugar control in the hospital. At the time of discharge she has been started on Jardiance 10 mg p.o. daily and Lantus 10 units at nighttime. She is instructed to follow-up with her primary care provider in the next 10 to 14 days to assess her glycemic control on the above medications. I anticipate insulin use to be short-term given a previously normal HbA1c. At the time of discharge her dose of metoprolol was halved to 25 mg p.o. daily as she was noted to be bradycardic with heart rate between 50-55 and a dose of 50 mg that she takes at home. Physical Exam Narrative: General: No acute distress, AO x3 HEENT: PERRLA, pupils bilaterally equal and reactive, pallors not present Chest: Normal vesicular breath sounds, no added sounds, equal good air entry bilaterally CVS: S1-S2 regular, no murmurs, no tachycardia, no gallops, no rubs Abdomen: Soft, nontender, no organomegaly, bowel sounds present Neuro: No focal deficits, no facial deformity, AO x3, power 5/5 in all limbs EXT: genital exam with packing in place, not removed Urinary Catheter Management: Moss: Cath Placed During This Visit: yes, but has since been removed by the nurse Reason for Continuing Indwelling Catheter: Decision to DC Catheter Urinary Catheter Date of Insertion: 11/14/24 Urinary Catheter Time of Insertion: 13:30 Date Urinary Catheter Removed: 11/18/24 Time Urinary Catheter Discontinued: 11:35 Discharge Data Studies Completed and Pending Completed Studies During Hospitalization Category Date Time Status CT pelvis w con* [id number] Stat Cat Scan 11/14/24 09:14 Completed XR chest 1V portable [id number] Urgent Exams 11/14/24 09:55 [place] [id number] Routine Ultrasound 11/15/24 16:57 Completed Pending at discharge Category Date Time Status Anaerobic Culture Routine Lab 11/14/24 16:35 Results Blood Culture AM LABS Lab 11/16/24 05:59 Results Blood Culture Stat Lab 11/14/24 09:35 Results Wound Culture and Gram Stain Routine Lab 11/14/24 16:35 Results Radiology Impressions Pelvis CT 11/14/24 09:14 IMPRESSION: 1. Findings consistent with necrotizing fasciitis involving the RIGHT perineum. Extension of the fatty infiltration of the infection over the mons pubis. 2. No focal well formed abscess. Notified RODDY Valenzuela at 11/14/2024 10:41 AM. Chest X-Ray 11/14/24 09:55 IMPRESSION: Unremarkable portable chest. Venous Duplex 11/15/24 16:57 IMPRESSION: No sonographic evidence of deep venous thrombosis. Laboratory Results WBC 10.20 10^3/uL (3.29-11.43) 11/17/24 06:02 RBC 4.25 10^6/uL (3.85-5.65) 11/17/24 06:02 Hgb 13.90 g/dL (11.27-16.99) 11/17/24 06:02 Hct 42.9 % (36-47) 11/17/24 06:02 MCV 100.9 fl (85-98) H 11/17/24 06:02 MCH 32.7 pg (27-33) 11/17/24 06:02 MCHC 32.4 g/dL (30-55) 11/17/24 06:02 RDW 13.5 % (12.1-15.1) 11/17/24 06:02 Plt Count 118 10^3/cmm (157-399) L 11/17/24 06:02 MPV 11.3 fL (7.4-10.4) H 11/17/24 06:02 Neut % (Auto) 72.7 % 11/17/24 06:02 Lymph % (Auto) 21.2 % 11/17/24 06:02 Roosevelt % (Auto) 5.2 % 11/17/24 06:02 Eos % (Auto) 0.0 % 11/17/24 06:02 Baso % (Auto) 0.1 % 11/17/24 06:02 Neut # (Auto) 7.42 10^3/uL (1.8-7.7) 11/17/24 06:02 Lymph # (Auto) 2.2 10^3/uL (0.8-4.8) 11/17/24 06:02 Roosevelt # (Auto) 0.5 10^3/uL (0.2-0.9) 11/17/24 06:02 Eos # (Auto) 0.0 10^3/uL (0.0-0.8) 11/17/24 06:02 Baso # (Auto) 0.0 10^3/uL (0.0-0.1) 11/17/24 06:02 Nucleated RBC % (auto) 0 % 11/17/24 06:02 Nucleated RBCs # 0.0 /100WBC 11/17/24 06:02 Sodium 133 mmol/L (136-145) L 11/17/24 06:02 Potassium 4.6 mmol/L (3.5-5.1) 11/17/24 06:02 Chloride 100 mmol/L (98-107) 11/17/24 06:02 Carbon Dioxide 24 mmol/L (22-29) 11/17/24 06:02 Anion Gap 13.6 (5-19) 11/17/24 06:02 BUN 12 mg/dL (6-20) 11/17/24 06:02 Creatinine 0.9 mg/dL (0.5-0.9) 11/17/24 06:02 GFR Calculation 66.5 mL/min (90-130) L 11/17/24 06:02 Glucose 293 mg/dL (65-115) H 11/17/24 06:02 POC Glucose 204 mg/dL (70-110) H 11/18/24 11:00 Estimat Average Glucose 183 11/14/24 09:32 Hemoglobin A1c 8.0 % (4.0-6.0) H 11/14/24 09:32 Calculated Osmolality 287 mOsm/kg (285-295) 11/17/24 06:02 Lactic Acid 1.7 mmol/L (0.5-2.2) 11/14/24 09:32 Calcium 9.0 mg/dL (8.5-10.5) 11/17/24 06:02 Total Bilirubin 0.5 mg/dL (0.15-1.2) 11/17/24 06:02 AST 21 U/L (0-32) 11/17/24 06:02 ALT 39 U/L (0-33) H 11/17/24 06:02 Alkaline Phosphatase 131 U/L (35-105) H 11/17/24 06:02 C-Reactive Protein 147.2 mg/L (0.0-4.9) H 11/16/24 06:05 Total Protein 6.7 g/dL (6.6-8.7) 11/17/24 06:02 Albumin 3.0 g/dL (3.5-5.2) L 11/17/24 06:02 Globulin 3.7 g/dL (1.3-4.6) 11/17/24 06:02 Triglycerides 147 mg/dL (0-150) 11/14/24 09:32 Cholesterol 159 mg/dL (0-200) 11/14/24 09:32 LDL Cholesterol, Calc 90 mg/dL (50-129) 11/14/24 09: HDL Cholesterol 40 mg/dL (60-100) L 11/14/24 09:32 LDL/HDL Ratio 2.25 RATIO (0.00-3.22) 11/14/24 09: Cholesterol/HDL Ratio 3.98 mg/dL (0.0-4.40) 11/14/24 09:32 TSH 5.84 uIU/mL (0.27-4.20) H 11/14/24 09:32 Urine Color Dark yellow (Yellow) A 11/14/24 10:34 Urine Appearance Clear (CLEAR) 11/14/24 10:34 Urine pH 5.5 (5-7) 11/14/24 10:34 Ur Specific [place] 1.021 (1.005-1.030) 11/14/24 10:34 Urine Protein 1+ (Negative) A 11/14/24 10:34 Urine Glucose (UA) 3+ (Normal) H 11/14/24 10:34 Urine Ketones Negative (Negative) 11/14/24 10:34 Urine Blood Negative (Negative) 11/14/24 10:34 Urine Nitrate Positive (Negative) A 11/14/24 10:34 Urine Bilirubin Negative (Negative) 11/14/24 10:34 Urine Urobilinogen 1.0 mg/dL (Negative) 11/14/24 10:34 Ur Leukocyte Esterase Negative (Negative) 11/14/24 10:34 Urine RBC 0-2 /hpf (0-2) 11/14/24 10:34 Urine WBC 11-20 /hpf (0-5) H 11/14/24 10:34 Ur Squamous Epith Cells 0-5 /hpf (0-5) 11/14/24 10:34 Amorphous Sediment Not Reportable 11/14/24 10:34 Urine Bacteria 4+ /hpf (NONE) H 11/14/24 10:34 Hyaline Casts 1.65 /lpf 11/14/24 10:34 Vancomycin Trough 14.8 ug/mL (10-15) 11/17/24 22:26 Serum Ketones Negative (Negative) 11/14/24 09:32 Adenovirus (PCR) Not detected (NOT DETECT) 11/14/24 09:37 C. pneumoniae DNA (PCR) Not detected (NOT DETECT) 11/14/24 09:37 Coronavirus (PCR) Cancelled 11/14/24 09:37 Coronavirus 229E (PCR) Not detected (NOT DETECT) 11/14/24 09:37 Human Metapneumovir PCR Not detected (NOT DETECT) 11/14/24 09:37 Influenza A (H1) PCR Not detected (NOT DETECT) 11/14/24 09:37 Influenza A (PCR) Cancelled 11/14/24 09:37 Influ A (H1/09) PCR Not detected (NOT DETECT) 11/14/24 09:37 Influenza A (H3) PCR Not detected (NOT DETECT) 11/14/24 09:37 Influenza Type A (PCR) Not detected (NOT DETECT) 11/14/24 09:37 Influenza Type B (PCR) Cancelled 11/14/24 09:37 Influenza Type B (PCR) Not detected (NOT DETECT) 11/14/24 09:37 M. pneumoniae (PCR) Not detected (NOT DETECT) 11/14/24 09:37 Parainfluenza 1 (PCR) Not detected (NOT DETECT) 11/14/24 09:37 Parainfluenza 2 (PCR) Not detected (NOT DETECT) 11/14/24 09:37 Parainfluenza 3 (PCR) Not detected (NOT DETECT) 11/14/24 09:37 Parainfluenza 4 (PCR) Not detected (NOT DETECT) 11/14/24 09:37 RSV (PCR) Cancelled 11/14/24 09:37 RSV Type A (PCR) Not detected (NOT DETECT) 11/14/24 09:37 RSV Type B (PCR) Not detected (NOT DETECT) 11/14/24 09:37 Entero/Rhino (PCR) Not detected (NOT DETECT) 11/14/24 09:37 SARS-CoV-2 (PCR) Not detected (NOT DETECT) 11/14/24 09:37 Vitals Last Vital Signs Temp 97.5 F L 11/18/24 08:00 Pulse 87 11/18/24 08:37 Resp 16 11/18/24 08:37 BP 166/79 11/18/24 08:00 Pulse Ox 98 11/18/24 08:37 O2 Del Method Room Air 11/18/24 08:37 O2 Flow Rate 2 11/14/24 14:45 Discharge Plan Discharge Patient Disposition: Home Condition: Stable Prescriptions: New insulin glargine [Lantus U-100 Insulin] 100 unit/mL Solution 10 unit SUBCUT BEDTIME 30 Days Qty: 3 0RF hydrocodone-acetaminophen 5-325 mg Tablet 1 tab PO Q8H PRN (Reason: Moderate Pain) 7 Days Qty: 21 0RF clotrimazole 1 % Cream 1 applic topical BID 30 Days Qty: 30 0RF amoxicillin-pot clavulanate 875-125 mg tablet 1 tab PO Q12H 10 Days Qty: 20 0RF Jardiance 10 mg tablet 10 mg PO DAILY 30 Days Qty: 30 0RF Continued Repatha SureClick 140 mg/mL pen injector 140 mg SUBCUT Q14D varenicline [Chantix Continuing Month Box] 1 mg tablet 1 mg PO BID Qty: 56 4RF aripiprazole [Abilify] 2 mg tablet 2 mg PO DAILY Qty: 30 2RF pramipexole 0.5 mg tablet 0.5 mg PO DAILY PRN (Reason: Restless Leg(S)) celecoxib [Celebrex] 100 mg capsule 100 mg PO DAILY sucralfate 1 gram tablet 1 g PO .4 times daily furosemide [Lasix] 40 mg tablet 40 mg PO DAILY budesonide-formoterol [Symbicort] 160-4.5 mcg/actuation HFA aerosol inhaler 2 puff inhalation BID isosorbide mononitrate 60 mg tablet extended release 24 hr 120 mg PO DAILY alprazolam [Xanax] 0.25 mg tablet 0.25 mg PO DAILY PRN (Reason: anxiety) Qty: 15 0RF venlafaxine [Effexor XR] 75 mg capsule,extended release 24hr 75 mg PO DAILY Qty: 30 1RF ranolazine 1,000 mg tablet extended release 12 hr 1,000 mg PO Q12H omeprazole 40 mg capsule,delayed release(DR/EC) 40 mg PO BID ezetimibe 10 mg tablet 10 mg PO BEDTIME lisinopril 10 mg tablet 10 mg PO DAILY Qty: 30 3RF triamcinolone acetonide 0.5 % ointment 1 applic TOPICAL BID Rx Instructions: APPLY TO AFFECTED (RED) AREAS ON LEGS. USE TWICE DAILY FOR 2 WEEKS AND THEN ONCE DAILY FOR ONE WEEK, THEN STOP levothyroxine 150 mcg tablet 150 mcg PO DAILY Changed metoprolol succinate 50 mg tablet extended release 24 hr 25 mg PO DAILY 30 Days Qty: 30 0RF Discharge Orders: Discharge Order (Routine); Ordered 11/18/24 Ordered By: Lashay Andrews Other Ambulatory Orders: DME: [employer] (Order) Location: None Selected Ordered By: Lashay Andrews [facility]: [facility] Yovani Hurd MD [Physician] - (We have notified your physician's clinic of the need for a follow-up appointment to be scheduled. If you have not heard from them within the next 2 business days, please call them directly. ) Alexia Maria FNP [Primary Care Provider] - 11/22/24 11:00 am [facility], [Staff Physician] - 11/21/24 2:30 pm Discharge Diet: Diabetic Discharge Activity: Increase activity as tolerated Patient Instructions: Type 1 Diabetes, Hydrocodone/Acetaminophen (By mouth), Betamethasone/Clotrimazole (On the skin), Amoxicillin/Clavulanate Potassium (By mouth), Insulin Glargine (By injection) (Lantus, Lantus SoloStar, Toujeo, Semglee), Empagliflozin (By mouth) (Jardiance), Acute Wound Care (DC), Necrotizing Fasciitis (DC), Incision and Drainage (DC), Opioid Safety, Post Anesthesia Care, Pain Management Discharge Attestations Time Spent in Discharge Care*: greater than 30 min Quality Metrics Clinical Quality Measures [ No reported AMI, CVA or VTE this stay] Coding Level of Care Code Acute Code for Chg Fwd Diagnoses Necrotizing fasciitis M72.6 History of recent steroid use Z92.241 Gram-positive cocci bacteremia R78.81 UTI (urinary tract infection) N39.0 Chronic venous insufficiency I87.2 Diabetes mellitus E11.9 Vulvar abscess N76.4 Acute kidney injury N17.9 Hyperkalemia E87.5
== END 2024-11-18 12:40 | disposition home or self-care (01) | DRG 464 ==
LOC: ER 12:19 → ICU 13:16 → MEDSURG 11-15 15:45
PROVIDERS: Obstetrics & Gynecology; Admitting Provider Student in an Organized Health Care Education/Training Program; Emergency Provider Physician Assistant; PCP Nurse Practitioner Family; Visit Provider Student in an Organized Health Care Education/Training Program
PROC: 0JBB0ZZ Excision of Perineum Subcutaneous Tissue and Fascia, Open Approach (ICD-10-PCS; principal; 2024-11-14 16:00)
DX: M72.6 Necrotizing fasciitis (principal); N17.9 Acute kidney failure, unspecified; N76.4 Abscess of vulva; N39.0 Urinary tract infection, site not specified; Z68.43 Body mass index [BMI] 50.0-59.9, adult; I87.2 Venous insufficiency (chronic) (peripheral); E09.9 Drug or chemical induced diabetes mellitus without complications; T38.0X5A Adverse effect of glucocorticoids and synthetic analogues, initial encounter; E87.5 Hyperkalemia; I25.10 Atherosclerotic heart disease of native coronary artery without angina pectoris; R00.1 Bradycardia, unspecified; E66.01 Morbid (severe) obesity due to excess calories; F17.200 Nicotine dependence, unspecified, uncomplicated; F41.1 Generalized anxiety disorder; K21.9 Gastro-esophageal reflux disease without esophagitis; E03.9 Hypothyroidism, unspecified
CPT/HCPCS: 36415; 36416; 51702; 71045; 72193; 80053; 80061; 80202; 81001; 82009; 82962; 83036; 83605; 84443; 85025; 86140; 87040; 87070; 87075; 87077; 87086; 87150; 87186; 87205; 87486; 87581; 87633; 93005; 93970; 94640; 96365; 96372; 96375; 99285; J1100; J1171; J1650; J1815; J1885; J2250; J2270; J2405; J2543; J2704; J3010; J3370; J7030; J7613; J7626

== ENCOUNTER → 2024-11-21 16:00 | Outpatient (BNVA) | payer MEDICAID, SELFPAY | PROVIDERS: PCP Nurse Practitioner Family; Visit Provider Thoracic Surgery (Cardiothoracic Vascular Surgery) | DX: N76.4 Abscess of vulva (principal); E11.9 Type 2 diabetes mellitus without complications; S31.40XA Unspecified open wound of vagina and vulva, initial encounter; X58.XXXA Exposure to other specified factors, initial encounter | CPT/HCPCS: 87070; 87075; 87176; 87205 ==

== ENCOUNTER → 2025-02-01 16:45 | Outpatient (BNVA) | payer MEDICAID, SELFPAY | PROVIDERS: PCP Nurse Practitioner Family; Visit Provider Obstetrics & Gynecology | DX: Z01.419 Encounter for gynecological examination (general) (routine) without abnormal findings (principal) | CPT/HCPCS: 87624 ==

== ENCOUNTER → 2025-02-15 08:50 | Outpatient (BNVA) | payer MEDICAID, SELFPAY | PROVIDERS: PCP Nurse Practitioner Family; Visit Provider Obstetrics & Gynecology | DX: R10.2 Pelvic and perineal pain (principal) | CPT/HCPCS: 76830 ==

== ENCOUNTER 2025-02-15 17:56 | Emergency (ER) | payer MEDICAID, SELFPAY ==
[2025-02-15 18:04] VITALS: BP 121/80; PULSE 89; RESP 20; TEMP 36.6; O2SAT 99; BMI 55.7
[2025-02-15 18:42] VITALS: BP 128/74; PULSE 78; O2SAT 98
--- NOTE | 2025-02-15 19:03 | CTR_ITS ---
PROCEDURE INFORMATION: Exam: CT Abdomen And Pelvis With Contrast Exam date and time: 02/15/2025 7:43 PM Age: 50 years old Clinical indication: Pain; Other: Labial region left side; Prior surgery; Surgery date: 1-6 months; Surgery type: Labial abscess 11/2024, gb, partial hysterectomy >1 yr; Additional info: Left lower pelvis/genital pain, HX of nec fasc TECHNIQUE: Imaging protocol: Computed tomography of the abdomen and pelvis with contrast. Radiation optimization: All CT scans at this facility use at least one of these dose optimization techniques: automated exposure control; mA and/or kV adjustment per patient size (includes targeted exams where dose is matched to clinical indication); or iterative reconstruction. Contrast material: OMNIPAQUE 350; Contrast volume: 100 ml; Contrast route: INTRAVENOUS (IV); COMPARISON: CT pelvis w con* [id number] 11/14/2024 10:20 AM RADIATION DOSE METRICS: Total DLP (mGy-cm): 1530.93 FINDINGS: Lungs: Unremarkable. Liver: Normal. No mass. Gallbladder and biliary ducts: Status post cholecystectomy. Pancreas: Normal. No ductal dilation. Spleen: Normal. No splenomegaly. Adrenal glands: Normal. No mass. Kidneys and ureters: Punctate nonobstructing left renal calculus versus vascular calcification. No hydronephrosis or obstructing calculi bilaterally. There is mildly asymmetric enhancement of bilateral kidneys with right kidney demonstrating mildly delayed contrast excretion. Stomach and bowel: Unremarkable. No obstruction. No mucosal thickening. Appendix: Appendix is unremarkable. Intraperitoneal space: Unremarkable. No free air. No significant fluid collection. Vasculature: Scattered atherosclerosis. Lymph nodes: Unremarkable. No enlarged lymph nodes. Urinary bladder: Unremarkable as visualized. Reproductive: Hysterectomy. Bones/joints: Unremarkable. No acute fracture. Soft tissues: Interval resolution of previously seen severe inflammatory changes involving right perineum. There is remaining mild soft tissue thickening without significant edema or contained fluid collection identified. Small fat containing umbilical hernia. CT/CT abdomen pelvis w con* [id number] IMPRESSION: 1. Interval resolution of previously seen severe inflammatory changes of necrotizing fasciitis involving right perineum. Mild soft tissue thickening remains, likely representing scarring. No inflammatory changes or contained fluid collection identified. 2. Mildly asymmetric enhancement of bilateral kidneys with right kidney demonstrating minimally delayed contrast excretion. No significant perinephric fat stranding. Nonspecific findings correlation with laboratory values to assess renal function is recommended.
--- NOTE | 2025-02-15 19:09 | W.ED.SKABFB ---
HPI - Skin/Abscess/Foreign Bdy General: Chief complaint: Skin/Abscess/Foreign Body Stated complaint: red spot on upper arm right arm Time Seen by Provider: 02/15/25 18:32 Source: patient Mode of arrival: ambulatory Limitations: no limitations History of Present Illness: Patient is a 50-year-old female who presents the emergency department complaining of vaginal pain for the past 2 days. She reports a history of abscess to the right labial region, reviewing past medical history appears she had a vulvar abscess on 11/14 of this year, with Dr. Hurd. There is associated debridement that was required as well as necrotizing fasciitis to the right perineum, patient notes that the pain she is currently having was similar to then. She does note some nausea, however no fevers, vomiting, or other symptoms. Discharged and states she has been doing well, however on Thursday had 2 vaccinations she received at [facility] has been having also some unassociated right upper arm pain and swelling, but states that soon after she developed the pain to her genital region again. She notes pain with ambulation, also notes that she is chronically on antibiotics at this time. No other symptoms reported. MD complaint: lesion Onset (ago): day(s) Tetanus up to date: yes Location: genitals Severity: moderate Quality: sharp and constant Exacerbating factors: movement Context: other (History of right vulvar abscess with associated necrotizing fasciitis) Associated symptoms: Reports nausea; Deny chills, fever(s) or vomiting Treatments prior to arrival: antibiotic Related Data Home Medications ?Medication ?Instructions ?Recorded ?Confirmed pramipexole 0.5 mg tablet 0.5 mg PO DAILY PRN Restless Leg(S) 04/04/22 02/07/25 ranolazine 1,000 mg 1,000 mg PO Q12H 12/22/22 02/07/25 tablet,extended release,12 hr celecoxib 100 mg capsule (Celebrex) 100 mg PO DAILY 12/17/23 02/07/25 ezetimibe 10 mg tablet 10 mg PO BEDTIME 06/17/24 02/07/25 evolocumab 140 mg/mL subcutaneous 140 mg SUBCUT Q14D 08/01/24 02/07/25 pen injector (Savage Kaur) budesonide-formoterol HFA 160 2 puff inhalation BID 08/29/24 02/07/25 mcg-4.5 mcg/actuation aerosol inhaler (Symbicort) furosemide 40 mg tablet (Lasix) 40 mg PO DAILY 08/29/24 02/07/25 sucralfate 1 gram tablet 1 g PO .4 times daily 08/29/24 02/07/25 isosorbide mononitrate 60 mg 120 mg PO DAILY 09/30/24 02/07/25 tablet,extended release 24 hr levothyroxine 150 mcg tablet 150 mcg PO DAILY 11/14/24 02/07/25 triamcinolone acetonide 0.5 % 1 applic topical BID 11/14/24 02/07/25 topical ointment semaglutide 0.25 mg or 0.5 mg (2 mg SUBCUT 12/26/24 02/07/25 mg/1.5 mL) subcutaneous pen injector (Ozempic) empagliflozin 10 mg tablet 10 mg PO QAM 01/10/25 02/07/25 (Jardiance) insulin glargine 100 unit/mL 10 unit SUBCUT .Q HS 01/10/25 02/07/25 subcutaneous solution (Lantus U-100 Insulin) omeprazole 20 mg capsule,delayed 20 mg PO DAILY 02/07/25 02/07/25 release Previous Rx's ?Medication ?Instructions ?Recorded lisinopril 10 mg tablet 10 mg PO DAILY #30 tabs 06/18/24 alprazolam 0.25 mg tablet (Xanax) 0.25 mg PO DAILY PRN anxiety #15 08/09/24 tabs aripiprazole 2 mg tablet (Abilify) 2 mg PO DAILY #30 tabs 10/28/24 metoprolol succinate 50 mg 25 mg (1/2 x 50 mg) PO DAILY 30 11/18/24 tablet,extended release 24 hr days #30 tabs trazodone 50 mg tablet 50 mg PO DAILY #30 tabs 11/24/24 venlafaxine 150 mg 150 mg PO DAILY #30 caps 01/10/25 capsule,extended release 24 hr (Effexor XR) mupirocin calcium 2 % topical cream 1 applic topical TID #30 grams 02/01/25 Allergies Allergy/AdvReac Type Severity Reaction Status Date / Time codeine Allergy Unknown Unknown Verified 02/15/25 18:11 Review of Systems General: Reports: 10 or more systems reviewed and unremarkable except in HPI and below Const: Denies: fever(s), chills, change in appetite, change in weight or diaphoresis ENMT: Denies: throat pain or hoarseness Card: Denies: chest pain, palpitations or lightheadedness Resp: Denies: dyspnea, productive cough or wheezing GI: Reports: nausea; Denies: abdominal pain, vomiting or diarrhea : Reports: genital lesions and pelvic pain; Denies: flank pain, difficulty voiding, dysuria, urinary frequency or urinary urgency Musc: Reports: extremity pain (Right upper arm); Denies: neck pain or back pain Skin/Breast: Reports: erythema (Right upper arm) and skin swelling (Right upper arm) Neuro: Denies: headache(s) or dizziness PFSH ED PFSH: Medical History Nicotine use disorder History of coronary artery disease Unstable angina pectoris Unstable angina Obesity, morbid, BMI 50 or higher Unstable angina Panic disorder Generalized anxiety disorder Psychiatric care Anxiety GERD (gastroesophageal reflux disease) Hypothyroidism Coronary artery disease Surgical History History of cholecystectomy History of tonsillectomy History of tubal ligation History of hysterectomy History of coronary artery bypass graft Family History Other CAD (coronary artery disease) Stroke Social History Smoking and tobacco/nicotine status: never used tobacco/nicotine Alcohol intake: never Physical Exam Const: COMMON NORMALS: no acute distress, patient oriented x3, no limitations, healthy appearing, alert and well nourished GENERAL APPEARANCE: cooperative and comfortable NUTRITIONAL APPEARANCE: obese morbidly obese ORIENTATION/CONSCIOUSNESS: Yes awake HENMT: COMMON NORMALS: normocephalic, atraumatic, hearing grossly normal bilaterally, external ears normal, Normal external nose present, Normal nasal mucous membranes and turbinates present and moist oral mucous membranes HEAD & SCALP: normocephalic and atraumatic NOSE: Normal external nose present and Normal nasal mucous membranes and turbinates present EXTERNAL EAR: Yes external ears normal Eye: COMMON NORMALS: Equal, round and reactive pupils present, EOMs intact bilaterally, conjunctivae normal and normal visual manuel by confrontation CONJUNCTIVA: Yes conjunctivae normal PUPIL: Yes Equal, round and reactive pupils present Neck/C-Spine: COMMON NORMALS: full ROM, supple, no meningeal signs and no JVD Resp: COMMON NORMALS: normal respiratory effort, No retractions, No use of accessory muscles and clear to auscultation bilaterally AUSCULTATION: clear to auscultation bilaterally, no crackles, no rales, no rhonchi and no wheezes Cardio: COMMON NORMALS: no JVD, regular rate, regular rhythm, S1 normal heart sound present, S2 normal heart sound present, No gallops present (Cardio), No clicks present (Cardio), No murmurs present (Cardio), No rub (Cardio) and Peripheral pulses 2+ throughout RATE: regular rate RHYTHM: regular rhythm HEART SOUNDS: S1 normal heart sound present and S2 normal heart sound present PERIPHERAL PULSES: Peripheral pulses 2+ throughout GI: COMMON NORMALS: Normal to inspection, nondistended, normoactive bowel sounds present, Soft to palpation, non-tender, No hepatosplenomegaly present and no masses AUSCULTATION: Yes normoactive bowel sounds PALPATION: Yes Soft to palpation, No Guarding due to palpation present (GI), No Rigid due to palpation and Yes No hepatosplenomegaly present RECTAL EXAM: deferred : OTHER: Postoperative changes to right labial region. To the left superior mons pubis there is tender to palpation, no fluctuance at this time but induration and erythema is noted. No vaginal discharge or bleeding. Rest of the exam unremarkable. Extremity: COMMON NORMALS: full ROM Neuro: COMMON NORMALS: patient oriented x3, moves all extremities, no focal motor deficits and no sensory deficits noted SENSORIUM/ORIENTATION: Yes alert MENINGEAL SIGNS: Yes no meningeal signs Psych: COMMON NORMALS: mental status grossly normal, cooperative and speech normal SPEECH: Yes normal speech Skin: NARRATIVE SKIN EXAM: To the right upper extremity there is erythema and induration from previous vaccination Course Vital Signs: Vital signs: Vital Signs Temperature 97.9 F 02/15/25 18:04 Pulse Rate 75 02/15/25 21:03 Respiratory Rate 18 02/15/25 21:03 Blood Pressure 115/66 02/15/25 21:03 Pulse Oximetry 98 02/15/25 21:03 Oxygen Delivery Me thod Room Air 02/15/25 18:42 MDM - Skin/Abscess/Foreign Bdy Medicial Decision Making Patient had presented for evaluation of pain to her genital regions, history of vulvar abscess diagnosed in November that did result necrotizing fasciitis and a hospital stay with surgical debridement. Patient notes a similar pain this time wanted it checked out. On exam there is no drainable abscess, questionable induration to the left mons pubis region with no labial lesions or other vaginal abnormalities. With lab work, there was no elevation in white count, ESR and CRP were unremarkable. Urinalysis did not show any infection. Rest of her labs overall unremarkable. Repeat CT showed improvement of the previous necrotizing fasciitis. Unrelated she had injection site reaction to right upper extremity that she wanted looked at, told her to place some ice on this and take ibuprofen as there were no further concerns with this. I did speak with Dr. Hurd, BUCK[employer] SE[employer] MACHINE who handle patient's previous surgery, who states he will see the patient in the office tomorrow. Discussed this plan with the patient, who agrees and we discussed return precautions in the meantime to which she verbalized understanding. Lab Data 02/15/25 19:12 02/15/25 19:12 Radiology Impressions Abdomen/Pelvis CT 02/15/25 19:03 IMPRESSION: 1. Interval resolution of previously seen severe inflammatory changes of necrotizing fasciitis involving right perineum. Mild soft tissue thickening remains, likely representing scarring. No inflammatory changes or contained fluid collection identified. 2. Mildly asymmetric enhancement of bilateral kidneys with right kidney demonstrating minimally delayed contrast excretion. No significant perinephric fat stranding. Nonspecific findings correlation with laboratory values to assess renal function is recommended. Laboratory Results WBC 10.23 10^3/uL (3.29-11.43) 02/15/25 19:12 RBC 5.03 10^6/uL (3.85-5.65) 02/15/25 19:12 Hgb 16.40 g/dL (11.27-16.99) 02/15/25 19:12 Hct 49.4 % (36-47) H 02/15/25 19:12 MCV 98.2 fl (85-98) H 02/15/25 19:12 MCH 32.6 pg (27-33) 02/15/25 19:12 MCHC 33.2 g/dL (30-55) 02/15/25 19:12 RDW 13.2 % (12.1-15.1) 02/15/25 19:12 Plt Count 156 10^3/cmm (157-399) L 02/15/25 19:12 MPV 10.8 fL (7.4-10.4) H 02/15/25 19:12 Neut % (Auto) 62.5 % 02/15/25 19:12 Lymph % (Auto) 28.5 % 02/15/25 19:12 Foard % (Auto) 8.5 % 02/15/25 19:12 Eos % (Auto) 0.1 % 02/15/25 19:12 Baso % (Auto) 0.2 % 02/15/25 19:12 Neut # (Auto) 6.39 10^3/uL (1.8-7.7) 02/15/25 19:12 Lymph # (Auto) 2.9 10^3/uL (0.8-4.8) 02/15/25 19:12 Foard # (Auto) 0.9 10^3/uL (0.2-0.9) 02/15/25 19:12 Eos # (Auto) 0.0 10^3/uL (0.0-0.8) 02/15/25 19:12 Baso # (Auto) 0.0 10^3/uL (0.0-0.1) 02/15/25 19:12 Nucleated RBC % (auto) 0 % 02/15/25 19:12 Nucleated RBCs # 0.0 /100WBC 02/15/25 19:12 ESR 38 mm/hr (0-15) H 02/15/25 19:12 Sodium 136 mmol/L (136-145) 02/15/25 19:12 Potassium 3.9 mmol/L (3.5-5.1) 02/15/25 19:12 Chloride 98 mmol/L (98-107) 02/15/25 19:12 Carbon Dioxide 26 mmol/L (22-29) 02/15/25 19:12 Anion Gap 15.9 (5-19) 02/15/25 19:12 BUN 15 mg/dL (6-20) 02/15/25 19:12 Creatinine 1.1 mg/dL (0.5-0.9) H 02/15/25 19:12 GFR Calculation 52.6 mL/min (90-130) L 02/15/25 19:12 Glucose 99 mg/dL (65-115) 02/15/25 19:12 Calculated Osmolality 283 mOsm/kg (285-295) L 02/15/25 19:12 Calcium 9.8 mg/dL (8.5-10.5) 02/15/25 19:12 Total Bilirubin 0.5 mg/dL (0.15-1.2) 02/15/25 19:12 AST 50 U/L (0-32) H 02/15/25 19:12 ALT 46 U/L (0-33) H 02/15/25 19:12 Alkaline Phosphatase 132 U/L (35-105) H 02/15/25 19:12 C-Reactive Protein 19.4 mg/L (0.0-4.9) H 02/15/25 19:12 Total Protein 7.9 g/dL (6.6-8.7) 02/15/25 19:12 Albumin 3.9 g/dL (3.5-5.2) 02/15/25 19:12 Globulin 4.0 g/dL (1.3-4.6) 02/15/25 19:12 Urine Color Yellow (Yellow) 02/15/25 19:28 Urine Appearance Clear (CLEAR) 02/15/25 19:28 Urine pH 6.5 (5-7) 02/15/25 19:28 Ur Specific Oliver 1.015 (1.005-1.030) 02/15/25 19:28 Urine Protein Neg (Negative) 02/15/25 19:28 Urine Glucose (UA) 4+ (Normal) H 02/15/25 19:28 Urine Ketones Negative (Negative) 02/15/25 19:28 Urine Blood Neg (Negative) 02/15/25 19:28 Urine Nitrate Negative (Negative) 02/15/25 19:28 Urine Bilirubin Neg (Negative) 02/15/25 19:28 Urine Urobilinogen Norm mg/dL (Negative) 02/15/25 19:28 Ur Leukocyte Esterase Negative (Negative) 02/15/25 19:28 Amorphous Sediment Not Reportable 02/15/25 19:28 All radiology interpretation(s) finalized by discharge Discharge Plan Discharge Patient Disposition: Home Clinical Impression: Cellulitis Condition: Stable Prescriptions: No Action Repatha SureClick 140 mg/mL pen injector 140 mg SUBCUT Q14D aripiprazole [Abilify] 2 mg tablet 2 mg PO DAILY Qty: 30 2RF trazodone 50 mg tablet 50 mg PO DAILY Qty: 30 1RF insulin glargine [Lantus U-100 Insulin] 100 unit/mL solution 10 unit SUBCUT .Q HS Jardiance 10 mg tablet 10 mg PO QAM venlafaxine [Effexor XR] 150 mg capsule,extended release 24hr 150 mg PO DAILY Qty: 30 2RF mupirocin calcium 2 % cream 1 applic topical TID Qty: 30 2RF pramipexole 0.5 mg tablet 0.5 mg PO DAILY PRN (Reason: Restless Leg(S)) celecoxib [Celebrex] 100 mg capsule 100 mg PO DAILY sucralfate 1 gram tablet 1 g PO .4 times daily furosemide [Lasix] 40 mg tablet 40 mg PO DAILY budesonide-formoterol [Symbicort] 160-4.5 mcg/actuation HFA aerosol inhaler 2 puff inhalation BID isosorbide mononitrate 60 mg tablet extended release 24 hr 120 mg PO DAILY Ozempic 0.25 mg or 0.5 mg(2 mg/1.5 mL) pen injector SUBCUT omeprazole 20 mg capsule,delayed release(DR/EC) 20 mg PO DAILY alprazolam [Xanax] 0.25 mg tablet 0.25 mg PO DAILY PRN (Reason: anxiety) Qty: 15 0RF ranolazine 1,000 mg tablet extended release 12 hr 1,000 mg PO Q12H ezetimibe 10 mg tablet 10 mg PO BEDTIME lisinopril 10 mg tablet 10 mg PO DAILY Qty: 30 3RF triamcinolone acetonide 0.5 % ointment 1 applic TOPICAL BID Rx Instructions: APPLY TO AFFECTED (RED) AREAS ON LEGS. USE TWICE DAILY FOR 2 WEEKS AND THEN ONCE DAILY FOR ONE WEEK, THEN STOP levothyroxine 150 mcg tablet 150 mcg PO DAILY metoprolol succinate 50 mg tablet extended release 24 hr 25 mg PO DAILY 30 Days Qty: 30 0RF Discharge Orders: Discharge ED (Routine); Ordered 02/15/25 Ordered By: Alvin Omer Referrals: Alexia Maria FNP [Primary Care Provider] - Patient Instructions: Cellulitis (ED) Activity Restrictions/Additional Instructions: Continue taking your home medications including your home antibiotics. Follow-up with Dr. Hurd tomorrow as we discussed. Return with any fevers, worsening pain, or any other major concerns that you have. Print Language: Sinhala Coding Level of Care Code ED Tassel Snipper for Carrie Melchor
[2025-02-15] MEDS: ondansetron 2 mg/ML SDV 2 mL 8 MG IVP (19:20)
[2025-02-15] MEDS: ketorolac 60 mg/2 mL INJ 30 MG IVP (19:23)
[2025-02-15 19:32] LABS: Basophils % 0.2 %; Eosinophils % 0.1 %; Hematocrit 49.4 % (36-47); Lymphocytes # 2.9 10^3/uL (0.8-4.8); Lymphocytes % 28.5 %; Mean Corpuscular HGB Conc 33.2 g/dL (30-55); Mean Corpuscular Hemoglobin 32.6 pg (27-33); Mean Corpuscular Volume 98.2 fl (85-98); Mean Platelet Volume 10.8 fL (7.4-10.4); Monocytes # 0.9 10^3/uL (0.2-0.9); Monocytes % 8.5 %; Neutrophils # 6.39 10^3/uL (1.8-7.7); Neutrophils % 62.5 %; Nucleated Red Blood Cells % 0 %; Platelet Count 156 10^3/cmm (157-399); Red Blood Count 5.03 10^6/uL (3.85-5.65); Red Cell Distribution Width 13.2 % (12.1-15.1); White Blood Count 10.23 10^3/uL (3.29-11.43)
[2025-02-15 19:37] LABS: Erythrocyte Sedimentation Rate 38 mm/hr (0-15)
[2025-02-15 19:41] LABS: Add Urine Microscopic? NO
[2025-02-15 19:42] LABS: Glucose Urine UA 4+ (Normal); Protein Urine Neg (Negative); Specific Gravity, Urine 1.015 (1.005-1.030); Urine Appearance Clear (CLEAR); Urine Color Yellow (Yellow); pH Urine 6.5 (5-7)
[2025-02-15 19:43] LABS: Bilirubin Urine Neg (Negative); Blood Urine Neg (Negative); Charge for UA Resulting for Rev; Ketones Urine Negative (Negative); Leukocyte Esterase Urine Negative (Negative); Nitrate Urine Negative (Negative); Urobilinogen Urine Norm (Negative)
[2025-02-15] MEDS: iohexol 350 mg/mL 500 mL Btl (per mL) IV (19:47)
[2025-02-15 19:57] LABS: Alanine Aminotransferase 46 U/L (0-33); Albumin Level 3.9 g/dL (3.5-5.2); Alkaline Phosphatase 132 U/L (35-105); Anion Gap 15.9 (5-19); Aspartate Amino Transferase 50 U/L (0-32); Blood Urea Nitrogen 15 mg/dL (6-20); C Reactive Protein 19.4 mg/L (0.0-4.9); Calcium 9.8 mg/dL (8.5-10.5); Carbon Dioxide 26 mmol/L (22-29); Chloride 98 mmol/L (98-107); Creatinine Clr Calc Pharmacy 94.8287; Glomerular Filtration Rate 52.6 mL/min (90-130); Glucose 99 mg/dL (65-115); Osmolality Calculated 283 mOsm/kg (285-295); Potassium 3.9 mmol/L (3.5-5.1); Sodium 136 mmol/L (136-145); Total Bilirubin 0.5 mg/dL (0.15-1.2); Total Protein 7.9 g/dL (6.6-8.7)
[2025-02-15 21:03] VITALS: BP 115/66; PULSE 75; RESP 18; O2SAT 98
== END 2025-02-15 21:04 | disposition home or self-care (01) ==
PROVIDERS: Emergency Provider Physician Assistant; PCP Nurse Practitioner Family
DX: N76.2 Acute vulvitis (principal); I25.10 Atherosclerotic heart disease of native coronary artery without angina pectoris
CPT/HCPCS: 74177; 80053; 81003; 85025; 85651; 86140; 96374; 96375; 99285; J1885; J2405

== ENCOUNTER 2025-06-05 22:44 | Emergency (ER) | payer MEDICAID, SELFPAY ==
[2025-06-05 22:50] VITALS: BP 155/75; PULSE 70; RESP 20; TEMP 36.7; O2SAT 100; BMI 51.3
--- OUTSIDE RECORDS SUMMARY | 2025-06-05 22:50 | XMS_ITS | Encounter Summary ---
Author Organization [facility] Address [address] [place] [address] Care Team Providers Care C Wpf Developer Name Role Phone Meg Sargent Primary Care Provider [phone] Reason for Referral * Radiology Services (Urgent) - Closed Specialty Diagnoses / Procedures Referred By Contletitia t Referred To Contact Radiology Diagnoses Other specified abnormal findings of blood chemistry Upper abdominal pain, unspecified Procedures US ABDOMEN LIMITED Meg Sargent FNP [address] [place] [address] Phone: tel: fax: [facility] [address] [place] [address] Phone: tel: fax: Referral ID Status Reason Start Date Expiration Date V isits Requested Visits Authorized [id number] Closed [facility] CTS to Schedule 12/20/2020 01/20/2022 1 1 ENGINEER Encounter Details Date Type Department Care Team (Latest Contact Info) Description 12/20/2020 Ancillary Orders [facility] Pre-Registration [place] CALL TO MAKE APPOINTMENT ONLY [address] [place] [address] Meg Sargent FNP [address] [place] [address] Other specified abnormal findings of blood chemistry; Upper abdominal pain, unspecified Social History Tobacco Use Types Packs/Day Years Used Date Smoking Tobacco: Every Day Cigarettes 0.5 20 Smokeless Tobacco: Never Alcohol Use Standard Drinks/Week Comments No 0 (1 standard drink = 0.6 oz pur e alcohol) Comments No Sex and Gender Information Value Date Recorded Sex Assigned at Not on file Legal Sex Female 1:20 PM SOA ENGINEER Gender Identity Not on file Sexual Orientation Not on file Occupation Industry Job Start Date Job End Date Not on file Not on file Not on file Not on file Not on file Not on file Not on file Not on file COVID-19 Exposure Response Date Recorded In the last month, have you been in contact with someone who was confirmed or suspected to have Coronavirus / COVID-19? No / Unsure 12/21/2020 8:31 AM SOA ENGINEER documented as of this encounter Plan of Treatment Not on file documented as of this encounter Results * US ABDOMEN LIMITED (12/21/2020 9:50 AM SOA ENGINEER) Anatomical Region Laterality Modality Abdomen Ultrasound 12/21/2020 9:50 AM SOA ENGINEER Impressions 12/21/2020 10:30 AM SOA ENGINEER IMPRESSION: 1. Hepatomegaly and increased liver echotexture which may indicate fatty infiltration and/or diffuse hepatocellular disease. 2. Postop cholecystectomy. [id number] Narrative 12/21/2020 10:30 AM SOA ENGINEER Exam: US ABDOMEN LIMITED Date/Time of Exam: 12/21/2020 9:50 AM Reason For Exam: See Diagnosis. Diagnosis: Other specified abnormal findings of blood chemistry; Upper abdominal pain, unspecified. Findings: Mild hepatomegaly. Increased liver echotexture. No focal hepatic lesions or intrahepatic biliary duct dilatation. The gallbladder has been removed. The common bile duct is 4.4 mm. The pancreas is partially obscured by overlying bowel gas. The right kidney is unremarkable at 12.6 cm. Procedure Note Vicente Johnson MD - 12/21/2020 Exam: US ABDOMEN LIMITED Date/Time of Exam: 12/21/2020 9:50 AM Reason For Exam: See Diagnosis. Diagnosis: Other specified abnormal findings of blood chemistry; Upper abdominal pain, unspecified. Findings: Mild hepatomegaly. Increased liver echotexture. No focal hepatic lesions or intrahepatic biliary duct dilatation. The gallbladder has been removed. The common bile duct is 4.4 mm. The pancreas is partially obscured by overlying bowel gas. The right kidney is unremarkable at 12.6 cm. IMPRESSION: 1. Hepatomegaly and increased liver echotexture which may indicate fatty infiltration and/or diffuse hepatocellular disease. 2. Postop cholecystectomy. [id number] us [facility] US ORDERABLES Final Result documented in this encounter Visit Diagnoses Diagnosis Other specified abnormal findings of blood chemistry Upper abdominal pain, unspecified Other specified abnormal findings of blood chemistry Upper abdominal pain, unspecified documented in this encounter Care Teams C Wpf Developer Relationship Specialty Start Date End Date Parnell, Meg, FNP [address] [place] [address] PCP - General Nurse Practitioner Family 12/04/20 documented as of this encounter
--- OUTSIDE RECORDS SUMMARY | 2025-06-05 22:50 | XMS_ITS | Encounter Summary ---
Author Organization [facility] Address [address] [place] [address] Care Team Providers Care Fire Investigator Name Role Phone Sargent, Meg JEAN Primary Care Provider [phone] Encounter Details Date Type Department Care Team (Late st Contact Info) Description 02/16/2018 Lab Requisition [facility] Laboratory Services [address] [place] [address] Brooks Cruz, [address] [address] Social History Tobacco Use Types Packs/Day Years Used Date Smoking Tobacco: Every Day Cigarettes 1 20 Smokeless Tobacco: Never Alcohol Use Standard Drinks/Week Comments No 0 (1 standard drink = 0.6 oz pur e alcohol) Comments No Sex and Gender Information Value Date Recorded Sex Assigned at Not on file Legal Sex Female 1:20 PM COMMUTATOR ASSEMBLER Gender Identity Not on file Sexual Orientation Not on file Occupation Industry Job Start Date Job End Date Not on file Not on file Not on file Not on file Not on file Not on file Not on file Not on file documented as of this encounter Plan of Treatment Not on file documented as of this encounter Procedures Procedure Name Priority Date/Time Associated Diagnosis Comments HEMOGLOBIN A1C Routine 02/16/2018 6:15 AM CDT LIPID PANEL Routine 02/16/2018 6:15 AM CDT COMPREHENSIVE METABOLIC PANEL Routine 02/16/2018 6:15 AM CDT documented in this encounter Results * (ABNORMAL) COMPREHENSIVE METABOLIC PANEL (02/16/2018 6:15 AM CDT) SODIUM 137 136 - 145 mmol/L 02/16/2018 1:35 PM [facility] POTASSIUM 4.1 3.5 - 5.1 mmol/L 02/16/2018 1:35 PM [facility] CHLORIDE 104 98 - 107 mmol/L 02/16/2018 1:35 PM [facility] CO2 19(L) 22 - 29 mmol/L 02/16/2018 1:35 PM [facility] CALCIUM 9.2 8.6 - 10.0 mg/dL 02/16/2018 1:35 PM [facility] BUN 12 6 - 20 mg/dL 02/16/2018 1:35 PM [facility] CREATININE 1.07(H) 0.51 - 0.95 mg/dL 02/16/2018 1:35 PM [facility] GLUCOSE 112(H) 74 - 106 mg/dL 02/16/2018 1:35 PM [facility] TOTAL PROTEIN 7.2 6.4 - 8.3 g/dL 02/16/2018 1:35 PM [facility] ALBUMIN 4.1 3.5 - 5.2 g/dL 02/16/2018 1:35 PM [facility] BILIRUBIN TOTAL 0.4 0.2 - 1.0 mg/dL 02/16/2018 1:35 PM [facility] ALKALINE PHOSPHATASE 104 35 - 104 U/L 02/16/2018 1:35 PM [facility] AST 34 10 - 35 U/L 02/16/2018 1:35 PM [facility] ALT 44(H) <=35 U/L 02/16/2018 1:35 PM [facility] GFR 56(L) >=60 mL/min/1. 73 sq meter 02/16/2018 1:35 PM [facility] Comment: eGFR has not been validated for use in the elderly (> 70 years of age), women, patients with serious co-morbid conditions, or persons with extremes of body size or muscle mass and should also be interpreted with caution in patients with acute kidney failure, dialysis dependent patients, patients reporting exceptional dietary intake (e.g. vegetarian diet, high protein diets, creatine supplementation), and patients with severe liver disease. Based on National Kidney Disease Education Program If patient is , please refer to the GFR result. GFR, >60 >=60 mL/min/1. 73 sq meter 02/16/2018 1:35 PM CDT [facility] ANION GAP 14 4 - 30 mmol/L 02/16/2018 1:35 PM CDT [facility] Blood Collection / Unknown 02/16/2018 6:15 AM CDT 02/16/2018 12:19 PM CDT us Brooks Cruz DO CHEMISTRY ORDERABLES Final R esult Performing Organization Address [facility] Co de Phone Number [facility] CLIA# [id number] [address] [place], [place] [address] * HEMOGLOBIN A1C (02/16/2018 6:15 AM CDT) Pathologist [facility] HEMOGLOBIN A1C 5.5 4.0 - 6.0 % 02/17/2018 7:24 AM CDT [facility] EST. AVG GLUCOSE, A1C 111 mg/dL 02/17/2018 7:24 AM CDT [facility] Blood Collection / Unknown 02/16/2018 6:15 AM CDT 02/16/2018 12:19 PM CDT Narrative [facility] - 02/17/2018 7:24 AM CDT Test performed on [employer] instrumentation using HPLC methodology us Brooks Cruz DO CHEMISTRY ORDERABLES Final R esult Performing Organization Address City/[facility]/ZIP Co de Phone Number [facility] CLIA# [id number] [address] [facility] [place] [address] * (ABNORMAL) LIPID PANEL (02/16/2018 6:15 AM CDT) CHOLESTEROL 249(H) <200 mg/dL 02/16/2018 1:35 PM CDT [facility] TRIGLYCERIDE 187(H) <150 mg/dL 02/16/2018 1:35 PM CDT [facility] HDL 40 40 - 59 mg/dL 02/16/2018 1:35 PM CDT [facility] LDL CALCULATED 172(H) <100 mg/dL 02/16/2018 1:35 PM T [facility] NON-HDL CHOLESTEROL 209(H) <130 mg/dL 02/16/2018 1:35 PM T [facility] Blood Collection / Unknown 02/16/2018 6:15 AM CDT 02/16/2018 12:19 PM CDT Narrative [facility] - 02/16/2018 1:35 PM CDT TOTAL CHOLESTEROL mg/dL Desirable <200 Borderline high 200-239 High >=240 TRIGLYCERIDES mg/dL Normal <150 Borderline high 150-199 High 200-499 Very high >=500 HDL CHOLESTEROL mg/dL Low <40 Normal 40-59 Desirable >=60 NON HDL CHOLESTEROL mg/dL Optimal <130 Near Optimal 130-159 Borderline High 160-189 Very High >=190 Calculated LDL mg/dL Optimal <100 Near Optimal 100-129 Borderline High 130-159 High 160-189 Very High >=190 ATPIII Guidelines Reference Ranges for Lipid Panels (NCEP/AMA) us Brooks Cruz DO CHEMISTRY ORDERABLES Final R esult [facility] CLIA# [id number] [address] [place] [address] documented in this encounter Visit Diagnoses Not on filedocumented in this encounter Additional Health Concerns Infection Onset Date Last Indicated Resolved Time R/O COVID-19 12/04/2020 12/04/2020 12/05/2020 2:02 AM COMMUTATOR ASSEMBLER documented as of this encounter Care Teams Fire Investigator Relationship Specialty Start Date End Date Sargent, JEAN Weaver [address] [place] [id number] PCP - General Nurse Practitioner Family 12/04/20 documented as of this encounter
--- OUTSIDE RECORDS SUMMARY | 2025-06-05 22:50 | XMS_ITS | Encounter Summary ---
Author Organization [facility] Address [address] [place] [address] Care Team Providers Care Gravedigger Name Role Phone Arie, Meg JEAN Primary Care Provider [phone] Encounter Details Date Type Department Care Team (Late st Contact Info) Description 06/28/2012 Ancillary Orders [facility] Laboratory Services [place] [address] [place] [address] Thyroid disorder Social History Tobacco Use Types Packs/Day Years Used Date Smoking Tobacco: Never Assessed Comments Unknown Sex and Gender Information Value Date Recorded Sex Assigned at Not on file Legal Sex Female 1:20 PM ADMINISTRATIVE SUPPORT ASSOC Gender Identity Not on file Sexual Orientation Not on file documented as of this encounter Plan of Treatment Not on file documented as of this encounter Procedures Procedure Name Priority Date/Time Associated Diagnosis Comments CBC WITH DIFFERENTIAL Routine 06/28/2012 6:25 PM CDT THYROID DISORDER [ICD-9-CM] TSH Routine 06/28/2012 6:25 PM CDT THYROID DISORDER [ICD-9-CM] documented in this encounter Results * TSH (06/28/2012 6:25 PM CDT) TSH 3.34 0.30 - 4.80 uIU/mL 06/28/2012 11:19 PM CDT [facility]ORAT[facility] SERVICES [facility] Blood specimen (specimen) 06/28/2012 6:25 PM CDT 06/28/2012 9:59 PM CDT Jose Hess NP CHEMISTRY ORDERABLES Final R esult [facility] - [place] CLIA # [id number] [address] [place] [address] * (ABNORMAL) CBC WITH DIFFERENTIAL (06/28/2012 6:25 PM CDT) WBC 9.3 4.0 - 10.0 K/uL 06/28/2012 10:22 PM CDT [facility] - [place] RBC 4.83 3.93 - 5.22 M/uL 06/28/2012 10:22 PM CDT [facility] [place] HEMOGLOBIN 15.2 11.2 - 15.7 g/dL 06/28/2012 10:22 PM CDT [facility] [place] HEMATOCRIT 44.2 34.1 - 44.9 % 06/28/2012 10:22 PM CDT [facility] [place] MCV 91.5 79.4 - 94.8 fL 06/28/2012 10:22 PM CDT [facility] [place] MCH 31.5 25.6 - 32.2 pg 06/28/2012 10:22 PM CDT [facility] [place] MCHC 34.4 32.2 - 35.5 g/dL 06/28/2012 10:22 PM CDT [facility] [place] RDW 13.3 11.0 - 14.5 % 06/28/2012 10:22 PM CDT [facility] [place] RDW-STDEV 43.6 fL 06/28/2012 10:22 PM CDT [facility] [place] PLATELETS 184 163 - 337 K/uL 06/28/2012 10:22 PM CDT [facility] [place] MPV 11.8 10.0 - 14.8 fL 06/28/2012 10:22 PM CDT [facility] [place] NEUTROPHILS 54 34 - 71 % 06/28/2012 10:22 PM CDT [facility] [place] LYMPHOCYTES 34 19 - 52 % 06/28/2012 10:22 PM CDT [facility] [place] MONOCYTES 9 5 - 13 % 06/28/2012 10:22 PM CDT [facility] [place] EOSINOPHILS 3 1 - 6 % 06/28/2012 10:22 PM CDT [facility] [place] BASOPHILS 0 0 - 1 % 06/28/2012 10:22 PM CDT [facility] [place] NEUTROPHIL ABSOLUTE 5.00 1.56 - 6.13 K/uL 06/28/2012 10:22 PM CDT [facility] [place] LYMPHOCYTE ABSOLUTE 3.17 1.20 - 3.40 K/uL 06/28/2012 10:22 PM CDT [facility] [place] MONOCYTE ABSOLUTE 0.86(H) 0.24 - 0.36 K/uL 06/28/2012 10:22 PM CDT [facility] [place] EOSINOPHIL ABSOLUTE 0.23 0.04 - 0.36 K/uL 06/28/2012 10:22 PM CDT [facility] [place] BASOPHILS ABSOLUTE 0.03 0.01 - 0.08 K/uL 06/28/2012 10:22 PM CDT [facility] [place] Blood specimen (specimen) 06/28/2012 6:25 PM CDT 06/28/2012 9:59 PM CDT us Jose Hess NP HEMATOLOGY ORDERABLES Final Result Performing Organization Address City/State/[facility] Co de Phone Number [facility] [place] CLIA # [id number] [address] [place] [address] [address] [place] [address] documented in this encounter Visit Diagnoses Diagnosis Thyroid disorder Unspecified disorder of thyroid documented in this encounter Additional Health Concerns Infection Onset Date Last Indicated Resolved Time R/O COVID-19 12/04/2020 12/04/2020 12/05/2020 2:02 AM ADMINISTRATIVE SUPPORT ASSOC documented as of this encounter Care Teams Gravedigger Relationship Specialty Start Date End Date Meg Sargent FNP [address] [place] [address] PCP - General Nurse Practitioner Family 12/04/20 documented as of this encounter
--- OUTSIDE RECORDS SUMMARY | 2025-06-05 22:50 | XMS_ITS | Encounter Summary ---
Author Organization [facility] Address [address] [place] [address] Care Team Providers Care Senior Recruitment Consultant Name Role Phone Sargent, Meg JEAN Primary Care Provider [phone] Encounter Details Date Type Department Care Team (Late st Contact Info) Description 02/08/2019 Lab Requisition [facility] Laboratory Services [address] [place] [address] Brooks Cruz, [address] [address] Social History Tobacco Use Types Packs/Day Years Used Date Smoking Tobacco: Every Day Cigarettes 1 20 Smokeless Tobacco: Never Alcohol Use Standard Drinks/Week Comments No 0 (1 standard drink = 0.6 oz pur e alcohol) Comments No Sex and Gender Information Value Date Recorded Sex Assigned at Not on file Legal Sex Female 1:20 PM INTERNAL CONTROL SPECIALIST Gender Identity Not on file Sexual Orientation [...] Date/Time Associated Diagnosis Comments HEMOGLOBIN A1C Routine 02/08/2019 6:26 AM CDT LIPID PANEL Routine 02/08/2019 6:26 AM CDT COMPREHENSIVE METABOLIC PANEL Routine 02/08/2019 6:26 AM CDT documented in this encounter Results * HEMOGLOBIN A1C (02/08/2019 6:26 AM CDT) HEMOGLOBIN A1C 5.8 4.0 - 6.0 % 02/09/2019 12:56 PM CDT [facility] EST. AVG GLUCOSE, A1C 120 mg/dL 02/09/2019 12:56 PM CDT [facility] Blood Collection / Unknown 02/08/2019 6:26 AM CDT 02/08/2019 1:07 PM CDT [facility] - 02/09/2019 12:56 PM CDT HGB A1C INTERPRETATION NORMAL: <5.7% PRE-DIABETES: 5.7 - 6.4% DIABETES: 6.5% OR GREATER us Brooks Cruz DO CHEMISTRY ORDERABLES Final R esult [facility] CLIA# [id number] [address] [place] [address] * (ABNORMAL) LIPID PANEL (02/08/2019 6:26 AM CDT) Pathologist [facility] CHOLESTEROL 156 <200 mg/dL 02/08/2019 2:51 PM CDT [facility] TRIGLYCERIDE 275(H) <150 mg/dL 02/08/2019 2:51 PM CDT [facility] HDL 31(L) 40 - 59 mg/dL 02/08/2019 2:51 PM CDT [facility] LDL CALCULATED 70 <100 mg/dL 02/08/2019 2:51 PM CDT [facility] NON-HDL CHOLESTEROL 125 <130 mg/dL 02/08/2019 2:51 PM CDT [facility] Blood Collection / Unknown 02/08/2019 6:26 AM CDT 02/08/2019 1:07 PM CDT [facility] - 02/08/2019 2:51 PM CDT TOTAL CHOLESTEROL mg/dL Desirable <200 [...] Cruz DO CHEMISTRY ORDERABLES Final R esult [facility] CLIA# [id number] [address] [place] [address] * (ABNORMAL) COMPREHENSIVE METABOLIC PANEL (02/08/2019 6:26 AM CDT) SODIUM 138 136 - 145 mmol/L 02/08/2019 2:51 PM CDT [facility] POTASSIUM 4.4 3.5 - 5.1 mmol/L 02/08/2019 2:51 PM CDT [facility] CHLORIDE 103 98 - 107 mmol/L 02/08/2019 2:51 PM CDT [facility] CO2 25 22 - 29 mmol/L 02/08/2019 2:51 PM CDT [facility] CALCIUM 9.3 8.6 - 10.0 mg/dL 02/08/2019 2:51 PM CDT [facility] BUN 13 6 - 20 mg/dL 02/08/2019 2:51 PM CDT [facility] CREATININE 1.00(H) 0.51 - 0.95 mg/dL 02/08/2019 2:51 PM CDT [facility] GLUCOSE 102(H) 74 - 99 mg/dL 02/08/2019 2:51 PM CDT [facility] TOTAL PROTEIN 7.2 6.4 - 8.3 g/dL 02/08/2019 2:51 PM CDT [facility] ALBUMIN 3.9 3.5 - 5.2 g/dL 02/08/2019 2:51 PM CDT [facility] BILIRUBIN TOTAL 0.4 0.2 - 1.0 mg/dL 02/08/2019 2:51 PM T [facility] ALKALINE PHOSPHATASE 102 35 - 104 U/L 02/08/2019 2:51 PM CDT [facility] AST 27 10 - 35 U/L 02/08/2019 2:51 PM [facility] ALT 31 <=35 U/L 02/08/2019 2:51 PM T [facility] GFR 60 >=60 mL/min/1. 73 sq meter 02/08/2019 2:51 PM [facility] Comment: eGFR has not been validated for [...] GFR, >60 >=60 mL/min/1. 73 sq meter 02/08/2019 2:51 PM CDT [facility] ANION GAP 10 9 - 20 mmol/L 02/08/2019 2:51 PM [facility] Blood Collection / Unknown 02/08/2019 6:26 AM CDT 02/08/2019 1:07 PM CDT us Brooks Cruz DO CHEMISTRY ORDERABLES Final R esult [facility] CLIA# [id number] [address] [place] [address] documented in this encounter Visit Diagnoses Not on filedocumented in this encounter Additional Health Concerns Infection Onset Date Last Indicated Resolved Time R/O COVID-19 12/04/2020 12/04/2020 12/05/2020 2:02 AM INTERNAL CONTROL SPECIALIST documented as of this encounter Care Teams Senior Recruitment Consultant Relationship Specialty Start Date End Date Sargent, JEAN Weaver [address] [place] [address] PCP - General Nurse Practitioner Family 12/04/20 documented as of this encounter
--- OUTSIDE RECORDS SUMMARY | 2025-06-05 22:50 | XMS_ITS | Clinical Summary ---
Author Organization [facility] Address [address] [facility] [address] [place] [address] Phone Care Team Providers Care Soap Worker Name Role Phone Sargent, Meg JEAN Primary Care Provider [phone] Allergies Active Allergy Reactions Criticality Noted Date Comments Codeine Other (See Comments) 04/15/2014 Garg abdomen Medications ALPRAZolam (XANAX) 0.5 mg tablet Take 0.5 mg by mouth every 4 hours as needed for Anxiety. Active clopidogreL (PLAVIX) 75 mg Tablet Take 75 mg by mouth. Active sertraline (ZOLOFT) 50 mg tablet Take 50 mg by mouth daily. Active aspirin (WILNER CHEWABLE) 81 mg Tablet, Chewable Take 81 mg by mouth daily. Active pantoprazole (PROTONIX) 40 mg Tablet, Delayed Release (E.C.) Take 40 mg by mouth daily. Active nitroglycerin (NITROSTAT) 0.4 mg Tablet, Sublingual Place 1 Tablet (0.4 mg) under tongue every 5 minutes as needed for Chest Pain. Not to exceed 3 doses, notify physician if chest pain not relieved, hold if systolic BP is less than or equal to 90 mmHg. Do NOT chew, crush, or swallow whole - for sublingual use 25 Tablet 12/06/2020 3:53 PM DUMP ATTENDANT 1 Active docusate sodium (STOOL SOFTENER ORAL) Take by mouth 1 time daily as needed. Active lisinopriL (PRINIVIL) 5 mg tablet Take 1 Tablet (5 mg) by mouth daily. 90 Tablet 3 1 Active levothyroxine 150 mcg tablet Take 150 mcg by mouth daily in the morning. Active metoprolol tartrate (LOPRESSOR) 25 mg tablet TAKE 1/2 TABLET (12.5 MG) BY MOUTH 2 TIMES DAILY 30 Tablet 11 1 Active ranolazine (RANEXA) 1,000 mg Extended Release 12 hour tablet Take 1 Tablet (1,000 mg) by mouth every 12 hours. 180 Tablet 3 1 Active cpap medical deviceIndicatio ns:Obstructive sleep apnea (adult) (pediatric) CPAP @ 8 cwp with heated humidifier. Length of need:99 months; full face mask with headgear every 6 months; mask only every 3 months; 1 cushions per month; Tubing heated 1 every 3 months, water chamber 1 every 6 months, chin strap 1 every 6 months, filters disposable 2 per month, filters reusable 1 per 6 months. 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 12/05/2020 Precordial chest pain 12/05/2020 Morbid obesity with BMI of 50.0-59.9, adult 11/10 Essential hypertension 12/05/2020 Generalized anxiety disorder 12/05/2020 Fatigue 12/05/2020 Lateral epicondylitis of elbow 03/07/2015 Tendonitis of wrist, right 09/18/2014 Wrist sprain 09/01/2014 Vertigo 12/30/2012 Acquired hypothyroidism 12/29/2012 Mixed hyperlipidemia Microvascular angina Acute on chronic congestive heart failure Immunizations Immunization Administration Dates Next Due (ADACEL/BOOSTRIX)(10 YR UP) TDAP VACCINE, 0.5ML, IM 04/21/2013 Family History Medical History Relation Name Comments Other Brother RA Heart Disease Father heart att ack age 46 Unknown Maternal Grandfather Diabetes Maternal Grandmother Respiratory Disease Maternal Grandmother Other Mother lupus, sclerade rma Respiratory Disease Mother Heart Disease Paternal Grandmother Stroke Paternal Grandmother Other Sister dvt Breast Cancer Neg Hx Colon Cancer Neg Hx Relation Name Status Comments Brother Alive Father Maternal Grandfather Maternal Grandmother Alive Mother Alive Paternal Grandmother Sister Alive Social History Tobacco Use Types Packs/Day Years Used Date Smoking Tobacco: Every Day Cigarettes 1 20 Smokeless Tobacco: Never Tobacco Cessation:Ready to Q uit: No; Counseling Given: Yes Alcohol Use Standard Drinks/Week Comments No 0 (1 standard drink = 0.6 oz pur e alcohol) Comments No Sex and Gender Information Value Date Recorded Sex Assigned at Not on file Legal Sex Female 1:20 PM DUMP ATTENDANT Gender Identity Not on file Sexual Orientation Not on file Occupation Industry Job Start Date Job End Date Not on file Not on file Not on file Not on file Not on file Not on file Not on file Not on file Last Filed Vital Signs Vital Sign Reading Time Taken Comments Blood Pressure 120/82 04/04/2021 10:30 AM CDT Pulse 73 04/04/2021 10:30 AM CDT Temperature 36.1 C (97 F) 01/11/2021 12:04 PM DUMP ATTENDANT Respiratory Rate 19 01/11/2021 1:54 PM DUMP ATTENDANT Oxygen Saturation 98% 04/04/2021 10:30 AM CDT Inhaled Oxygen Concentration - - Weight 152.4 kg (336 lb) 04/04/2021 10:30 AM CDT Height 167.6 cm (5' 6 ) 04/04/2021 10:30 AM CDT Body Mass Index 54.23 04/04/2021 10:30 AM CDT Plan of Treatment Health Maintenance Due Date Last Done Comments HEPATITIS B VACCINES (1 of 3 - 19+ 3-dose series) 1994 HPV/Cotest (21-29) 01/27/1996 CERVICAL CANCER SCREENING 2005 HPV/Cotest (30-65) 2005 PAP SMEAR 2005 BREAST CANCER SCREENING 2015 COLORECTAL SCREENING 01/27/2020 Colorectal Cancer Screening 01/27/2020 FIT-DNA Q 3 years 01/27/2020 FIT/FOBT Q 1 year 01/27/2020 Flex Sig/CT Colonography Q 5 years 01/27/2020 Pre-Diabetes and Diabetes Screening 02/08/2022 02/08/2019, 02/16/2018, 02/27/2016 DTAP/TDAP/TD VACCINES (3 - T d or Tdap) 04/21/2023 04/21/2013, 03/09/2013 ZOSTER VACCINE (1 of 2) 2025 INFLUENZA VACCINE (#1) 2025 9, 08/25/2018, 08/24/2017 Procedures Procedure Name Priority Date/Time Associated Diagnosis Comments HEMOGLOBIN A1C Routine 02/08/2019 6:26 AM CDT from Last 3 Months or Most Recently Relevant to Health Maintenance Results * HEMOGLOBIN A1C (02/08/2019 6:26 AM CDT) HEMOGLOBIN A1C 5.8 4.0 - 6.0 % 02/09/2019 12:56 PM CDT [facility] Care at Hand [facility] EST. AVG GLUCOSE, A1C 120 mg/dL 02/09/2019 12:56 PM CDT [facility] Blood Collection / Unknown 02/08/2019 6:26 AM CDT 02/08/2019 1:07 PM CDT Narrative [facility] - 02/09/2019 12:56 PM CDT HGB A1C INTERPRETATION NORMAL: <5.7% PRE-DIABETES: 5.7 - 6.4% DIABETES: 6.5% OR GREATER Brooks Cruz DO CHEMISTRY ORDERABLES Final R esult [facility] CLIA# [id number] [address] [place] [address] from Last 3 Months or Most Recently Relevant to Health Maintenance [place] [address] [place] [address] [id number] [employer] Commercial Member Subscriber Plan / Payer (Ef fective 2013-Present) Name:Karen Garcia Relation to Subscriber:Employee Name:[employer] Address: [place] [address] Payer ID:Not on file Group ID:Not on file Type:Workers Compensation Address: [address] [id number] WORKERS COMP WORKERS COMP Advance Directives For more information, please contact: [phone] * Full Code (Latest Code Status on File) Date Activated Date Inactivated Comments 12/05/2020 1:17 AM 12/06/2020 5:50 PM Care Teams Soap Worker Relationship Specialty Start Date End Date Meg Sargent FNP [address] [place] [address] PCP - General Nurse Practitioner Family 12/04/20
--- OUTSIDE RECORDS SUMMARY | 2025-06-05 22:50 | XMS_ITS | Encounter Summary ---
Author Organization [facility] Address [address] [place] [address] Care Team Providers Care Bakery Supervisor Name Role Phone Sargent, Meg ORDER DESK CALLER Primary Care Provider [phone] Encounter Details Date Type Department Care Team (Late st Contact Info) Description 02/27/2016 Lab Requisition [facility] [address] [place] [address] Travis Lujan MD NO ADDRESS ON FILE Social History Tobacco Use Types Packs/Day Years Used Date Smoking Tobacco: Every Day Cigarettes 1 20 Smokeless Tobacco: Never Alcohol Use Standard Drinks/Week Comments No 0 (1 standard drink = 0.6 oz pur e alcohol) Comments No Sex and Gender Information Value Date Recorded Sex Assigned at Not on file Legal Sex Female 1:20 PM LASTING ROOM SUPERVISOR Gender Identity Not on file Sexual Orientation [...] Procedure Name Priority Date/Time Associated Diagnosis Comments GLUCOSE FASTING Routine 02/27/2016 8:27 AM CDT LIPID PANEL Routine 02/27/2016 8:27 AM CDT documented in this encounter Results * GLUCOSE FASTING (02/27/2016 8:27 AM CDT) GLUCOSE-FASTIN G 78 70 - 99 mg/dL 02/27/2016 2:[facility] / Unknown 02/27/2016 8:27 AM CDT 02/27/2016 12:51 PM CDT [facility] - 02/27/2016 2:43 PM CDT <100 mg/dl: Normal Fasting Glucose 100-125 mg/dl: Impaired Fasting Glucose >/=126 mg/dl: Provisional diagnosis of Diabetes The diagnosis must be confirmed. us Travis Lujan MD CHEMISTRY ORDERABLES Final Res ult [facility] CLIA# [id number] [address] [place] [id number] * (ABNORMAL) LIPID PANEL (02/27/2016 8:27 AM CDT) CHOLESTEROL 231(H) <200 mg/dL 02/27/2016 2:43 PM CDT [facility] TRIGLYCERIDE 106 <150 mg/dL 02/27/2016 2:43 PM CDT [facility] HDL 36(L) 40 - 59 mg/dL 02/27/2016 2:43 PM T [facility] LDL CALCULATED 174(H) <100 mg/dL 02/27/2016 2:43 PM T [facility] NON-HDL CHOLESTEROL 195(H) <130 mg/dL 02/27/2016 2:43 PM CDT [facility] Blood Collection / Unknown 02/27/2016 8:27 AM CDT 02/27/2016 12:51 PM CDT [facility] - 02/27/2016 2:43 PM CDT TOTAL CHOLESTEROL mg/dL Desirable <200 Borderline high 200-239 High >=240 TRIGLYCERIDES mg/dL Normal <150 Borderline high 150-199 High 200-499 Very high >=500 HDL CHOLESTEROL mg/dL Low <40 Normal 40-59 Desirable >=60 LDL CHOLESTEROL mg/dL Optimal <100 Low risk 100-129 Borderline high 130-159 High 160-189 Very high >=190 NON HDL CHOLESTEROL mg/dL Optimal <130 Near Optimal 130-159 Borderline High 160-189 High 190-219 Very high >=220 Based on AHA/NCEP Guidelines us Travis Lujan MD CHEMISTRY ORDERABLES Final Res ult [facility] CLIA# [id number] [address] [place] [address] documented in this encounter Visit Diagnoses Not on filedocumented in this encounter Additional Health Concerns Infection Onset Date Last Indicated Resolved Time R/O COVID-19 12/04/2020 12/04/2020 12/05/2020 2:02 AM LASTING ROOM SUPERVISOR documented as of this encounter Care Teams Bakery Supervisor Relationship Specialty Start Date End Date Meg Sargent FNP [address] [place] [address] PCP - General Nurse Practitioner Family 12/04/20 documented as of this encounter
--- OUTSIDE RECORDS SUMMARY | 2025-06-05 22:51 | XMS_ITS | Encounter Summary ---
Author Organization [facility] Address [address] [place] [address] Care Team Providers Care Tack Puller Machine Name Role Phone Sargent, Meg JEAN Primary Care Provider [phone] Encounter Details Date Type Department Care Team (Late st Contact Info) Description 02/09/2012 Ancillary Orders [facility] General Laboratory Services [facility] [address] [place] [address] Hypothyroidism; HTN (hypertension) Social History Tobacco Use Types Packs/Day Years Used Date Smoking Tobacco: Never Assessed Comments Unknown Sex and Gender Information Value Date Recorded Sex Assigned at Not on file 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 Gender Identity Not on file Sexual Orientation Not on file documented as of this encounter Plan of Treatment Not on file documented as of this encounter Procedures Procedure Name Priority Date/Time Associated Diagnosis Comments CBC WITH DIFFERENTIAL Stat 02/09/2012 7:40 PM CDT HYPOTHYROIDISM [ICD-9-CM] HTN (HYPERTENSION) [ICD-9-CM] TSH Stat 02/09/2012 7:40 PM CDT HYPOTHYROIDISM [ICD-9-CM] HTN (HYPERTENSION) [ICD-9-CM] COMPREHENSIVE METABOLIC PANEL Stat 02/09/2012 7:40 PM CDT HYPOTHYROIDISM [ICD-9-CM] HTN (HYPERTENSION) [ICD-9-CM] documented in this encounter Results * TSH (02/09/2012 7:40 PM CDT) TSH 3.69 0.30 - 4.80 uIU/mL 02/10/2012 12:02 AM T [facility] Blood specimen (specimen) 02/09/2012 7:40 PM CDT 02/09/2012 10:45 PM CDT Odin Santa DO CHEMISTRY ORDERABLES Final Resu lt [facility] CLIA # [id number] [address] [place] [id number] * (ABNORMAL) COMPREHENSIVE METABOLIC PANEL (02/09/2012 7:40 PM CDT) SODIUM 138 136 - 145 mmol/L 02/10/2012 12:01 AM T [facility] [employer] [facility] POTASSIUM 3.6 3.5 - 5.1 mmol/L 02/10/2012 12:01 AM [facility] [employer] [facility] CHLORIDE 102 98 - 107 mmol/L 02/10/2012 12:01 AM T [facility] CO2 29 21 - 32 mmol/L 02/10/2012 12:01 AM T [facility] CALCIUM 8.7 8.5 - 10.1 mg/dL 02/10/2012 12:01 AM T [facility] [place] BUN 9 7 - 18 mg/dL 02/10/2012 12:01 AM T [facility] [employer] [facility] CREATININE 1.10 0.60 - 1.30 mg/dL 02/10/2012 12:01 AM [facility] [employer] LAB[facility] GLUCOSE 73(L) 74 - 106 mg/dL 02/10/2012 12:01 AM T [facility] SERVICES [facility] TOTAL PROTEIN 7.0 6.4 - 8.2 g/dL 02/10/2012 12:01 AM T [facility] [place] ALBUMIN 3.6 3.4 - 5.0 g/dL 02/10/2012 12:01 AM T [facility] BILIRUBIN TOTAL 0.4 0.2 - 1.0 mg/dL 02/10/2012 12:01 AM [facility] [employer] LAB[facility]AT[facility] ALKALINE PHOSPHATASE 97 50 - 136 U/L 02/10/2012 12:01 AM CDT [facility] AST 16 15 - 37 U/L 02/10/2012 12:01 AM CDT [facility] ALT 31 30 - 65 U/L 02/10/2012 12:01 AM CDT [facility] GFR 56(L) >=60 mL/min/1.7 3 sq meter 02/10/2012 12:01 AM CDT [facility] GFR, 68 >=60 mL/min/1.7 3 sq meter 02/10/2012 12:01 AM T [facility] Blood specimen (specimen) 02/09/2012 7:40 PM CDT 02/09/2012 10:45 PM CDT [facility] - 02/10/2012 12:01 AM CDT eGFR has not been validated for use in the elderly (> 70 years of age), women, patients with serious co-morbid conditions, or persons with extremes of body size or muscle mass and should also be interpreted with caution in patients with acute kidney failure, dialysis dependant patients, patients reporting exceptional dietary intake (e.g. vegetarian diet, high protein diets, creatine supplementation), and patients with severe liver disease. Odin Santa DO CHEMISTRY ORDERABLES Final Resu lt [facility] CLIA # [id number] [address] [place] [address] * (ABNORMAL) CBC WITH DIFFERENTIAL (02/09/2012 7:40 PM CDT) WBC 9.5 4.0 - 10.0 K/uL 02/09/2012 11:57 PM CDT [facility] RBC 4.50 3.93 - 5.22 M/uL 02/09/2012 11:57 PM CDT [facility] HEMOGLOBIN 14.2 11.2 - 15.7 g/dL 02/09/2012 11:57 PM CDT [facility] HEMATOCRIT 42.0 34.1 - 44.9 % 02/09/2012 11:57 PM CDT [facility] MCV 93.3 79.4 - 94.8 fL 02/09/2012 11:57 PM CDT [facility] MCH 31.6 25.6 - 32.2 pg 02/09/2012 11:57 PM CDT [facility] MCHC 33.8 32.2 - 35.5 g/dL 02/09/2012 11:57 PM CDT [facility] RDW 12.8 11.0 - 14.5 % 02/09/2012 11:57 PM CDT [facility] RDW-STDEV 43.0 fL 02/09/2012 11:57 PM CDT [facility] PLATELETS 203 163 - 337 K/uL 02/09/2012 11:57 PM CDT [facility] MPV 11.5 10.0 - 14.8 fL 02/09/2012 11:57 PM CDT [facility] NEUTROPHILS 53 34 - 71 % 02/09/2012 11:57 PM CDT [facility] LYMPHOCYTES 36 19 - 52 % 02/09/2012 11:57 PM CDT [facility] MONOCYTES 9 5 - 13 % 02/09/2012 11:57 PM CDT [facility] EOSINOPHILS 2 1 - 6 % 02/09/2012 11:57 PM CDT [facility] BASOPHILS 0 0 - 1 % 02/09/2012 11:57 PM CDT [facility] NEUTROPHIL ABSOLUTE 5.02 1.56 - 6.13 K/uL 02/09/2012 11:57 PM CDT [facility] LYMPHOCYTE ABSOLUTE 3.44(H) 1.20 - 3.40 K/uL 02/09/2012 11:57 PM CDT [facility] MONOCYTE ABSOLUTE 0.81(H) 0.24 - 0.36 K/uL 02/09/2012 11:57 PM CDT [facility] EOSINOPHIL ABSOLUTE 0.20 0.04 - 0.36 K/uL 02/09/2012 11:57 PM CDT [facility] BASOPHILS ABSOLUTE 0.02 0.01 - 0.08 K/uL 02/09/2012 11:57 PM CDT [facility] Blood specimen (specimen) 02/09/2012 7:40 PM CDT 02/09/2012 10:45 PM CDT us Odin Santa DO HEMATOLOGY ORDERABLES Final Res ult [facility] CLIA # [id number] [address] [facility] [address] [place] [address] documented in this encounter Visit Diagnoses Diagnosis Hypothyroidism Unspecified hypothyroidism HTN (hypertension) Unspecified essential hypertension documented in this encounter Additional Health Concerns Infection Onset Date Last Indicated Resolved Time R/O COVID-19 12/04/2020 12/04/2020 12/05/2020 2:02 AM 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
--- NOTE | 2025-06-05 23:06 | CTR_ITS ---
PROCEDURE INFORMATION: Exam: CT Abdomen And Pelvis With Contrast Exam date and time: 06/05/2025 11:47 PM Age: 50 years old Clinical indication: Abdominal pain; Acute; Prior surgery; Surgery date: <1 month; Surgery type: Gastric bypass x2 weeks ago; Sudden onset left upper quadrant after lifting grandchild. 2 weeks post op gastric bypass; Additional info: Post op gastric bypass pain TECHNIQUE: Imaging protocol: Computed tomography of the abdomen and pelvis with contrast. Radiation optimization: All CT scans at this facility use at least one of these dose optimization techniques: automated exposure control; mA and/or kV adjustment per patient size (includes targeted exams where dose is matched to clinical indication); or iterative reconstruction. Contrast material: OMNI 350; Contrast volume: 100 ml; Contrast route: INTRAVENOUS (IV); COMPARISON: CT abdomen pelvis w con* [id number] 02/15/2025 7:43 PM RADIATION DOSE METRICS: Total DLP (mGy-cm): 1643 FINDINGS: Liver: Cirrhosis. Gallbladder and biliary ducts: Absent gallbladder. Pancreas: Unremarkable. Spleen: 15 cm splenomegaly. Adrenal glands: Unremarkable. Kidneys and ureters: Unremarkable. No urinary tract stone or dilation. Stomach and bowel: Postsurgical changes involving bowel. Small fecal load. No bowel obstruction. Appendix: Normal appendix. Intraperitoneal space: Small volume free pelvic fluid. Vasculature: Severe narrowing of the bilateral iliac arteries. Lymph nodes: No enlarged lymph nodes. Urinary bladder: Unremarkable as visualized. Reproductive: No obvious abnormality. Bones/joints: No acute fracture. Soft tissues: Right anterior abdominal wall fluid density lesion, potentially a resolving hematoma. CT/CT abdomen pelvis w con* [id number] IMPRESSION: 1. Cirrhosis. Splenomegaly. 2. Prior gastric bypass. 3. Small volume free pelvic fluid. 4. Severe narrowing of the bilateral iliac arteries.
[2025-06-05] MEDS: iohexol 350 mg/mL 500 mL Btl (per mL) IV (23:13)
[2025-06-05] MEDS: ondansetron 2 mg/ML SDV 2 mL 4 MG IVP (23:18)
[2025-06-05 23:20] VITALS: RESP 22
[2025-06-05] MEDS: morphine 4 mg/mL SDV 1 mL IVP (23:20)
[2025-06-05 23:21] LABS: Hematocrit 44.8 % (36-47); Hemoglobin 15.00 g/dL (11.27-16.99); Mean Corpuscular HGB Conc 33.5 g/dL (30-55); Mean Corpuscular Hemoglobin 32.0 pg (27-33); Mean Corpuscular Volume 95.5 fl (85-98); Nucleated Red Blood Cells % 0 %; Platelet Count 215 10^3/cmm (157-399); Red Blood Count 4.69 10^6/uL (3.85-5.65); White Blood Count 8.51 10^3/uL (3.29-11.43)
[2025-06-05 23:26] LABS: HCG, Serum Qual Negative (Negative)
[2025-06-05 23:34] LABS: Alanine Aminotransferase 35 U/L (0-33); Albumin Level 4.1 g/dL (3.5-5.2); Alkaline Phosphatase 122 U/L (35-105); Anion Gap 19.7 (5-19); Aspartate Amino Transferase 51 U/L (0-32); Blood Urea Nitrogen 14 mg/dL (6-20); Calcium 9.7 mg/dL (8.5-10.5); Carbon Dioxide 24 mmol/L (22-29); Chloride 98 mmol/L (98-107); Creatinine Clr Calc Pharmacy 99.1066; Globulin 4.1 g/dL (1.3-4.6); Glucose 93 mg/dL (65-115); Lipase 49 U/L (13-60); Osmolality Calculated 284 mOsm/kg (285-295); Potassium 4.7 mmol/L (3.5-5.1); Sodium 137 mmol/L (136-145); Total Protein 8.2 g/dL (6.6-8.7)
[2025-06-06] VITALS: BP 129/65; PULSE 69; RESP 16; O2SAT 98
--- NOTE | 2025-06-06 00:16 | W.ED.ABDPA2 ---
HPI - Abdominal Pain General: Chief Complaint: Abdominal Pain Stated Complaint: Surgery 2 weeks ago, [place] ripping in pain Time Seen by Provider: 06/05/25 23:05 History of Present Illness: Patient is 50-year-old female that underwent gastric bypass 2 weeks ago, reached over to molded goods spot picker her granddaughter and slider lap, then had a severe left upper quadrant pain. She has association of nausea without emesis. Associated Symptoms: Reports nausea; Denies chills, fever(s) and vomiting Related Data Home Medications ?Medication ?Instructions ?Recorded ?Confirmed pramipexole 0.5 mg tablet 0.5 mg PO DAILY PRN Restless Leg(S) 04/04/22 04/26/25 ranolazine 1,000 mg 1,000 mg PO Q12H 12/22/22 04/26/25 tablet,extended release,12 hr celecoxib 100 mg capsule (Celebrex) 100 mg PO DAILY 12/17/23 04/26/25 ezetimibe 10 mg tablet 10 mg PO BEDTIME 06/17/24 04/26/25 evolocumab 140 mg/mL subcutaneous 140 mg SUBCUT Q14D 08/01/24 04/26/25 pen injector (Savage Kaur) budesonide-formoterol HFA 160 2 puff inhalation BID 08/29/24 04/26/25 mcg-4.5 mcg/actuation aerosol inhaler (Symbicort) furosemide 40 mg tablet (Lasix) 40 mg PO DAILY 08/29/24 04/26/25 sucralfate 1 gram tablet 1 g PO .4 times daily 08/29/24 04/26/25 isosorbide mononitrate 60 mg 120 mg PO DAILY 09/30/24 04/26/25 tablet,extended release 24 hr levothyroxine 150 mcg tablet 150 mcg PO DAILY 11/14/24 04/26/25 triamcinolone acetonide 0.5 % 1 applic topical BID 11/14/24 04/26/25 topical ointment semaglutide 0.25 mg or 0.5 mg (2 mg SUBCUT 12/26/24 04/26/25 mg/1.5 mL) subcutaneous pen injector (Ozempic) empagliflozin 10 mg tablet 10 mg PO QAM 01/10/25 04/26/25 (Jardiance) insulin glargine 100 unit/mL 10 unit SUBCUT .Q HS 01/10/25 04/26/25 subcutaneous solution (Lantus U-100 Insulin) omeprazole 20 mg capsule,delayed 20 mg PO DAILY 02/07/25 04/26/25 release Previous Rx's ?Medication ?Instructions ?Recorded lisinopril 10 mg tablet 10 mg PO DAILY #30 tabs 06/18/24 alprazolam 0.25 mg tablet (Xanax) 0.25 mg PO DAILY PRN anxiety #15 08/09/24 tabs metoprolol succinate 50 mg 25 mg (1/2 x 50 mg) PO DAILY 30 11/18/24 tablet,extended release 24 hr days #30 tabs mupirocin calcium 2 % topical cream 1 applic topical TID #30 grams 02/01/25 mometasone 0.1 % topical cream 1 applic topical TID #45 grams 02/16/25 venlafaxine 150 mg 150 mg PO DAILY #30 caps 04/06/25 capsule,extended release 24 hr (Effexor XR) aripiprazole 2 mg tablet (Abilify) 2 mg PO DAILY #30 tabs 04/26/25 modafinil 200 mg tablet (Provigil) 200 mg PO DAILY #30 tabs 04/26/25 methocarbamol 500 mg tablet 500 mg PO Q8H PRN muscle spasm #30 06/06/25 tabs ofloxacin 0.3 % ear drops 10 drp otic (ear) DAILY 7 days #10 06/06/25 mL Allergies Allergy/AdvReac Type Severity Reaction Status Date / Time codeine Allergy Unknown Unknown Verified 06/05/25 22:55 Review of Systems General: Reports: 10 or more systems reviewed and unremarkable except in HPI and below Const: Denies: fever(s) or chills Eyes: Denies: change in vision or blurry vision ENMT: Reports: ear or mastoid pain; Denies: throat pain, uvular edema, enlarged tonsils or hoarseness Card: Denies: chest pain or palpitations Resp: Denies: dyspnea or non-productive cough GI: Reports: abdominal pain and nausea; Denies: vomiting or dysphagia : Denies: flank pain or difficulty voiding Musc: Denies: neck pain, back pain or extremity pain Skin/Breast: Denies: rash or pruritus Neuro: Denies: headache(s) or numbness in extremities Psych: Reports: anxiety; Denies: depression Endo: Denies: polyuria or polydipsia John/Lymph: Denies: easy bruising or easy bleeding PFSH ED PFSH: Medical History (Updated 06/06/25 @ 00:47 by RODDY Latif) Nicotine use disorder History of coronary artery disease Unstable angina pectoris Unstable angina Obesity, morbid, BMI 50 or higher Unstable angina Panic disorder Generalized anxiety disorder Psychiatric care Anxiety GERD (gastroesophageal reflux disease) Hypothyroidism Coronary artery disease Surgical History History of cholecystectomy History of tonsillectomy History of tubal ligation History of hysterectomy History of coronary artery bypass graft Family History Other CAD (coronary artery disease) Stroke Social History Smoking and tobacco/nicotine status: current every day tobacco/nicotine user Alcohol intake: never Physical Exam Const: COMMON NORMALS: patient oriented x3 HENMT: COMMON NORMALS: normocephalic, atraumatic and TM's normal bilaterally HEAD & SCALP: normocephalic and atraumatic EXTERNAL AUDITORY CANAL: Abnormal EAC present EAC laterality: left Details: erythema and edema TYMPANIC MEMBRANE: TM's normal bilaterally MOUTH: Normal oral and palatal mucosa present TEETH & GINGIVA: no abnormal tooth and associated gingiva THROAT: posterior oropharynx normal; no uvular edema Neck/C-Spine: COMMON NORMALS: full ROM, no lymphadenopathy and supple Lymph: LYMPHATIC: no lymphadenopathy noted Chest: COMMONS NORMALS: normal inspection of the chest and normal palpation of entire chest wall Resp: COMMON NORMALS: normal respiratory effort and clear to auscultation bilaterally AUSCULTATION: clear to auscultation bilaterally Cardio: COMMON NORMALS: regular rate and regular rhythm RATE: regular rate RHYTHM: regular rhythm GI: COMMON NORMALS: Normal to inspection, nondistended, normoactive bowel sounds present and Soft to palpation PALPATION: Yes Soft to palpation : COMMON NORMALS: Yes no CVA tenderness BLADDER/KIDNEY EXAM: Yes no CVA tenderness Back/Pelvis: COMMON NORMALS: no CVA tenderness Extremity: COMMON NORMALS: normal to inspection, full ROM and capillary refill normal Neuro: COMMON NORMALS: patient oriented x3, CN's II-XII intact bilaterally and moves all extremities Psych: COMMON NORMALS: mental status grossly normal and Normal thought process present THOUGHT PROCESS: Normal thought process present Skin: COMMON NORMALS: no rashes or lesions noted and no wounds GENERAL SKIN EXAM: no rashes or lesions noted Course Vital Signs: Vital signs: Vital Signs Temperature 98.0 F 06/05/25 22:50 Pulse Rate 69 06/06/25 00:00 Respiratory Rate 16 06/06/25 00:00 Blood Pressure 129/65 06/06/25 00:00 Pulse Oximetry 98 06/06/25 00:00 Oxygen Delivery Me thod Room Air 06/06/25 00:00 MDM - Abdominal Pain Medical Decision Making Patient is a 50-year-old female with recent gastric bypass and picking up her granddaughter, with left lateral upper abdominal pain. Symptoms are consistent with a pulled muscle. CT is without any additional findings. Discussed with patient. There is a slight amount of density change on that left lateral side on the CT on my view, which could represent an inflammatory change locally. Her spleen shows splenomegaly, however when compared to February 2025, the this does not appear to be a change to me. As well, she appears to have cirrhosis when compared [id number]. I discussed this with patient. Her LFTs are without change from previous. Suspect this will resolve itself in a few months. I did discuss with her about follow-up with primary care, and need additional investigation such as a liver elasticity MRI/CAT scan/ultrasound. As far as her ear, she did have a redness at 7?8:00 o'clock in her external canal of her right ear, left was without change. Patient states understanding to the above and repeat labs as well. All their questions answered to their satisfaction. Lab Data I reviewed the patient's lab results. 06/05/25 23:05 06/05/25 23:05 Labs/Radiology: Radiology Impressions Abdomen/Pelvis CT 06/05/25 23:06 IMPRESSION: 1. Cirrhosis. Splenomegaly. 2. Prior gastric bypass. 3. Small volume free pelvic fluid. 4. Severe narrowing of the bilateral iliac arteries. Laboratory Results WBC 8.51 10^3/uL (3.29-11.43) 06/05/25 23:05 RBC 4.69 10^6/uL (3.85-5.65) 06/05/25 23:05 Hgb 15.00 g/dL (11.27-16.99) 06/05/25 23:05 Hct 44.8 % (36-47) 06/05/25 23:05 MCV 95.5 fl (85-98) 06/05/25 23:05 MCH 32.0 pg (27-33) 06/05/25 23:05 MCHC 33.5 g/dL (30-55) 06/05/25 23:05 RDW 13.4 % (12.1-15.1) 06/05/25 23:05 Plt Count 215 10^3/cmm (157-399) 06/05/25 23:05 MPV 10.9 fL (7.4-10.4) H 06/05/25 23:05 Neut % (Auto) 60.7 % 06/05/25 23:05 Lymph % (Auto) 29.3 % 06/05/25 23:05 [place] % (Auto) 9.2 % 06/05/25 23:05 Eos % (Auto) 0.0 % 06/05/25 23:05 Baso % (Auto) 0.4 % 06/05/25 23:05 Neut # (Auto) 5.18 10^3/uL (1.8-7.7) 06/05/25 23:05 Lymph # (Auto) 2.5 10^3/uL (0.8-4.8) 06/05/25 23:05 [place] # (Auto) 0.8 10^3/uL (0.2-0.9) 06/05/25 23:05 Eos # (Auto) 0.0 10^3/uL (0.0-0.8) 06/05/25 23:05 Baso # (Auto) 0.0 10^3/uL (0.0-0.1) 06/05/25 23:05 Nucleated RBC % (auto) 0 % 06/05/25 23:05 Nucleated RBCs # 0.0 /100WBC 06/05/25 23:05 Sodium 137 mmol/L (136-145) 06/05/25 23:05 Potassium 4.7 mmol/L (3.5-5.1) 06/05/25 23:05 Chloride 98 mmol/L (98-107) 06/05/25 23:05 Carbon Dioxide 24 mmol/L (22-29) 06/05/25 23:05 Anion Gap 19.7 (5-19) H 06/05/25 23:05 BUN 14 mg/dL (6-20) 06/05/25 23:05 Creatinine 1.0 mg/dL (0.5-0.9) H 06/05/25 23:05 GFR Calculation 58.7 mL/min (90-130) L 06/05/25 23:05 Glucose 93 mg/dL (65-115) 06/05/25 23:05 Calculated Osmolality 284 mOsm/kg (285-295) L 06/05/25 23:05 Calcium 9.7 mg/dL (8.5-10.5) 06/05/25 23:05 Total Bilirubin 0.6 mg/dL (0.15-1.2) 06/05/25 23:05 AST 51 U/L (0-32) H 06/05/25 23:05 ALT 35 U/L (0-33) H 06/05/25 23:05 Alkaline Phosphatase 122 U/L (35-105) H 06/05/25 23:05 Total Protein 8.2 g/dL (6.6-8.7) 06/05/25 23:05 Albumin 4.1 g/dL (3.5-5.2) 06/05/25 23:05 Globulin 4.1 g/dL (1.3-4.6) 06/05/25 23:05 Lipase 49 U/L (13-60) 06/05/25 23:05 HCG, Qual Negative (Negative) 06/05/25 23:05 Urine Color Yellow (Yellow) 06/06/25 00:13 Urine Appearance Clear (CLEAR) 06/06/25 00:13 Urine pH 7.0 (5-7) 06/06/25 00:13 Ur Specific [place] 1.030 (1.005-1.030) 06/06/25 00:13 Urine Protein Negative (Negative) 06/06/25 00:13 Urine Glucose (UA) Negative (Normal) 06/06/25 00:13 Urine Ketones Trace (Negative) 06/06/25 00:13 Urine Blood Negative (Negative) 06/06/25 00:13 Urine Nitrate Negative (Negative) 06/06/25 00:13 Urine Bilirubin Negative (Negative) 06/06/25 00:13 Urine Urobilinogen 1.0 mg/dL (Negative) 06/06/25 00:13 Ur Leukocyte Esterase Trace (Negative) A 06/06/25 00:13 Urine RBC 0-2 /hpf (0-2) 06/06/25 00:13 Urine WBC 0-5 /hpf (0-5) 06/06/25 00:13 Ur Squamous Epith Cells 0-5 /hpf (0-5) 06/06/25 00:13 Amorphous Sediment Not Reportable 06/06/25 00:13 Urine Bacteria None seen /hpf (NONE) 06/06/25 00:13 Hyaline Casts 0-4 /lpf H 06/06/25 00:13 All radiology interpretation(s) finalized by discharge Discharge Plan Discharge Patient Disposition: Home Clinical Impression: Splenomegaly, Abnormal transaminases Actinic otitis externa of right ear Qualifiers: Chronicity: acute Qualified Code(s): H60.511 - Acute actinic otitis externa, right ear Condition: Stable Prescriptions: New ofloxacin 0.3 % drops 10 drp otic (ear) DAILY 7 Days Qty: 10 0RF Rx Instructions: right ear methocarbamol 500 mg tablet 500 mg PO Q8H PRN (Reason: muscle spasm) Qty: 30 0RF No Action Repatha SureClick 140 mg/mL pen injector 140 mg SUBCUT Q14D insulin glargine [Lantus U-100 Insulin] 100 unit/mL solution 10 unit SUBCUT .Q HS Jardiance 10 mg tablet 10 mg PO QAM mupirocin calcium 2 % cream 1 applic topical TID Qty: 30 2RF pramipexole 0.5 mg tablet 0.5 mg PO DAILY PRN (Reason: Restless Leg(S)) celecoxib [Celebrex] 100 mg capsule 100 mg PO DAILY sucralfate 1 gram tablet 1 g PO .4 times daily furosemide [Lasix] 40 mg tablet 40 mg PO DAILY budesonide-formoterol [Symbicort] 160-4.5 mcg/actuation HFA aerosol inhaler 2 puff inhalation BID isosorbide mononitrate 60 mg tablet extended release 24 hr 120 mg PO DAILY Ozempic 0.25 mg or 0.5 mg(2 mg/1.5 mL) pen injector SUBCUT omeprazole 20 mg capsule,delayed release(DR/EC) 20 mg PO DAILY aripiprazole [Abilify] 2 mg tablet 2 mg PO DAILY Qty: 30 2RF modafinil [Provigil] 200 mg tablet 200 mg PO DAILY Qty: 30 1RF mometasone 0.1 % cream 1 applic topical TID Qty: 45 3RF Rx Instructions: apply to arm 3 x / day alprazolam [Xanax] 0.25 mg tablet 0.25 mg PO DAILY PRN (Reason: anxiety) Qty: 15 0RF venlafaxine [Effexor XR] 150 mg capsule,extended release 24hr 150 mg PO DAILY Qty: 30 2RF ranolazine 1,000 mg tablet extended release 12 hr 1,000 mg PO Q12H ezetimibe 10 mg tablet 10 mg PO BEDTIME lisinopril 10 mg tablet 10 mg PO DAILY Qty: 30 3RF triamcinolone acetonide 0.5 % ointment 1 applic TOPICAL BID Rx Instructions: APPLY TO AFFECTED (RED) AREAS ON LEGS. USE TWICE DAILY FOR 2 WEEKS AND THEN ONCE DAILY FOR ONE WEEK, THEN STOP levothyroxine 150 mcg tablet 150 mcg PO DAILY metoprolol succinate 50 mg tablet extended release 24 hr 25 mg PO DAILY 30 Days Qty: 30 0RF Discharge Orders: Discharge ED (Routine); Ordered 06/06/25 Ordered By: Leatha Olivo Referrals: Mamadou Nguyễn MD [Primary Care Provider] Discharge Diet: Full LIquid Patient Instructions: Otitis Externa - Adult, Abdominal Pain (ED), Opioid Safety, Pain Management, Patient Portal & Dax Instructions Activity Restrictions/Additional Instructions: Call your doctor in a.m. that did your gastric bypass for follow-up Muscle relaxers were sent to the pharmacy. Take as directed. Caution on sedation Return to ED for worsening pain, nausea, vomiting, or temperature greater than 100.4 ?F Print Language: Gibraltarian Coding Level of Care Code ED Sleeve Ironer for Carrie Melchor
[2025-06-06 00:21] LABS: Glucose Urine UA Negative (Normal); Nitrate Urine Negative (Negative); Specific Gravity, Urine 1.030 (1.005-1.030)
[2025-06-06 00:26] LABS: Add Urine Microscopic? YES
[2025-06-06] MEDS: morphine 4 mg/mL SDV 1 mL IVP (00:35)
[2025-06-06] MEDS: orphenadrine 30 mg/mL Inj 2 mL 60 MG IVP (00:36)
[2025-06-06 01:42] VITALS: BP 129/77; PULSE 63; RESP 16; O2SAT 96
== END 2025-06-06 01:44 | disposition home or self-care (01) ==
PROVIDERS: Emergency Provider Physician Assistant; PCP Family Medicine
DX: R16.1 Splenomegaly, not elsewhere classified (principal); R74.01 Elevation of levels of liver transaminase levels; H60.511 Acute actinic otitis externa, right ear; Z79.4 Long term (current) use of insulin; Z72.0 Tobacco use; I25.10 Atherosclerotic heart disease of native coronary artery without angina pectoris
CPT/HCPCS: 74177; 80053; 81001; 83690; 84703; 85025; 96361; 96374; 96375; 96376; 99285; J2270; J2360; J2405; J7030

== ENCOUNTER 2025-09-02 09:07 | Emergency (ER) | payer MEDICAID, SELFPAY ==
[2025-09-02 09:10] VITALS: BP 155/105; PULSE 70; RESP 16; TEMP 36.6; O2SAT 100; BMI 46.0
--- OUTSIDE RECORDS SUMMARY | 2025-09-02 09:12 | XMS_ITS | Clinical Summary ---
Author Organization [facility] Address [address] [place] [address] Phone Care Team Providers Care Masonry Instructor Name Role Phone Sargent, Meg JEAN Primary Care Provider [phone] Allergies Active Allergy Reactions Criticality Noted Date [...] sublingual use 25 Tablet 12/06/2020 3:53 PM POLLUTION CONTROL ENGINEER 1 Active docusate sodium (STOOL SOFTENER ORAL) [...] Atherosclerosis of coronary artery bypass graft of [place] heart with unstable angina pectoris 12/05/2020 Precordial [...] on file Legal Sex Female 1:20 PM POLLUTION CONTROL ENGINEER Gender Identity Not on file Sexual [...] 36.1 C (97 F) 01/11/2021 12:04 PM POLLUTION CONTROL ENGINEER Respiratory Rate 19 01/11/2021 1:54 PM POLLUTION CONTROL ENGINEER Oxygen Saturation 98% 04/04/2021 10:30 AM CDT [...] - 6.0 % 02/09/2019 12:56 PM CDT [facility] [employer] [facility] EST. AVG GLUCOSE, A1C 120 mg/dL 02/09/2019 12:56 PM CDT [facility] Blood Collection / Unknown 02/08/2019 6:26 AM CDT 02/08/2019 1:07 PM CDT Narrative [facility] - 02/09/2019 12:56 PM CDT HGB A1C INTERPRETATION NORMAL: <5.7% PRE-DIABETES: 5.7 - 6.4% DIABETES: 6.5% OR GREATER Brooks Cruz DO CHEMISTRY ORDERABLES Final R esult [facility] CLIA# [id number] [address] [place] [id number] from Last 3 Months or Most Recently Relevant to Health Maintenance [place] [address] [place] [address] [place] [address] [place] [id number] [facility] [employer] Commercial Member Subscriber Plan / Payer (Ef fective 2013-Present) Name:Karen Garcia Relation to Subscriber:Employee Name:[employer] Address: [place] [address] Payer ID:Not on file Group ID:Not on file Type:Workers Compensation Address: [address] [address] WORKERS COMP WORKERS COMP Advance Directives For more information, please contact: [phone] * Full Code (Latest Code Status on File) Date Activated Date Inactivated Comments 12/05/2020 1:17 AM 12/06/2020 5:50 PM Care Teams Masonry Instructor Relationship Specialty Start Date End Date Meg Sargent FNP [address] [place] [address] PCP - General Nurse Practitioner Family 12/04/20
--- OUTSIDE RECORDS SUMMARY | 2025-09-02 09:12 | XMS_ITS | Encounter Summary ---
Author Organization [facility] Address [address] [place] [address] Care Team Providers Care Dressage Instructor Name Role Phone Arie, Meg JEAN Primary Care Provider [phone] Encounter Details Date Type Department Care Team (Late st Contact Info) Description 06/28/2012 Ancillary Orders [facility] [place] [address] [place] [address] Thyroid disorder Social History Tobacco Use Types Packs/Day Years Used Date Smoking Tobacco: Never Assessed Comments Unknown Sex and Gender Information Value Date Recorded Sex Assigned at Not on file Legal Sex Female 1:20 PM NIGHT BAKER Gender Identity Not on file Sexual Orientation [...] - 4.80 uIU/mL 06/28/2012 11:19 PM CDT [facility] [place] Blood specimen (specimen) 06/28/2012 6:25 PM CDT 06/28/2012 9:59 PM CDT Jose Hess NP CHEMISTRY ORDERABLES Final R esult [facility] [place] CLIA # [id number] [address] [place] [address] * (ABNORMAL) CBC WITH DIFFERENTIAL (06/28/2012 6:25 PM CDT) WBC 9.3 4.0 - 10.0 K/uL 06/28/2012 10:22 PM CDT [facility] [place] RBC 4.83 3.93 - 5.22 M/uL 06/28/2012 10:22 PM CDT [facility] [place] HEMOGLOBIN 15.2 11.2 - 15.7 g/dL 06/28/2012 10:22 PM CDT [facility] [place] HEMATOCRIT 44.2 34.1 - 44.9 % 06/28/2012 10:22 PM CDT [facility] [place] MCV 91.5 79.4 - 94.8 fL 06/28/2012 10:22 PM CDT [facility] [place] MCH 31.5 25.6 - 32.2 pg 06/28/2012 10:22 PM CDT [facility] [place] MCHC 34.4 32.2 - 35.5 g/dL 06/28/2012 10:22 PM CDT [facility] [place] RDW 13.3 11.0 - 14.5 % 06/28/2012 10:22 PM CDT [facility] [place] RDW-STDEV 43.6 fL 06/28/2012 10:22 PM CDT [facility] [place] PLATELETS 184 163 - 337 K/uL 06/28/2012 10:22 PM CDT [facility] [place] MPV 11.8 10.0 - 14.8 fL 06/28/2012 10:22 PM CDT [facility] [place] NEUTROPHILS 54 34 - 71 % 06/28/2012 10:22 PM CDT [facility] [place] LYMPHOCYTES 34 19 - 52 % 06/28/2012 10:22 PM CDT [facility] [place] MONOCYTES 9 5 - 13 % 06/28/2012 10:22 PM CDT [facility] [place] EOSINOPHILS 3 1 - 6 % 06/28/2012 10:22 PM CDT [facility] [place] BASOPHILS 0 0 - 1 % 06/28/2012 10:22 PM CDT [facility] [place] NEUTROPHIL ABSOLUTE 5.00 1.56 - 6.13 K/uL 06/28/2012 10:22 PM CDT [facility] [place] LYMPHOCYTE ABSOLUTE 3.17 1.20 - 3.40 K/uL 06/28/2012 10:22 PM CDT [facility] [place] MONOCYTE ABSOLUTE 0.86(H) 0.24 - 0.36 K/uL 06/28/2012 10:22 PM CDT [facility] [place] EOSINOPHIL ABSOLUTE 0.23 0.04 - 0.36 K/uL 06/28/2012 10:22 PM CDT [facility] [place] BASOPHILS ABSOLUTE 0.03 0.01 - 0.08 K/uL 06/28/2012 10:22 PM CDT [facility] [place] Blood specimen (specimen) 06/28/2012 6:25 PM CDT 06/28/2012 9:59 PM CDT us Jose Hess NP HEMATOLOGY ORDERABLES Final Result Performing Organization Address City/State/[facility] Co de Phone Number [facility] [place] CLIA # [id number] [address] [place] [address] [address] [place] [address] documented in this encounter Visit Diagnoses Diagnosis Thyroid disorder Unspecified disorder of thyroid documented in this encounter Additional Health Concerns Infection Onset Date Last Indicated Resolved Time R/O COVID-19 12/04/2020 12/04/2020 12/05/2020 2:02 AM NIGHT BAKER documented as of this encounter Care Teams Dressage Instructor Relationship Specialty Start Date End Date Meg Sargent FNP [address] [place] [address] PCP - General Nurse Practitioner Family 12/04/20 documented as of this encounter
--- OUTSIDE RECORDS SUMMARY | 2025-09-02 09:12 | XMS_ITS | Encounter Summary ---
Author Organization [facility] Address [address] [place] [address] Care Team Providers Care [employer] Wireman Name Role Phone Sargent, Meg JEAN Primary Care Provider [phone] Encounter Details Date Type Department Care Team (Late st Contact Info) Description 02/08/2019 Lab Requisition [facility] Laboratory Services [address] [place] [address] Brooks Cruz, [address] [address] Social History Tobacco Use Types Packs/Day Years Used Date Smoking Tobacco: Every Day Cigarettes 1 20 Smokeless Tobacco: Never Alcohol Use Standard Drinks/Week Comments No 0 (1 standard drink = 0.6 oz pur e alcohol) Comments No Sex and Gender Information Value Date Recorded Sex Assigned at Not on file Legal Sex Female 1:20 PM AUTOMOTIVE DRIVABILITY 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 AVG GLUCOSE, A1C 120 mg/dL 02/09/2019 12:56 PM CDT [facility] Blood Collection / Unknown 02/08/2019 6:26 AM CDT 02/08/2019 1:07 PM CDT [facility] - 02/09/2019 12:56 PM CDT HGB A1C INTERPRETATION NORMAL: <5.7% PRE-DIABETES: 5.7 - 6.4% DIABETES: 6.5% OR GREATER us Brooks Cruz DO CHEMISTRY ORDERABLES Final R esult [facility] CLIA# [id number] [address] [place] [address] * (ABNORMAL) LIPID PANEL (02/08/2019 6:26 AM CDT) Pathologist [facility] CHOLESTEROL 156 <200 mg/dL 02/08/2019 2:51 PM CDT [facility] TRIGLYCERIDE 275(H) <150 mg/dL 02/08/2019 2:51 PM CDT [facility] HDL 31(L) 40 - 59 mg/dL 02/08/2019 2:51 PM CDT [facility] LDL CALCULATED 70 <100 mg/dL 02/08/2019 2:51 PM CDT [facility] NON-HDL CHOLESTEROL 125 <130 mg/dL 02/08/2019 2:51 PM CDT [facility] Blood Collection / Unknown 02/08/2019 6:26 AM CDT 02/08/2019 1:07 PM CDT [facility] - 02/08/2019 2:51 PM CDT [...] Cruz DO CHEMISTRY ORDERABLES Final R esult [facility] CLIA# [id number] [address] [place] [address] * (ABNORMAL) COMPREHENSIVE METABOLIC PANEL (02/08/2019 6:26 AM CDT) SODIUM 138 136 - 145 mmol/L 02/08/2019 2:51 PM CDT [facility] POTASSIUM 4.4 3.5 - 5.1 mmol/L 02/08/2019 2:51 PM CDT [facility] CHLORIDE 103 98 - 107 mmol/L 02/08/2019 2:51 PM CDT [facility] CO2 25 22 - 29 mmol/L 02/08/2019 2:51 PM CDT [facility] CALCIUM 9.3 8.6 - 10.0 mg/dL 02/08/2019 2:51 PM CDT [facility] BUN 13 6 - 20 mg/dL 02/08/2019 2:51 PM CDT [facility] CREATININE 1.00(H) 0.51 - 0.95 mg/dL 02/08/2019 2:51 PM CDT [facility] GLUCOSE 102(H) 74 - 99 mg/dL 02/08/2019 2:51 PM CDT [facility] TOTAL PROTEIN 7.2 6.4 - 8.3 g/dL 02/08/2019 2:51 PM CDT [facility] ALBUMIN 3.9 3.5 - 5.2 g/dL 02/08/2019 2:51 PM CDT [facility] BILIRUBIN TOTAL 0.4 0.2 - 1.0 mg/dL 02/08/2019 2:51 PM T [facility] ALKALINE PHOSPHATASE 102 35 - 104 U/L 02/08/2019 2:51 PM CDT [facility] AST 27 10 - 35 U/L 02/08/2019 2:51 PM [facility] ALT 31 <=35 U/L 02/08/2019 2:51 PM T [facility] GFR 60 >=60 mL/min/1. 73 sq meter 02/08/2019 2:51 PM [facility] Comment: eGFR has not been validated [...] 73 sq meter 02/08/2019 2:51 PM CDT [facility] ANION GAP 10 9 - 20 mmol/L 02/08/2019 2:51 PM [facility] Blood Collection / Unknown 02/08/2019 6:26 AM CDT 02/08/2019 1:07 PM CDT us Brooks Cruz DO CHEMISTRY ORDERABLES Final R esult [facility] CLIA# [id number] [address] [place] [address] documented in this encounter Visit Diagnoses Not on filedocumented in this encounter Additional Health Concerns Infection Onset Date Last Indicated Resolved Time R/O COVID-19 12/04/2020 12/04/2020 12/05/2020 2:02 AM AUTOMOTIVE DRIVABILITY TECHNICIAN documented as of this encounter Care Teams [employer] Wireman Relationship Specialty Start Date End Date Sargent, JEAN Weaver [address] [place] [address] PCP - General Nurse Practitioner Family 12/04/20 documented as of this encounter
--- OUTSIDE RECORDS SUMMARY | 2025-09-02 09:12 | XMS_ITS | Encounter Summary ---
Author Organization [facility] Address [address] [place] [address] Care Team Providers Care Supervisor Hot Dip Plating Name Role Phone Sargent, Meg JEAN Primary Care Provider [phone] Encounter Details Date Type Department Care Team (Late st Contact Info) Description 02/09/2012 Ancillary Orders [facility] Laboratory Services [place] [address] [place] [address] Hypothyroidism; HTN (hypertension) Social History Tobacco Use Types Packs/Day Years Used Date Smoking Tobacco: Never Assessed Comments Unknown Sex and Gender Information Value Date Recorded Sex Assigned at Not on file Legal Sex Female 1:20 PM GENETIC COUNSELOR Gender Identity Not on file Sexual Orientation [...] - 4.80 uIU/mL 02/10/2012 12:02 AM T [facility] [place] Blood specimen (specimen) 02/09/2012 7:40 PM CDT 02/09/2012 10:45 PM CDT Odin Santa DO CHEMISTRY ORDERABLES Final Resu lt [facility] [place] CLIA # [id number] [address] [place] [address] * (ABNORMAL) COMPREHENSIVE METABOLIC PANEL (02/09/2012 7:40 PM CDT) SODIUM 138 136 - 145 mmol/L 02/10/2012 12:01 AM T [facility] POTASSIUM 3.6 3.5 - 5.1 mmol/L 02/10/2012 12:01 AM [facility] CHLORIDE 102 98 - 107 mmol/L 02/10/2012 12:01 AM T [facility] CO2 29 21 - 32 mmol/L 02/10/2012 12:01 AM T [facility] CALCIUM 8.7 8.5 - 10.1 mg/dL 02/10/2012 12:01 AM T [facility] [place] BUN 9 7 - 18 mg/dL 02/10/2012 12:01 AM T [facility] CREATININE 1.10 0.60 - 1.30 mg/dL 02/10/2012 12:01 AM [facility] GLUCOSE 73(L) 74 - 106 mg/dL 02/10/2012 12:01 AM T [facility]AT[facility] SERVICES [facility] TOTAL PROTEIN 7.0 6.4 - 8.2 g/dL 02/10/2012 12:01 AM T [facility] [place] ALBUMIN 3.6 3.4 - 5.0 g/dL 02/10/2012 12:01 AM T [facility] BILIRUBIN TOTAL 0.4 0.2 - 1.0 mg/dL 02/10/2012 12:01 AM [facility] ALKALINE PHOSPHATASE 97 50 - 136 U/L 02/10/2012 12:01 AM CDT [facility] AST 16 15 - 37 U/L 02/10/2012 12:01 AM CDT [facility] ALT 31 30 - 65 U/L 02/10/2012 12:01 AM CDT [facility] GFR 56(L) >=60 mL/min/1.7 3 sq meter 02/10/2012 12:01 AM CDT [facility] GFR, 68 >=60 mL/min/1.7 3 sq meter 02/10/2012 12:01 AM T [facility] Blood specimen (specimen) 02/09/2012 7:40 PM CDT 02/09/2012 10:45 PM CDT [facility] - 02/10/2012 12:01 AM CDT eGFR [...] Santa DO CHEMISTRY ORDERABLES Final Resu lt [facility] CLIA # [id number] [address] [place] [address] * (ABNORMAL) CBC WITH DIFFERENTIAL (02/09/2012 7:40 PM CDT) WBC 9.5 4.0 - 10.0 K/uL 02/09/2012 11:57 PM CDT [facility] RBC 4.50 3.93 - 5.22 M/uL 02/09/2012 11:57 PM CDT [facility] HEMOGLOBIN 14.2 11.2 - 15.7 g/dL 02/09/2012 11:57 PM CDT [facility] HEMATOCRIT 42.0 34.1 - 44.9 % 02/09/2012 11:57 PM CDT [facility] MCV 93.3 79.4 - 94.8 fL 02/09/2012 11:57 PM CDT [facility] MCH 31.6 25.6 - 32.2 pg 02/09/2012 11:57 PM CDT [facility] MCHC 33.8 32.2 - 35.5 g/dL 02/09/2012 11:57 PM CDT [facility] [place] RDW 12.8 11.0 - 14.5 % 02/09/2012 11:57 PM CDT [facility] [place] RDW-STDEV 43.0 fL 02/09/2012 11:57 PM CDT [facility] [place] PLATELETS 203 163 - 337 K/uL 02/09/2012 11:57 PM CDT [facility] [place] MPV 11.5 [...] - 6.13 K/uL 02/09/2012 11:57 PM CDT [facility] [place] LYMPHOCYTE ABSOLUTE [...] - 0.08 K/uL 02/09/2012 11:57 PM CDT [facility] [place] Blood specimen (specimen) 02/09/2012 7:40 PM CDT 02/09/2012 10:45 PM CDT us Odin Santa DO HEMATOLOGY ORDERABLES Final Res ult [facility] [place] CLIA # [id number] [address] [facility] [address] [place] [address] documented in this encounter Visit Diagnoses Diagnosis Hypothyroidism Unspecified hypothyroidism HTN (hypertension) Unspecified essential hypertension documented in this encounter Additional Health Concerns Infection Onset Date Last Indicated Resolved Time R/O COVID-19 12/04/2020 12/04/2020 12/05/2020 2:02 AM GENETIC COUNSELOR documented as of this encounter Care Teams Supervisor Hot Dip Plating Relationship Specialty Start Date End Date Meg Sargent FNP [address] [place] [address] PCP - General Nurse Practitioner Family 12/04/20 documented as of this encounter
--- OUTSIDE RECORDS SUMMARY | 2025-09-02 09:12 | XMS_ITS | Encounter Summary ---
Author Organization [facility] Address [address] [place] [address] Care Team Providers Care Die Machine Operator Name Role Phone Sargent, Meg JEAN Primary Care Provider [phone] Encounter Details Date Type Department Care Team (Late st Contact Info) Description 02/16/[address] 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 Gender Identity Not on file Sexual [...] 136 - 145 mmol/L 02/16/2018 1:35 PM [facility] POTASSIUM 4.1 3.5 - 5.1 mmol/L 02/16/2018 1:35 PM [facility] CHLORIDE 104 98 - 107 mmol/L 02/16/2018 1:35 PM [facility] CO2 19(L) 22 - 29 mmol/L 02/16/2018 1:35 PM [facility] CALCIUM 9.2 8.6 - 10.0 mg/dL 02/16/2018 1:35 PM [facility] BUN 12 6 - 20 mg/dL 02/16/2018 1:35 PM [facility] CREATININE 1.07(H) 0.51 - 0.95 mg/dL 02/16/2018 1:35 PM [facility] GLUCOSE 112(H) 74 - 106 mg/dL 02/16/2018 1:35 PM [facility] TOTAL PROTEIN 7.2 6.4 - 8.3 g/dL 02/16/2018 1:35 PM [facility] ALBUMIN 4.1 3.5 - 5.2 g/dL 02/16/2018 1:35 PM [facility] BILIRUBIN TOTAL 0.4 0.2 - 1.0 mg/dL 02/16/2018 1:35 PM [facility] ALKALINE PHOSPHATASE 104 35 - 104 U/L 02/16/2018 1:35 PM [facility] AST 34 10 - 35 U/L 02/16/2018 1:35 PM [facility] ALT 44(H) <=35 U/L 02/16/2018 1:35 PM [facility] GFR 56(L) >=60 mL/min/1. 73 sq meter 02/16/2018 1:35 PM [facility] Comment: eGFR has not been validated for [...] 73 sq meter 02/16/2018 1:35 PM CDT [facility] ANION GAP 14 4 - 30 mmol/L 02/16/2018 1:35 PM CDT [facility] Blood Collection / Unknown 02/16/2018 6:15 AM CDT 02/16/2018 12:19 PM CDT us Brooks Cruz DO CHEMISTRY ORDERABLES Final R esult Performing Organization Address [facility] Co de Phone Number [facility] CLIA# [id number] [address] [place], [place] [address] * HEMOGLOBIN A1C (02/16/2018 6:15 AM CDT) Pathologist [facility] HEMOGLOBIN A1C 5.5 4.0 - 6.0 % 02/17/2018 7:24 AM CDT [facility] EST. AVG GLUCOSE, A1C 111 mg/dL 02/17/2018 7:24 AM CDT [facility] Blood Collection / Unknown 02/16/2018 6:15 AM CDT 02/16/2018 12:19 PM CDT Narrative [facility] - 02/17/2018 7:24 AM CDT Test performed on [employer] instrumentation using HPLC methodology us Brooks Cruz DO CHEMISTRY ORDERABLES Final R esult Performing Organization Address City/[facility]/ZIP Co de Phone Number [facility] CLIA# [id number] [address] [place] [address] * (ABNORMAL) LIPID PANEL (02/16/2018 6:15 AM CDT) CHOLESTEROL 249(H) <200 mg/dL 02/16/2018 1:35 PM CDT [facility] TRIGLYCERIDE 187(H) <150 mg/dL 02/16/2018 1:35 PM CDT [facility] HDL 40 40 - 59 mg/dL 02/16/2018 1:35 PM CDT [facility] LDL CALCULATED 172(H) <100 mg/dL 02/16/2018 1:35 PM T [facility] NON-HDL CHOLESTEROL 209(H) <130 mg/dL 02/16/2018 1:35 PM T [facility] Blood Collection / Unknown 02/16/2018 6:15 AM CDT 02/16/2018 12:19 PM CDT Narrative [facility] - 02/16/2018 1:35 PM CDT TOTAL [...] DO CHEMISTRY ORDERABLES Final R esult [facility] CLIA# [id number] [address] [employer] [place] [address] documented in this encounter Visit Diagnoses Not on filedocumented in this encounter Additional Health Concerns Infection Onset Date Last Indicated Resolved Time R/O COVID-19 12/04/2020 12/04/2020 12/05/2020 2:02 AM CNC SPECIALIST documented as of this encounter Care Teams Die Machine Operator Relationship Specialty Start Date End Date Sargent, JEAN Weaver [address] [place] [address] PCP - General Nurse Practitioner Family 12/04/20 documented as of this encounter
--- OUTSIDE RECORDS SUMMARY | 2025-09-02 09:12 | XMS_ITS | Encounter Summary ---
Author Organization [facility] Address [address] [place] [address] Care Team Providers Care Clinical Material Handler Name Role Phone Sargent, Meg WEBMETHODS CONSULTANT Primary Care Provider [phone] Encounter Details Date Type Department Care Team (Late st Contact Info) Description 02/27/2016 Lab Requisition [facility] Laboratory Services [address] [place] [address] [place] [address] Travis Lujan MD NO ADDRESS [...] on file Legal Sex Female 1:20 PM FINANCE ANALYST Gender Identity Not on file Sexual Orientation [...] 70 - 99 mg/dL [facility]2016 [facility] PM [facility] / Unknown 02/27/2016 8:27 AM CDT 02/27/2016 12:51 PM CDT [facility] - 02/27/2016 2:43 PM CDT <100 mg/dl: Normal Fasting Glucose 100-125 mg/dl: Impaired Fasting Glucose >/=126 mg/dl: Provisional diagnosis of Diabetes The diagnosis must be confirmed. us Travis Lujan MD CHEMISTRY ORDERABLES Final Res ult [facility] CLIA# [id number] [address] [place] [address] * (ABNORMAL) LIPID PANEL (02/27/2016 8:27 AM CDT) CHOLESTEROL 231(H) <200 mg/dL 02/27/2016 2:43 PM CDT [facility] TRIGLYCERIDE 106 <150 mg/dL 02/27/2016 2:43 PM CDT [facility] HDL 36(L) 40 - 59 mg/dL 02/27/2016 2:43 PM T [facility] LDL CALCULATED 174(H) <100 mg/dL 02/27/2016 2:43 PM T [facility] NON-HDL CHOLESTEROL 195(H) <130 mg/dL 02/27/2016 2:43 PM CDT [facility] Blood Collection / Unknown 02/27/2016 8:27 AM CDT 02/27/2016 12:51 PM CDT [facility] - 02/27/2016 2:43 PM CDT TOTAL [...] ORDERABLES Final Res ult [facility] CLIA# [id number] [address] [place] [address] documented in this encounter Visit Diagnoses Not on filedocumented in this encounter Additional Health Concerns Infection Onset Date Last Indicated Resolved Time R/O COVID-19 12/04/2020 12/04/2020 12/05/2020 2:02 AM FINANCE ANALYST documented as of this encounter Care Teams Clinical Material Handler Relationship Specialty Start Date End Date Meg Sargent FNP [address] [place] [address] PCP - General Nurse Practitioner Family 12/04/20 documented as of this encounter
--- OUTSIDE RECORDS SUMMARY | 2025-09-02 09:12 | XMS_ITS | Encounter Summary ---
Author Organization [facility] Address [address] [place] [address] Care Team Providers Care Can Filler Name Role Phone Meg Sargent Primary Care Provider [phone] Reason for Referral * Radiology Services (Urgent) - Closed Specialty Diagnoses / Procedures Referred By Contletitia t Referred To Contact Radiology Diagnoses Other specified abnormal findings of blood chemistry Upper abdominal pain, unspecified Procedures US ABDOMEN LIMITED Meg Sargent FNP [address] [place] [address] Phone: tel: fax: [facility] Ultrasound [address] [place] [address] Phone: tel: fax: Referral ID Status Reason Start Date Expiration Date V isits Requested Visits Authorized [id number] Closed [facility] to Schedule 12/20/2020 01/20/2022 1 1 O SALES ACCOUNT EXECUTIVE Encounter Details Date Type Department Care Team (Latest Contact Info) Description 12/20/2020 Ancillary Orders [facility] Pre-Registration [place] CALL TO MAKE APPOINTMENT ONLY [address] [place] [address] Meg Sargent FNP [address] [place] [address] Other specified abnormal findings of [...] on file Legal Sex Female 1:20 PM RADIO SALES ACCOUNT EXECUTIVE Gender Identity Not on file Sexual Orientation [...] COVID-19? No / Unsure 12/21/2020 8:31 AM RADIO SALES ACCOUNT EXECUTIVE documented as of this encounter Plan of Treatment Not on file documented as of this encounter Results * US ABDOMEN LIMITED (12/21/2020 9:50 AM RADIO SALES ACCOUNT EXECUTIVE) Anatomical Region Laterality Modality Abdomen Ultrasound 12/21/2020 9:50 AM RADIO SALES ACCOUNT EXECUTIVE Impressions 12/21/2020 10:30 AM RADIO SALES ACCOUNT EXECUTIVE IMPRESSION: 1. Hepatomegaly and increased liver echotexture which may indicate fatty infiltration and/or diffuse hepatocellular disease. 2. Postop cholecystectomy. [id number] Narrative 12/21/2020 10:30 AM RADIO SALES ACCOUNT EXECUTIVE Exam: US ABDOMEN LIMITED Date/Time of Exam: [...] and/or diffuse hepatocellular disease. 2. Postop cholecystectomy. [id number] [facility] US ORDERABLES Final Result documented in this encounter Visit Diagnoses Diagnosis Other specified abnormal findings of blood chemistry Upper abdominal pain, unspecified Other specified abnormal findings of blood chemistry Upper abdominal pain, unspecified documented in this encounter Care Teams Can Filler Relationship Specialty Start Date End Date [place], Meg, FNP [address] [place] [address] PCP - General Nurse Practitioner Family 12/04/20 documented as of this encounter
[2025-09-02 10:11] LABS: Respiratory Syncytial Virus Ce NEGATIVE (Negative); SARS-CoV-2 PCR NEGATIVE (Negative)
--- NOTE | 2025-09-02 10:28 | XRR_ITS ---
PROCEDURE INFORMATION: Exam: XR Chest Exam date and time: 09/02/2025 10:54 AM Age: 50 years old Clinical indication: Cough; Additional info: Cough; Congestion; Fever x 4days; Pleurisy TECHNIQUE: Imaging protocol: Radiologic exam of the chest. Views: 1 view. COMPARISON: CR XR chest 1V portable [id number] 11/14/2024 10:01 AM FINDINGS: Lungs: Unremarkable. No consolidation. Pleural spaces: Unremarkable. No pleural effusion. No pneumothorax. Heart/Mediastinum: Stable cardiomediastinal silhouette. Bones/joints: Post median sternotomy. XR/XR chest 1V portable [id number] IMPRESSION: No acute cardiopulmonary findings.
--- NOTE | 2025-09-02 11:02 | W.ED.URI ---
HPI - URI/Sore Throat General: Chief Complaint: Upper Respiratory Infection Stated Complaint: CP Lung Pain Coughing hot and cold runny nose Time Seen by Provider: 09/02/25 10:47 History of Present Illness: 50-year-old female presents emergency room complaining of not feeling well for over a week. mildly productive cough significant nasal congestion and drainage. She has 2 grandchildren that she is in contact with that have also been sick. No vomiting no diarrhea. No dysuria urgency or frequency. Associated symptoms: Reports chills, fever(s) and nasal congestion; Deny abdominal pain or chest pain Related Data Home Medications ?Medication ?Instructions ?Recorded ?Confirmed pramipexole 0.5 mg tablet 0.5 mg PO DAILY PRN Restless Leg(S) 04/04/22 09/07/25 ezetimibe 10 mg tablet 10 mg PO BEDTIME 06/17/24 09/07/25 evolocumab 140 mg/mL subcutaneous 140 mg SUBCUT Q14D 08/01/24 09/07/25 pen injector (Savage Kaur) isosorbide mononitrate 60 mg 120 mg PO DAILY 09/30/24 09/07/25 tablet,extended release 24 hr levothyroxine 150 mcg tablet 150 mcg PO DAILY 11/14/24 09/07/25 omeprazole 20 mg capsule,delayed 20 mg PO DAILY 02/07/25 09/07/25 release Previous Rx's ?Medication ?Instructions ?Recorded lisinopril 10 mg tablet 10 mg PO DAILY #30 tabs 06/18/24 alprazolam 0.25 mg tablet (Xanax) 0.25 mg PO DAILY PRN anxiety #15 08/09/24 tabs methocarbamol 500 mg tablet 500 mg PO Q8H PRN muscle spasm #30 06/06/25 tabs aripiprazole 2 mg tablet (Abilify) 2 mg PO DAILY #30 tabs 07/26/25 modafinil 200 mg tablet (Provigil) 200 mg PO DAILY #30 tabs 07/26/25 venlafaxine 75 mg tablet 75 mg PO BID #60 tabs 07/26/25 amoxicillin 500 mg-potassium 1 tab PO TID #30 tabs 09/02/25 clavulanate 125 mg tablet (Augmentin) Allergies Allergy/AdvReac Type Severity Reaction Status Date / Time codeine Allergy Unknown Unknown Verified 09/07/25 15:37 Review of Systems Const: Reports: fever(s), chills, body aches, fatigue, malaise and night sweats ENMT: Reports: nasal congestion Card: Denies: chest pain Resp: Reports: dyspnea, productive cough and chest congestion GI: Denies: abdominal pain : Denies: dysuria, urinary frequency or urinary urgency Musc: Denies: neck pain or back pain Skin/Breast: Denies: rash PFSH ED PFSH: Medical History Nicotine use disorder History of coronary artery disease Unstable angina pectoris Unstable angina Obesity, morbid, BMI 50 or higher Unstable angina Panic disorder Generalized anxiety disorder Psychiatric care Anxiety GERD (gastroesophageal reflux disease) Hypothyroidism Coronary artery disease Surgical History History of cholecystectomy History of tonsillectomy History of tubal ligation History of hysterectomy History of coronary artery bypass graft Family History Other CAD (coronary artery disease) Stroke Social History Smoking and tobacco/nicotine status: current every day tobacco/nicotine user Alcohol intake: never Physical Exam Const: GENERAL APPEARANCE: cooperative ORIENTATION/CONSCIOUSNESS: Yes awake, Yes oriented to person, Yes oriented to place and Yes oriented to time HENMT: COMMON NORMALS: normocephalic, atraumatic and hearing grossly normal bilaterally HEAD & SCALP: normocephalic and atraumatic FACE & SINUS: sinus tenderness Resp: COMMON NORMALS: normal respiratory effort, No retractions, No use of accessory muscles and clear to auscultation bilaterally AUSCULTATION: clear to auscultation bilaterally Cardio: COMMON NORMALS: regular rate, regular rhythm and No murmurs present (Cardio) RATE: regular rate RHYTHM: regular rhythm GI: COMMON NORMALS: Soft to palpation and No hepatosplenomegaly present AUSCULTATION: Yes normoactive bowel sounds PALPATION: Yes Soft to palpation, No Tenderness to palpation present (GI), No Guarding due to palpation present (GI) and Yes No hepatosplenomegaly present Extremity: COMMON NORMALS: normal to inspection, capillary refill normal, no clubbing, cyanosis or edema, no calf tenderness and no pedal edema Neuro: SENSORIUM/ORIENTATION: Yes oriented to person, Yes oriented to place and Yes oriented to time Skin: COMMON NORMALS: no rashes or lesions noted GENERAL SKIN EXAM: no rashes or lesions noted Course Vital Signs: Vital signs: Vital Signs Temperature 97.9 F 09/02/25 09:10 Pulse Rate 71 09/02/25 11:18 Respiratory Rate 16 09/02/25 09:10 Blood Pressure 146/99 09/02/25 11:18 Pulse Oximetry 98 09/02/25 11:18 Oxygen Delivery Me thod Room Air 09/02/25 09:10 MDM - URI/Sore Throat Medical Decision Making Lungs are clear chest x-ray normal. There is no sign of pneumonia. Will treat for sinusitis started on oral antibiotics. Medical Records I reviewed the patient's medical records. Lab Data I reviewed the patient's lab results. Radiology Impressions Chest X-Ray 09/02/25 10:28 IMPRESSION: No acute cardiopulmonary findings. Laboratory Results Influenza A (PCR) Negative (Negative) 09/02/25 09:30 Influenza Type B (PCR) Negative (Negative) 09/02/25 09:30 RSV (PCR) Negative (Negative) 09/02/25 09:30 SARS-CoV-2 (PCR) Negative (Negative) 09/02/25 09:30 All radiology interpretation(s) finalized by discharge Discharge Plan Discharge Patient Disposition: Home Clinical Impression: Sinusitis Condition: Stable Prescriptions: New amoxicillin-pot clavulanate [Augmentin] 500-125 mg tablet 1 tab PO TID Qty: 30 0RF No Action Repatha SureClick 140 mg/mL pen injector 140 mg SUBCUT Q14D pramipexole 0.5 mg tablet 0.5 mg PO DAILY PRN (Reason: Restless Leg(S)) isosorbide mononitrate 60 mg tablet extended release 24 hr 120 mg PO DAILY omeprazole 20 mg capsule,delayed release(DR/EC) 20 mg PO DAILY venlafaxine 75 mg tablet 75 mg PO BID Qty: 60 1RF modafinil [Provigil] 200 mg tablet 200 mg PO DAILY Qty: 30 1RF aripiprazole [Abilify] 2 mg tablet 2 mg PO DAILY Qty: 30 2RF alprazolam [Xanax] 0.25 mg tablet 0.25 mg PO DAILY PRN (Reason: anxiety) Qty: 15 0RF ezetimibe 10 mg tablet 10 mg PO BEDTIME lisinopril 10 mg tablet 10 mg PO DAILY Qty: 30 3RF levothyroxine 150 mcg tablet 150 mcg PO DAILY methocarbamol 500 mg tablet 500 mg PO Q8H PRN (Reason: muscle spasm) Qty: 30 0RF Discharge Orders: Discharge ED (Routine); Ordered 09/02/25 Ordered By: Wilder Thomas Referrals: Alexia Maira FNP [Primary Care Provider, Nurse Practitioner] Discharge Diet: Usual diet Discharge Activity: Increase activity as tolerated Patient Instructions: Opioid Safety, Pain Management, Patient Portal & Dax Instructions Activity Restrictions/Additional Instructions: [facility]. It is very important that you follow up as instructed or that you return to the Emergency Department should you have concerns or if your condition changes or worsens in any way. Emergency department visits are focused on emergent conditions, in some cases you may require further evaluation on an outpatient basis. You are seen in the emergency room with complaints of generally not feeling well with a cough and sinus congestion for 1 week chest x-ray did not show any acute infiltrates flu COVID and RSV are negative. You are given Augmentin 1 pill 3 times a day for 10 days for sinus infection you can use [id number] cough cold medications (Please note that included in your discharge packet is information concerning opioid safety and pain management. This information is given to all patients were discharged from the ER regardless of their discharge diagnosis or the medicines they usually take or are prescribed.) Print Language: Maltese Coding Level of Care Code ED Trimmer Hand for Carrie Melchor
[2025-09-02 11:18] VITALS: BP 146/99; PULSE 71; O2SAT 98
== END 2025-09-02 11:19 | disposition home or self-care (01) ==
PROVIDERS: Emergency Provider Family Medicine; PCP Nurse Practitioner Family
DX: J32.9 Chronic sinusitis, unspecified (principal); Z11.52 Encounter for screening for COVID-19; Z72.0 Tobacco use; I25.10 Atherosclerotic heart disease of native coronary artery without angina pectoris
CPT/HCPCS: 71045; 87637; 99284